=== PATIENT | male | born 1935 | race Caucasian/White ===

== ENCOUNTER → 2017-05-21 | Outpatient (CLI) | payer MEDICARE, OTHER ==
--- NOTE | 2017-05-21 16:32 | XR ---
EXAMINATION TYPE: XR chest 2V DATE OF EXAM: 05/21/2017 COMPARISON: Prior chest x-ray 07/27/2010, plain film 04/16/2017. HISTORY: Hypertension, preop TECHNIQUE: Frontal and lateral views of the chest are obtained. FINDINGS: There is no focal air space opacity, pleural effusion, or pneumothorax seen. Right apical pleural scarring greater than left is again noted. The cardiac silhouette size is stable. Arthropath y noted, hypertrophic change of the acromioclavicular joint on the right. There is distortion of the proximal humerus as on plain film, there are findings of osteoarthritis. The osseous structures are i ntact. IMPRESSION: No acute cardiopulmonary process.
== END | disposition home or self-care (01) ==
LOC: RADXRMAIN 14:55
PROVIDERS: ATTEND Family Medicine
DX: I10 Essential (primary) hypertension (principal)
CPT/HCPCS: 71020

== ENCOUNTER → 2018-10-21 | Outpatient (CLI) | payer MEDICARE, OTHER ==
--- NOTE | 2018-10-21 13:30 | US ---
EXAMINATION TYPE: US carotid duplex BILAT DATE OF EXAM: 10/21/2018 COMPARISON: NONE CLINICAL HISTORY: R55 Syncope. Patient complains of right sided weakness, and lightheadedness after s itting (not laying). History of CA, base of tongue. Chemotherapy and Radiation finished in 2004. Narinder es any surgical intervention. EXAM MEASUREMENTS: RIGHT: Peak Systolic Velocity (PSV) cm/sec ----- Right CCA: 77.8 ----- Right ICA: 122.2 ----- Right ECA: 106.1 ICA/CCA ratio: 1.6 RIGHT: End Diastole cm/sec ----- Right CCA: 28.5 ----- Right ICA: 33.3 ----- Right ECA: 18.8 LEFT: Peak Systolic Velocity (PSV) cm/sec ----- Left CCA: 71.5 ----- Left ICA: 123.8 ----- Left ECA: 104.4 ICA/CCA ratio: 1.7 LEFT: End Diastole cm/sec ----- Left CCA: 23.5 ----- Left ICA: 28.5 ----- Left ECA: 20.4 VERTEBRALS (direction of flow): Right Vertebral: Antegrade Left Vertebral: Antegrade Rhythm: Normal Mild atherosclerotic changes seen. No increased flow noted. Difficulty identifying right internal jug ular vein. IMPRESSION: Values approach criteria for 50% stenosis of the bilateral internal carotid arteries how ever do not meet criteria at this time. No hemodynamically significant stenosis is seen on the curren t exam. Criteria for Assigning % of Stenosis / Diameter reduction (Estimation based on the indirect measurements of the internal carotid artery velocities (ICA PSV). 1. Normal (no stenosis)=ICA PSV < 125 cm/s: ratio < 2.0: ICA EDV<40 cm/s. 2. Less than 50% stenosis=ICA PSV < 125 cm/s: ratio < 2.0: ICA EDV<40 cm/s. 3. 50 to 69% stenosis=ICA PSV of 125 to 230 cm/s: ration 2.0 ? 4.0: ICA EDV 40-100 cm/s. 4. Greater than 70% stenosis to near occlusion= ICA PSV > 230 cm/s: ratio > 4.0: ICA EDV > 100 cm/s. 5. Near occlusion= ICA PSV velocities may be low or undetectable: variable ratio and ICA EDV. 6. Total occlusion=unable to detect flow.
--- NOTE | 2018-10-21 13:44 | CT ---
EXAMINATION TYPE: CT brain w con DATE OF EXAM: 10/21/2018 COMPARISON: None INDICATION: Right sided weakness, cholesterol in right eye-per patient DLP: 1036.0 mGycm, Automated exposure control for dose reduction was used. CONTRAST: 100 mL Isovue-300 CT of the brain is performed utilizing 3 mm thick sections through the posterior fossa and 3 mm thick sections through the remaining calvarium. Study is performed within 24 hours of arrival to the hosp ital. No abnormal hyperdensity is present to suggest an acute intracranial hemorrhage. No mass lesion is evident. No acute infarcts are evident. Minimal periventricular white matter hypodensity is present, likely on the basis of chronic white matter ischemic changes. Ventricles and sulci are appropriate for the patient age. No abnormal enhancement is evident. The globes as visualized appear unremarkable. Intraconal and extr aconal fat appears normal. Extraocular muscles are unremarkable. Optic nerves appear normal. Paranasal sinuses and mastoid air cells within the [id number] are clear. IMPRESSIONS: 1. Mild chronic appearing periventricular white matter ischemic changes. 2. No abnormal enhancement.
== END | disposition home or self-care (01) ==
LOC: RADUSMAIN 10:31
PROVIDERS: ATTEND Family Medicine
DX: I65.23 Occlusion and stenosis of bilateral carotid arteries (principal)
CPT/HCPCS: 82565; 84520; 93880; 70460; 36415; Q9967

== ENCOUNTER → 2019-02-11 | Outpatient (CLI) | payer MEDICARE, OTHER ==
--- NOTE | 2019-02-11 13:33 | US ---
EXAMINATION TYPE: US duplex aorta DATE OF EXAM: 02/11/2019 COMPARISON: NONE CLINICAL HISTORY: Z13.6 screening for cardiovascular disorders. Screening for cardiovascular disorder s, patient states no other symptoms. EXAM MEASUREMENTS: Abdominal Aorta: Proximal: 2.5 x 2.3cm Mid: 2.2 x 2.2cm Distal: 2.0 x 1.7cm Right Iliac: 1.1 x 1.0cm Left Iliac: 1.1 x 1.1cm No AAA seen at this time. IMPRESSION: No sonographic evidence of abdominal aortic aneurysm in the visualized portions of the ab dominal aorta.
== END | disposition home or self-care (01) ==
LOC: RADUSWWP 12:56
PROVIDERS: ATTEND Family Medicine
DX: Z13.6 Encounter for screening for cardiovascular disorders (principal)
CPT/HCPCS: 93979

== ENCOUNTER → 2019-08-16 | Outpatient (CLI) | payer MEDICARE, OTHER ==
--- NOTE | 2019-08-16 16:17 | XR ---
EXAMINATION TYPE: XR cervical spine comp DATE OF EXAM: 08/16/2019 CLINICAL HISTORY: pain COMPARISON: NONE TECHNIQUE: Frontal, lateral, oblique, swimmers, and open mouth view of the cervical spine are obtaine d. FINDINGS: The cervical spine is visualized in its entirety from C1 thru the top of T1 level. It is s atisfactory in alignment without evidence of acute fracture or dislocation. The pre-vertebral soft t issue appears within normal limits. Severe multilevel degenerative disc disease with spondylosis. Paolo ateral neural foraminal encroachment at C3-4 C4-5 and C5-6. The C1-C2 articulation is unremarkable on the open mouth view. The oblique images are within normal limits. IMPRESSION: No acute fracture or dislocation is seen in the cervical spine.ICD 10 NO FRACTURE, INITI AL EVALUATION
== END | disposition home or self-care (01) ==
LOC: RADXRMAIN 15:41
PROVIDERS: ATTEND Family Medicine
DX: M54.2 Cervicalgia (principal)
CPT/HCPCS: 72050

== ENCOUNTER → 2019-09-02 | Outpatient (CLI) | payer MEDICARE, OTHER ==
--- NOTE | 2019-09-02 22:03 | MR ---
EXAMINATION TYPE: MR cervical spine wo con DATE OF EXAM: 09/02/2019 COMPARISON: None HISTORY: 84-year-old male Neck pain into right arm, weakness TECHNIQUE: Multiplanar, multisequence images of the cervical spine were acquired. FINDINGS: No craniocervical junction abnormality, predental space widening, or prevertebral soft tissue swellin g. Preserved alignment of the cervical spine. Marked diffuse heterogeneity of marrow signal likely corresponding to mixed Modic changes, primarily sclerotic Modic changes. Scattered moderate to severe discussion plate degenerative changes present, greatest at C3-C4 and the n at C6-C7. 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 Some degenerative bridging interbody ankylosis across C3-C4. Desiccated discs are present throughout with disc osteophyte complex formation as well as marked liga ment flavum thickening. Hypertrophic facet and uncovertebral joint arthropathy throughout. From C2 through C5 levels, there is severe spinal canal stenoses varying between 3.4 and 4.6 mm AP ca nal dimension. It impingement of the cord at these levels both dorsally and ventrally. At C3-C4, there is some focal increased signal within the right hemicord with associated volume loss suggesting chronic compressive myelomalacia. At C5-C6, there is moderate spinal canal stenosis with AP canal dimension of 6.4 mm also with flatten ing of both the dorsal and ventral cord. Multilevel moderate neural foraminal stenoses are present throughout, more severe at C3-C4 and on the right at C5-C6. IMPRESSION: 1. Moderate to advanced disc/endplate degenerative change along with advanced hypertrophic facet and uncovertebral joint arthropathy and ligamentum flavum thickening. 2. There is underlying congenital spinal canal stenosis with negative AP canal dimension of 9 mm. 3. Overall changes result in severe spinal canal stenoses from C2 through C5 levels with AP canal dim ension varying between 3.4 and 4.6 mm. There is impingement of the cord at these levels and a focus o f chronic compressive myelomalacia within the right hemicord at the C3-C4 level. 4. Moderate spinal canal stenosis at C5-C6 also with flattening of both the dorsal and ventral cord a t this level. 5. Moderate neuroforaminal stenoses throughout, more severe on both sides at C3-C4 and on the right a t C5-C6. 6. Extensive marrow heterogeneity likely secondary to combination of mixed Modic endplate changes and red marrow hyperplasia.
== END | disposition home or self-care (01) ==
LOC: RADMRIMAIN 12:46
PROVIDERS: ATTEND Family Medicine
DX: M48.02 Spinal stenosis, cervical region (principal); M47.812 Spondylosis without myelopathy or radiculopathy, cervical region
CPT/HCPCS: 72141

== ENCOUNTER → 2020-04-06 | Outpatient (CLI) | payer MEDICARE, OTHER ==
[2020-04-06 12:00] LABS: Basophils % (A) 0 %; Eosinophils # (A) 0.1 k/uL (0-0.7); Eosinophils % (A) 1 %; HCT 39.9 % (39.0-53.0); HGB 13.1 gm/dL (13.0-17.5); Lymphocytes # (A) 1.2 k/uL (1.0-4.8); Lymphocytes % (A) 12 %; MCH 32.9 pg (25.0-35.0); MCHC 32.9 g/dL (31.0-37.0); Mean Platelet Volume 8.5; Monocytes # (A) 0.5 k/uL (0-1.0); Monocytes % (A) 5 %; Neutrophils # (A) 7.8 k/uL (1.3-7.7); Neutrophils % (A) 80 %; Platelet Count 194 k/uL (150-450); RBC 3.99 m/uL (4.30-5.90); RDW 13.1 % (11.5-15.5); WBC 9.8 k/uL (3.8-10.6)
[2020-04-06 12:24] LABS: Calcium 9.2 mg/dL (8.4-10.2); Potassium 4.7 mmol/L (3.5-5.1)
== END | disposition home or self-care (01) ==
LOC: LABPAT 10:34
PROVIDERS: ATTEND Urology
DX: Z01.818 Encounter for other preprocedural examination (principal); N40.1 Benign prostatic hyperplasia with lower urinary tract symptoms; Z79.899 Other long term (current) drug therapy; I10 Essential (primary) hypertension
CPT/HCPCS: 36415; 80048; 85025; 93005

== ENCOUNTER 2020-04-13 06:21 | Day surgery (SDC) | payer MEDICARE, OTHER ==
[2020-04-10 11:57] VITALS: BMI 29.2
--- NOTE | 2020-04-10 13:14 | P.GSHP ---
History of Present Illness H&P Date: 04/06/20 Chief Complaint: Difficulty voiding The patient is an 85-year-old white male with a history of BPH. He was placed on tamsulosin in December 2019. Finasteride was added the following month. However, he continues to experience difficulty voiding, and bladder emptying is incomplete. He was found to have a UTI on 04/04/2020. A urine culture was sent, and he was placed on ciprofloxacin. He has elected to undergo a TURP and comes for this reason. - Constitutional Constitutional: Denies chills, Denies fever - Gastrointestinal Gastrointestinal: Reports diarrhea - Genitourinary (Female) Genitourinary: Reports dysuria, Reports urinary frequency Past Medical History - Past Family History Daughter(s) Family Medical History: Cancer Additional Family Medical History / Comment(s): colon cancer Mother Brother(s) Family Medical History: Myocardial Infarction (MA) Medications and Allergies Home Medications Medication Instructions Recorded Confirmed Type Acetaminophen [Tylenol Extra 500 - 1,000 mg PO BID PRN 05/28/17 04/10/20 History Strength] Aspirin 81 mg PO DAILY 05/28/17 04/10/20 History Atorvastatin [Lipitor] 10 mg PO HS 05/28/17 04/10/20 History Cholecalciferol [Vitamin D3] 2,000 unit PO DAILY 05/28/17 04/10/20 History Levothyroxine Sodium [Synthroid] 50 mcg PO DAILY 05/28/17 04/10/20 History Saw [place] 450 mg PO BID 05/28/17 04/10/20 History Ciprofloxacin HCl [Cipro] 250 mg PO BID 04/10/20 04/10/20 History Finasteride [Proscar] 5 mg PO DAILY 04/10/20 04/10/20 History Montelukast Sodium [Singulair] 10 mg PO HS 04/10/20 04/10/20 History Tamsulosin HCl [Flomax] 0.4 mg PO BID 04/10/20 04/10/20 History Allergies Allergy/AdvReac Type Severity Reaction Status Date / Time Sulfa (Sulfonamide Allergy Itching Verified 04/10/20 11:13 Antibiotics) Surgical - Exam - General well developed, well nourished, no distress - Respiratory normal respiratory effort, clear to auscultation - Cardiovascular Rhythm: regular Abnormal Heart Sounds: no systolic murmur, no diastolic murmur, no rub, no S3 Gallop, no S4 Gallop, no click, no other - Abdomen Abdomen: soft, non tender, no guarding, no rigid, no rebound - Genitourinary normal penis with no external lesions, testicles non-tender - Rectum Rectum: normal sphincter tone, no masses, other (Prostate moderately enlarged but smooth) - Psychiatric oriented to time, oriented to person, oriented to place, speech is normal, memory intact Assessment and Plan (1) Benign prostatic hyperplasia with lower urinary tract symptoms Status: Acute Code(s): N40.1 - BENIGN PROSTATIC HYPERPLASIA WITH LOWER URINARY TRACT SYMP SNOMED Code(s): 234129847 Plan: Cystoscopy, bipolar transurethral resection of prostate (TURP). The procedure has been reviewed in detail with the patient and his . They are aware of potential risks, which include anesthesia, bleeding, infection, urinary incontinence, vesical neck contracture, urethral stricture, and persistent incomplete bladder emptying.
[~2020-04-13 06:21] MED LIST: GENTAMICIN 100 MG in SODIUM CHLORIDE 0.9% 100 ML IVPB ONE; HYDROmorphone 0.5 MG/0.5 ML SYRINGE IVP PRN; ONDANSETRON 4 MG/2 ML VIAL IVP ONE
[2020-04-13] MEDS: LACTATED RINGERS 1,000 ML IV SCH ×3 (07:00→13:35)
[2020-04-13] MEDS ORDERED: MIDAZOLAM 2 MG/2 ML VIAL ONE (07:31)
[2020-04-13] MEDS ORDERED: fentaNYL (PF) 50 MCG/ML 2 ML AMP ONE (07:31)
[2020-04-13 09:07] VITALS: TEMP 97
--- NOTE | 2020-04-13 09:10 | P.OP ---
Date of Procedure: 04/13/20 Preoperative Diagnosis: BPH with obstruction Postoperative Diagnosis: BPH with obstruction, bulbous urethral stricture Procedure(s) Performed: Cystoscopy, direct visual internal ureterotomy (DVIU), bipolar transurethral resection of prostate (TURP) Anesthesia: spinal Surgeon: Samson Ruffin Estimated Blood Loss (ml): 30 IV fluids (ml): 400 Pathology: other (Prostate chips) Condition: stable Disposition: PACU Indications for Procedure: The patient is an 85-year-old white male with a history of BPH. He was placed on tamsulosin in December 2019. Finasteride was added the following month. However, he continues to experience difficulty voiding, and bladder emptying is incomplete. He was found to have a UTI on 04/04/2020. A urine culture was sent, and he was placed on ciprofloxacin. He has elected to undergo a TURP and comes for this reason. Operative Findings: 1) Wide caliber bulbous urethral stricture. 2) Obstructing high median bar Description of Procedure: The patient was taken in the operating room and placed in the dorsolithotomy position after being given a spinal anesthetic. The external genitalia was prepped and draped sterilely. The Jake urethrotome was used to incise the urethra to 25-Prydeinig. The 25-Prydeinig ACMI resectoscope sheath was introduced into the urethra under direct vision. Within the proximal bulbous urethra was a wide caliber stricture, through which the resectoscope could not be advanced. The visual urethrotome was used to incise the stricture at the 12 o'clock position, allowing passage of the resectoscope into the bladder. The bladder was inspected. Both ureteral orifices were of normal anatomic location and configuration, and clear urine effluxed from both. No tumors or foreign bodies were seen. Examination of the prostate revealed complete obstruction with a bilobar configuration. The majority of the obstruction was due to a high median bar. Using the bipolar cutting loop, the midline of the prostate was resected, from the vesicle neck up to the verumontanum. This opened the prostatic fossa nicely. Lateral lobe tissue was then resected from 3:00 to 9:00, leaving the prostatic fossa open. The prostatic fossa was then carefully examined, and any areas of bleeding were controlled with electrocautery. Excellent hemostasis was attained. The resectoscope was withdrawn into the bulbous urethra. The external urinary sphincter remained intact. All prostate chips from the bladder. These were saved and sent for pathologic examination. The resectoscope was removed, and a 20 Prydeinig Coude Lopez catheter was placed. The return was clear. The patient tolerated the procedure well was taken to the recovery room in stable condition.
[2020-04-13 11:09] VITALS: RESP 18
[2020-04-13 12:29] VITALS: BP 126/74; PULSE 86
== END 2020-04-13 14:00 | disposition home or self-care (01) ==
LOC: OR 06:21
PROVIDERS: ATTEND Urology
DX: N40.1 Benign prostatic hyperplasia with lower urinary tract symptoms (principal); N13.8 Other obstructive and reflux uropathy; N35.912 Unspecified bulbous urethral stricture, male; I25.10 Atherosclerotic heart disease of native coronary artery without angina pectoris; E78.5 Hyperlipidemia, unspecified; E07.9 Disorder of thyroid, unspecified; K21.9 Gastro-esophageal reflux disease without esophagitis; Z88.2 Allergy status to sulfonamides; Z79.82 Long term (current) use of aspirin; Z79.890 Hormone replacement therapy; Z79.899 Other long term (current) drug therapy; Z90.49 Acquired absence of other specified parts of digestive tract; Z98.890 Other specified postprocedural states; Z87.440 Personal history of urinary (tract) infections; Z85.810 Personal history of malignant neoplasm of tongue; Z82.49 Family history of ischemic heart disease and other diseases of the circulatory system; Z80.0 Family history of malignant neoplasm of digestive organs
CPT/HCPCS: 88305; 52601; J2250; J0690; J2405; J3010; J1580

== ENCOUNTER → 2020-09-11 | Outpatient (CLI) | payer MEDICARE ==
[2020-09-11 22:57] LABS: Basophils # (A) 0.01 X 10*3/uL (0.00-0.10); Basophils % (A) 0.2 %; Eosinophils # (A) 0.07 X 10*3/uL (0.04-0.35); Eosinophils % (A) 1.2 %; HCT 38.4 % (39.6-50.0); HGB 12.9 g/dL (13.0-17.0); Lymphocytes # (A) 1.87 X 10*3/uL (0.90-5.00); Lymphocytes % (A) 32.1 %; MCHC 33.6 g/dL (32.0-37.0); MCV 95.3 fL (80.0-97.0); Mean Platelet Volume 10.3 fL (9.5-12.2); Monocytes # (A) 0.61 X 10*3/uL (0.20-1.00); Monocytes % (A) 10.5 %; Neutrophils # (A) 3.25 X 10*3/uL (1.80-7.70); Neutrophils % (A) 55.8 %; Platelet Count 214 X 10*3/uL (140-440); RBC 4.03 X 10*6/uL (4.40-5.60); RDW 14.6 % (11.5-14.5); WBC 5.82 X 10*3/uL (4.50-10.00)
[2020-09-12 02:43] LABS: Erythrocyte Sedimentation Rate 25 mm/Hr (0-20)
[2020-09-12 03:22] LABS: African American GFR (CKD) 71.1 (60.0-200.0); BUN/Creat Ratio 18.18 Ratio (12.00-20.00); C Reactive Protein <0.4 mg/dL (0.0-0.8); Calcium 9.5 mg/dL (8.7-10.3); Carbon Dioxide 26.7 mmol/L (21.6-31.8); Chloride 106 mmol/L (96-109); Glucose 89 mg/dL (70-110); Non-African American GFR(CKD) 61.3 (60.0-200.0); Potassium 4.3 mmol/L (3.5-5.5); Sodium 141 mmol/L (135-145)
== END | disposition home or self-care (01) ==
LOC: LABWHC1 16:33
PROVIDERS: ATTEND Internal Medicine Infectious Disease
DX: K11.3 Abscess of salivary gland (principal)
CPT/HCPCS: 36415; 80048; 85025; 85652; 86140

== ENCOUNTER → 2020-09-18 | Outpatient (CLI) | payer MEDICARE ==
[2020-09-18 23:51] LABS: Basophils # (A) 0.01 X 10*3/uL (0.00-0.10); Basophils % (A) 0.2 %; Eosinophils # (A) 0.05 X 10*3/uL (0.04-0.35); HCT 37.4 % (39.6-50.0); HGB 12.3 g/dL (13.0-17.0); Lymphocytes # (A) 1.56 X 10*3/uL (0.90-5.00); Lymphocytes % (A) 31.5 %; MCH 31.9 pg (27.0-32.0); MCHC 32.9 g/dL (32.0-37.0); MCV 96.9 fL (80.0-97.0); Mean Platelet Volume 10.5 fL (9.5-12.2); Monocytes # (A) 0.42 X 10*3/uL (0.20-1.00); Monocytes % (A) 8.5 %; Neutrophils % (A) 58.6 %; Platelet Count 174 X 10*3/uL (140-440); RBC 3.86 X 10*6/uL (4.40-5.60); RDW 14.5 % (11.5-14.5); WBC 4.95 X 10*3/uL (4.50-10.00)
[2020-09-19 01:09] LABS: Erythrocyte Sedimentation Rate 21 mm/Hr (0-20)
[2020-09-19 05:07] LABS: African American GFR (CKD) 71.1 (60.0-200.0); BUN/Creat Ratio 12.73 Ratio (12.00-20.00); C Reactive Protein <0.4 mg/dL (0.0-0.8); Calcium 9.3 mg/dL (8.7-10.3); Carbon Dioxide 29.1 mmol/L (21.6-31.8); Chloride 105 mmol/L (96-109); Glucose 141 mg/dL (70-110); Non-African American GFR(CKD) 61.3 (60.0-200.0); Potassium 3.9 mmol/L (3.5-5.5); Sodium 142 mmol/L (135-145)
== END ==
LOC: LABWHC1 15:23
PROVIDERS: ATTEND Internal Medicine Infectious Disease
DX: M86.68 Other chronic osteomyelitis, other site (principal)
CPT/HCPCS: 36415; 80048; 85025; 85652; 86140

== ENCOUNTER → 2020-09-29 | Outpatient (CLI) | payer MEDICARE, OTHER ==
--- NOTE | 2020-09-30 09:37 | CT ---
EXAMINATION TYPE: CT facial bones wo con DATE OF EXAM: 09/29/2020 COMPARISON: 09/07/2010 HISTORY: RT jaw pain, swelling, osteomyelitis. CT DLP: 642.50 mGycm Automated exposure control for dose reduction was used. TECHNIQUE: CT scan of the sinuses is performed without contrast, axial images are obtained, coronal r eformatted images are also reviewed. FINDINGS: There is a focal area of bony destruction in the right mandible in addition there is a camacho ection of gas within the medullary cavity. The findings are consistent with osteomyelitis of the righ t mandible. Left mandible is intact. Paranasal sinuses are well aerated there are small mucous retention cysts or polyps in the floor of t he maxillary sinuses bilaterally. The ostomy immune complexes are patent. The frontal and ethmoid air cells are well aerated as are the mastoid air cells and middle ear caviti es. 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
== END | disposition home or self-care (01) ==
LOC: RADCTMAIN 17:30
PROVIDERS: ATTEND Internal Medicine Infectious Disease
DX: R68.84 Jaw pain (principal); M86.9 Osteomyelitis, unspecified
CPT/HCPCS: 70486

== ENCOUNTER 2020-09-30 12:03 | Inpatient (IN) | payer MEDICARE, OTHER ==
[2020-09-30] MEDS ORDERED: VANCOMYCIN IV PER PHARMACY 1 EACH MISC MISCELLANE PRN (13:10)
--- NOTE | 2020-09-30 13:18 | ED ---
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 Patient states about 6 ye ars ago he started having issues with fractures of the jaw infection of the jaw. Patient states more recently he is having some significant redness to the right mid mandible and yesterday had a CAT scan showing good osteomyelitis. Patient was coming in to be admitted and to see Dr. Carvalho from infectious disease. Patient denies any difficulty breathing or swallowing. Patient is a chest pain or palpitations. Patient denies headache patient denies numbness weakness. Patient denies abdominal pain patient's nausea vomiting diarrhea. - Related Data Home Medications Medication Instructions Recorded Confirmed Acetaminophen [Tylenol Extra 500 - 1,000 mg PO BID PRN 05/28/17 04/13/20 Strength] Aspirin 81 mg PO DAILY 05/28/17 04/13/20 Atorvastatin [Lipitor] 10 mg PO HS 05/28/17 04/13/20 Cholecalciferol [Vitamin D3] 2,000 unit PO DAILY 05/28/17 04/13/20 Levothyroxine Sodium [Synthroid] 50 mcg PO DAILY 05/28/17 04/13/20 Saw [place] 450 mg PO BID 05/28/17 04/13/20 Ciprofloxacin HCl [Cipro] 250 mg PO BID 04/10/20 04/13/20 Finasteride [Proscar] 5 mg PO DAILY 04/10/20 04/13/20 Montelukast Sodium [Singulair] 10 mg PO HS 04/10/20 04/13/20 Tamsulosin HCl [Flomax] 0.4 mg PO BID 04/10/20 04/13/20 Allergies Allergy/AdvReac Type Severity Reaction Status Date / Time Sulfa (Sulfonamide Allergy Itching Verified 09/30/20 12:18 Antibiotics) Review of Systems ROS Statement: Those systems with pertinent positive or pertinent negative responses have been documented in the HPI. ROS Other: All systems not noted in ROS Statement are negative. Past Medical History Past Medical History: GERD/Reflux, Hyperlipidemia, Thyroid Disorder Additional Past Medical History / Comment(s): CA of his tongue. History of Any Multi-Drug Resistant Organisms: None Reported Past Surgical History: Cholecystectomy, Orthopedic Surgery, Tonsillectomy Additional Past Surgical History / Comment(s): Cataract Past Psychological History: No Psychological Hx Reported Smoking Status: Never smoker Past Alcohol Use History: None Reported Past Drug Use History: None Reported General Exam - General Exam Comments Initial Comments: GENERAL: Patient is well-developed and well-nourished. Patient is nontoxic and well- hydrated and is in mild distress. ENT: Neck is soft and supple. No significant lymphadenopathy is noted. Oropharynx is clear. Moist mucous membranes. The area over the right mandible is erythematous tender and warm there is a small area that is fluctuant. EYES: The sclera were anicteric and conjunctiva were pink and moist. Extraocular movements were intact and pupils were equal round and reactive to light. Eyelids were unremarkable. PULMONARY: Unlabored respirations. Good breath sounds bilaterally. No audible rales rhon chi or wheezing was noted. CARDIOVASCULAR: There is a regular rate and rhythm without any murmurs gallops or rubs. ABDOMEN: Soft and nontender with normal bowel sounds. SKIN: Skin is clear with no lesions or rashes and otherwise unremarkable. NEUROLOGIC: Patient is alert and oriented x3. Cranial nerves II through XII are grossly intact. Motor and sensory are also intact. Normal speech, volume and content. Symmetrical smile. MUSCULOSKELETAL: Normal extremities with adequate strength and full range of motion. LYMPHATICS: No significant lymphadenopathy is noted PSYCHIATRIC: Normal psychiatric evaluation. Limitations: no limitations Course Vital Signs 09/30/20 12:14 Temperature 98.9 F Pulse Rate 83 Respiratory 20 Rate Blood Pressure 122/70 O2 Sat by Pulse 100 Oximetry Medical Decision Making - Medical Decision Making EKG shows a normal sinus rhythm at 73 bpm NE interval 180 [place] 86 QT interval 372 QTC is 49. Patient's EKG shows no ST segment depression or depression. I reviewed the CAT scan from yesterday did show osteomyelitis of the mandible. I started the patient on Rocephin one dose and gave the patient vancomycin and I consulted Dr. Carvalho. I spoke with the [facility] hospitalist and admitted the patient wrote admitting orders. - Lab Data Result diagrams: 09/30/20 13:28 09/30/20 13:28 Lab Results 04/09/1709/30/20 09/30/20 Range/Units 13:28 13:28 13:28 WBC 6.0 (3.8-10.6) k/uL RBC 4.07 L (4.30-5.90) m/uL Hgb 13.4 (13.0-17.5) gm/dL Hct 39.0 (39.0-53.0) % MCV 95.9 (80.0-100.0) fL MCH 32.9 (25.0-35.0) pg MCHC 34.3 (31.0-37.0) g/dL RDW 13.6 (11.5-15.5) % Plt Count 198 (150-450) k/uL MPV 7.9 Neutrophils % 74 % Lymphocytes % 16 % Monocytes % 5 % Eosinophils % 1 % Basophils % 0 % Neutrophils # 4.4 (1.3-7.7) k/uL Lymphocytes # 1.0 (1.0-4.8) k/uL Monocytes # 0.3 (0-1.0) k/uL Eosinophils # 0.0 (0-0.7) k/uL Basophils # 0.0 (0-0.2) k/uL PT 10.2 (9.0-12.0) sec INR 0.9 (<1.2) APTT 23.7 (22.0-30.0) sec Sodium 138 (137-145) mmol/L Potassium 4.6 (3.5-5.1) mmol/L Chloride 102 (98-107) mmol/L Carbon Dioxide 30 (22-30) mmol/L Anion Gap 6 mmol/L BUN 17 (9-20) mg/dL Creatinine 1.05 (0.66-1.25) mg/dL Est GFR (CKD-EPI)AfAm 76 (>60 ml/min/1.73 sqM) Est GFR (CKD-EPI)NonAf 65 (>60 ml/min/1.73 sqM) Glucose 98 (74-99) mg/dL Plasma Lactic Acid Corey (0.7-2.0) mmol/L Calcium 9.1 (8.4-10.2) mg/dL Total Bilirubin 0.5 (0.2-1.3) mg/dL AST 23 (17-59) U/L ALT 10 (4-49) U/L Alkaline Phosphatase 55 (38-126) U/L Total Protein 6.5 (6.3-8.2) g/dL Albumin 3.7 (3.5-5.0) g/dL Coronavirus (PCR) (Not Detectd) 09/30/20 09/30/20 Range/Units 13:28 13:28 WBC (3.8-10.6) k/uL RBC (4.30-5.90) m/uL Hgb (13.0-17.5) gm/dL Hct (39.0-53.0) % MCV (80.0-100.0) fL MCH (25.0-35.0) pg MCHC (31.0-37.0) g/dL RDW (11.5-15.5) % Plt Count (150-450) k/uL MPV Neutrophils % % Lymphocytes % % Monocytes % % Eosinophils % % Basophils % % Neutrophils # (1.3-7.7) k/uL Lymphocytes # (1.0-4.8) k/uL Monocytes # (0-1.0) k/uL Eosinophils # (0-0.7) k/uL Basophils # (0-0.2) k/uL PT (9.0-12.0) sec INR (<1.2) APTT (22.0-30.0) sec Sodium (137-145) mmol/L Potassium (3.5-5.1) mmol/L Chloride (98-107) mmol/L Carbon Dioxide (22-30) mmol/L Anion Gap mmol/L BUN (9-20) mg/dL Creatinine (0.66-1.25) mg/dL Est GFR (CKD-EPI)AfAm (>60 ml/min/1.73 sqM) Est GFR (CKD-EPI)NonAf (>60 ml/min/1.73 sqM) Glucose (74-99) mg/dL Plasma Lactic Acid Corey 1.2 (0.7-2.0) mmol/L Calcium (8.4-10.2) mg/dL Total Bilirubin (0.2-1.3) mg/dL AST (17-59) U/L ALT (4-49) U/L Alkaline Phosphatase (38-126) U/L Total Protein (6.3-8.2) g/dL Albumin (3.5-5.0) g/dL Coronavirus (PCR) Not Detected (Not Detectd) Disposition Clinical Impression: Osteomyelitis of mandible Disposition: ADMITTED IP TO THIS HOSP Referrals: Irvin Sauceda MD [Primary Care Provider] - 1-2 days Time of Disposition: 14:28
[2020-09-30] MEDS ORDERED: VANCOMYCIN 1,500 MG in SODIUM CHLORIDE 0.9% 250 ML IVPB ONE (13:45)
[2020-09-30 13:47] LABS: Basophils % (A) 0 %; Eosinophils % (A) 1 %; HGB 13.4 gm/dL (13.0-17.5); Lymphocytes % (A) 16 %; MCH 32.9 pg (25.0-35.0); MCHC 34.3 g/dL (31.0-37.0); MCV 95.9 fL (80.0-100.0); Mean Platelet Volume 7.9; Monocytes # (A) 0.3 k/uL (0-1.0); Monocytes % (A) 5 %; Neutrophils # (A) 4.4 k/uL (1.3-7.7); Neutrophils % (A) 74 %; Platelet Count 198 k/uL (150-450); RBC 4.07 m/uL (4.30-5.90); RDW 13.6 % (11.5-15.5)
[2020-09-30 14:00] LABS: INR 0.9 (<1.2); Partial Thromboplastin Time 23.7 sec (22.0-30.0); Prothrombin Time 10.2 sec (9.0-12.0)
[2020-09-30 14:03] LABS: Albumin 3.7 g/dL (3.5-5.0); Calcium 9.1 mg/dL (8.4-10.2); Potassium 4.6 mmol/L (3.5-5.1); Total Bilirubin 0.5 mg/dL (0.2-1.3); Total Protein 6.5 g/dL (6.3-8.2)
[2020-09-30] MEDS: SODIUM CHLORIDE 0.9% 500 ML 500 ML IV SCH ×2 (14:25→19:46)
[2020-09-30] MEDS ORDERED: SODIUM CHLORIDE 0.9% 1,000 ML IV ONE (14:28)
[2020-09-30 14:41] LABS: Appearance,Urine Clear (Clear); Bilirubin,Urine Negative (Negative); Blood,Urine Trace (Negative); Color,Urine Light Yellow; Glucose,Urine (UA) Negative (Negative); Ketones,Urine Negative (Negative); Leukocyte Esterase,Urine Negative (Negative); Nitrite,Urine Negative (Negative); PH, Urine 6.5 (5.0-8.0); Protein,Urine Negative (Negative); Specific Gravity,Urine 1.007 (1.001-1.035); Urobilinogen,Urine <2.0 mg/dL (<2.0); WBC,Urine 1 /hpf (0-5)
[2020-09-30] MEDS ORDERED: ARTIFICIAL TEARS-HYPROMELLOSE DROPS 15 ML BTL BOTH EYES PRN (17:40)
[2020-09-30] MEDS ORDERED: diphenhydrAMINE 25 MG CAP PO PRN (17:40)
[2020-09-30] MEDS ORDERED: ACETAMINOPHEN TAB 500 MG TAB PO PRN (17:40)
[2020-09-30] MEDS ORDERED: NON FORMULARY DRUG (Omeprazole Magnesium [Prilosec Otc] 20 MG Tablet.Dr) PO PRN (17:40)
[2020-09-30] MEDS ORDERED: FLUTICASONE 50MCG/SPRAY NASAL 16GM EA NOSTRIL PRN (17:40)
[2020-09-30] MEDS ORDERED: ALPRAZolam 0.25 MG TAB PO PRN (17:41)
[2020-09-30] MEDS ORDERED: HYDROmorphone 0.5 MG/0.5 ML SYRINGE IVP PRN (17:41)
[2020-09-30] MEDS: HYDROcodone/APAP 5-325MG 1 EACH TAB PO PRN (19:35)
--- NOTE | 2020-09-30 20:52 | HP ---
HISTORY AND PHYSICAL DATE OF SERVICE: 09/30/2020 I am covering for Dr. Irvin Sauceda. CHIEF COMPLAINTS: Pain and swelling of the right jaw. HISTORY OF PRESENT ILLNESS: This 85-year-old gentleman with a past medical history of multiple medical problems including history of GERD, hyperlipidemia, history of hypothyroidism, history of cholecystectomy, history of DJD, had oral cancer. The patient had carcinoma of the tongue and patient had surgery in [facility] about 16 years ago for squamous cell carcinoma of the tongue. About 6 years ago, the patient was having issues and jaw fracture was diagnosed with some infections. Most recently the patient was seen by [facility], Dr. Knowles, oral surgeon, and the patient was given p.o. antibiotics. The patient also had a CT scan of the jaw which showed osteomyelitis and Dr. Sheffield Infectious Disease recommended hospital admission. The patient will be admitted for further evaluation and treatment. The patient has severe pain in the right jaw and also swelling and pointing which is increasing in intensity with some erythema also noted in the right lower jaw area. Apparently a bone graft from the leg was also suggested by [facility] team, but because of the patient's age and other considerations, the family is not very keen on proceeding along those lines. Currently, there is no history of fever, rigors or chills. No history of headache, loss of consciousness or seizures. White count is 6 and hemoglobin 13.4. PAST MEDICAL HISTORY: History of squamous cell carcinoma of the tongue, history of GERD, hyperlipidemia, history of cholecystectomy. History of degenerative joint disease. MEDICATIONS: Flagyl, multivitamins, Benadryl, Prilosec, Neurontin, Trental, Levaquin, Flonase, Synthroid, vitamin D3, Lipitor, Tylenol. ALLERGIES: SULFA. FAMILY HISTORY: No history of heart disease or strokes in the family. SOCIAL HISTORY: No history of smoking. No history of alcohol intake. REVIEW OF SYSTEMS: ENT as mentioned earlier. CARDIOVASCULAR: No angina or palpitations. RESPIRATIONS: No cough. No hemoptysis. GI no nausea or vomiting. no dysuria. NERVOUS SYSTEM: No numbness or weakness. ALLERGY/IMMUNOLOGY: No asthma or hayfever. MUSCULOSKELETAL as mentioned earlier. HEMATOLOGY/ONCOLOGY: As mentioned earlier. ENDOCRINE as mentioned earlier. CONSTITUTIONAL: As mentioned earlier. DERMATOLOGY: Negative. RHEUMATOLOGY: Negative. PSYCHIATRY as mentioned earlier. PHYSICAL EXAMINATION: Alert and oriented times three. Pulse 72, blood pressure 111/70, respirations 18, temperature 98.7, pulse ox 100 percent on room air. HEENT: Conjunctivae normal. Oral mucosa moist. Conjunctivae normal. Otherwise, oral mucosa moist. Significant swelling and tenderness in the right side of the lower jaw with some fluctuation also present. The fluctuant areas about 1 x 1 cm. Some erythema also noted. Minimal lymphadenopathy otherwise. Cardiovascular system: S1, S2 muffled. No S3, no S4. RESPIRATION: Breath sounds diminished in the bases. A few scattered rhonchi. ABDOMEN: Soft, nontender. No mass palpable. LEGS: No edema. No swelling. NERVOUS SYSTEM: Higher functions as mentioned earlier. Moves all 4 limbs. No focal motor or sensory deficits. LYMPHATICS: No lymph nodes palpable in the neck, axilla and groin. SKIN: No ulcer, rashes or bleeding. JOINTS: No active deforming arthropathy. LABS: WBC 6, hemoglobin 13.4. Other labs noted. ASSESSMENT: 1. Acute osteomyelitis of the right jaw with pointing abscess possibly. 2. History of mandibular fracture. 3. 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 4. Hyperlipidemia. 5. Hypothyroidism. 6. Gastroesophageal reflux disease. 7. Cholecystectomy. 8. History of degenerative joint disease. 9. History of tonsillectomy. RECOMMENDATIONS AND DISCUSSION: This 85-year-old gentleman who presented with multiple complex medical issues, we will monitor the patient closely, continue the current medications, management and symptomatic treatment. Initiate broad-spectrum IV antibiotics. Infectious Disease, evaluation and otherwise resume the home medications. DVT prophylaxis. Prognosis guarded because of multiple complex medical issues. Discussed with the patient who understands and agrees. A copy of dictation being forwarded to Dr. Irvin Sauceda who is the primary physician. MMODL / IJN: [id number] /
[2020-09-30] MEDS: GABAPENTIN 300 MG CAP PO SCH (21:00)
[2020-09-30] MEDS: ATORVASTATIN 10 MG TAB PO SCH (21:00)
[2020-09-30] MEDS: HEPARIN SODIUM,PORCINE/PF 5,000 UNIT/0.5 ML SYRINGE SQ SCH (21:00)
[2020-10-01] MEDS: AMPICILLIN-SULBACTAM 3 GM in SODIUM CHLORIDE 0.9% 100 ML IVPB SCH ×5 (00:19→23:00)
[2020-10-01] MEDS: HYDROcodone/APAP 5-325MG 1 EACH TAB PO PRN (02:18)
--- NOTE | 2020-10-01 05:59 | CONS ---
CONSULTATION DATE OF SERVICE: 09/30/2020 REASON FOR CONSULTATION: Jaw osteomyelitis. HISTORY OF PRESENT ILLNESS: The patient is an 85-year-old male, past history significant for squamous cell carcinoma in this patient who is status post surgery, radiation and chemotherapy. The patient did have a history of right jaw osteomyelitis. This patient was recently diagnosed at [facility]. Patient has been advised extensive surgery. With no clear guarantee of cure, the patient decided to go against the surgery. The patient wanted to be treated medically. The patient has been on oral Levaquin, Flagyl and the patient showed initial clinical improvement with resolution of the swelling and redness and the patient decided to continue with oral Levaquin and Flagyl rather than going with IV antibiotic therapy. The patient apparently was last seen in the office on Friday. The patient was doing pretty well with no pain. Swelling and redness of the right lower jaw had improved and the patient was feeling better. The patient did call the office on with concern for increasing swelling to the right lower jaw. Meropenem was started the day of the patient's call to the office. An outpatient CT was arranged for the patient which was completed yesterday however reported this morning which shows possibility of right lower jaw osteomyelitis. The patient presented to the hospital and has been admitted by the ER physician. Infectious Disease was consulted for further management. The patient denies having any fever or any chills. Complaining of increasing swelling and redness of the right lower jaw for the last 3 days. He did have some dull aching pain about 5/10 and no radiation with associated swelling redness. Patient denies any difficulty swallowing. No chest pain, shortness of breath or cough. No nausea, no vomiting. No abdominal pain or diarrhea. The patient has been afebrile. On presentation to the hospital, his white count was normal, was 39, procalcitonin 13.3. [place] PCR was negative. The patient was admitted to the hospital. He did receive a dose of Rocephin and subsequently continued on Levaquin. Vancomycin was added. Infectious Disease was consulted for further management of antibiotic therapy. REVIEW OF SYSTEMS: Positive points have been mentioned in HPI. Rest of the systems are negative. PAST MEDICAL HISTORY: Gastroesophageal reflux disease, hyperlipidemia, hypothyroidism, carcinoma of the tongue. PAST SURGICAL HISTORY: Cholecystectomy, tonsillectomy, extensive tongue surgery with chemo and radiation. SOCIAL HISTORY: No history of smoking, drinking or any drug use. FAMILY HISTORY: No pertinent findings noticed. ALLERGIES: SULFA. MEDICATIONS: Currently the patient received a dose of Rocephin in the ER. He is currently on vancomycin, Trental, Protonix, Theragran, Synthroid, Dilaudid, Neurontin, folic acid, Benadryl, vitamin D3, Lipitor, Xanax, Tylenol, [place]. PHYSICAL EXAMINATION: VITAL SIGNS: Blood pressure 149/67 with a pulse of 55, temperature 97.8, he is 100% on room air. GENERAL DESCRIPTION: Patient is an elderly male lying in bed in no distress. No tachypnea or accessory muscles of respiration use. HEENT: Examination shows no pallor or scleral icterus. Right lower jaw has swelling, mild area of fluctuation, no guarding or rigidity. NECK: Trachea central, no thyromegaly. LUNGS: Unlabored breathing, clear to auscultation anteriorly. No wheeze or crackle. HEART: S1-S2, regular rate and rhythm. ABDOMEN: Soft, no tenderness. No guarding or rigidity. EXTREMITIES: No edema of the feet. SKIN: No rash or mass palpable. NEUROLOGICAL: Patient is awake, alert, oriented times three. Mood and affect normal. LABS: Hemoglobin 13.4, white count 6.0. Sedimentation rate is 39. BUN of 17, creatinine . Electrolytes have been normal. Liver enzymes are normal. DIAGNOSTIC IMPRESSION: Patient with right lower jaw osteomyelitis as seen on the CT. This patient did have extensive surgery for a tongue cancer followed by chemo and radiation. The patient was given the option of an extensive surgery and surgical correction of his osteomyelitis but the patient refused because of no clear guarantee of cure and initially did well on Levaquin and Flagyl. However, did have significant worsening over the last few days. PLAN: 1. Will wait for the ENT evaluation for possible I&D of this area and deep cultures with aerobic and anaerobic and that will guide further antibiotic therapy. 2. The patient will be started on Unasyn 3 grams q.6 hours. Continue with vancomycin. 3. We will follow on his clinical condition and culture to further adjust medication if needed. Thank you for this consultation. Will follow this patient along with you. MMODL / IJN: [id number] /
[2020-10-01] MEDS: PANTOPRAZOLE 40 MG TABLET PO SCH (06:26)
[2020-10-01] MEDS: VANCOMYCIN 1,250 MG in SODIUM CHLORIDE 0.9% 250 ML IVPB SCH (06:26)
[2020-10-01] MEDS: LEVOTHYROXINE 50 MCG TAB PO SCH (06:26)
[2020-10-01] MEDS: PENTOXIFYLLINE 400 MG TABLET.ER PO SCH ×3 (07:25→17:47)
[2020-10-01] MEDS: GABAPENTIN 300 MG CAP PO SCH ×3 (08:28→20:34)
[2020-10-01] MEDS: CHOLECALCIFEROL 25 MCG (1000 IU) TABLET PO SCH (08:28)
[2020-10-01] MEDS: HEPARIN SODIUM,PORCINE/PF 5,000 UNIT/0.5 ML SYRINGE SQ SCH ×2 (08:28→20:34)
[2020-10-01] MEDS ORDERED: LEVOFLOXACIN 750MG-D5W PMX 750 MG in DEXTROSE/WATER 1 150ML.BAG IVPB SCH (09:00)
[2020-10-01 09:15] LABS: Basophils # (A) 0.01 X 10*3/uL (0.00-0.10); Basophils % (A) 0.2 %; Eosinophils # (A) 0.05 X 10*3/uL (0.04-0.35); Eosinophils % (A) 1.2 %; HCT 35.4 % (39.6-50.0); HGB 11.8 g/dL (13.0-17.0); Lymphocytes # (A) 1.46 X 10*3/uL (0.90-5.00); Lymphocytes % (A) 35.9 %; MCH 32.1 pg (27.0-32.0); MCHC 33.3 g/dL (32.0-37.0); MCV 96.2 fL (80.0-97.0); Mean Platelet Volume 10.2 fL (9.5-12.2); Monocytes # (A) 0.39 X 10*3/uL (0.20-1.00); Monocytes % (A) 9.6 %; Neutrophils # (A) 2.15 X 10*3/uL (1.80-7.70); Neutrophils % (A) 52.9 %; Platelet Count 184 X 10*3/uL (140-440); RBC 3.68 X 10*6/uL (4.40-5.60); RDW 14.8 % (11.5-14.5); WBC 4.07 X 10*3/uL (4.50-10.00)
[2020-10-01 10:22] LABS: African American GFR (CKD) 90.6 (60.0-200.0); BUN/Creat Ratio 16.67 Ratio (12.00-20.00); Calcium 8.8 mg/dL (8.7-10.3); Non-African American GFR(CKD) 78.2 (60.0-200.0)
[2020-10-01 10:42] LABS: Anion Gap 6.5 mmol/L (4.00-12.00); Carbon Dioxide 26.5 mmol/L (21.6-31.8)
[2020-10-01] MEDS: FOLIC ACID 1 MG TAB PO SCH (13:26)
[2020-10-01] MEDS: MULTIVITAMINS, THERA 1 EACH TAB PO SCH (13:26)
[2020-10-01] MEDS: THIAMINE 100 MG TAB PO SCH (13:26)
--- NOTE | 2020-10-01 20:33 | PN ---
PROGRESS NOTE DATE OF SERVICE: 10/01/2020 REASON FOR FOLLOWUP: Right lower jaw osteomyelitis and abscess. INTERVAL HISTORY: The patient is currently afebrile. Patient overall pain and discomfort to the right lower jaw has decreased. Still has area of the swelling which has not opened up yet. No chest pain, shortness of breath, cough, no abdominal pain or diarrhea. PHYSICAL EXAMINATION: Blood pressure 135/65, pulse of 64, temperature 97.4. He is 96% on room air. General description: The patient is an elderly male up in the room in no distress. HEENT examination: Right lower jaw swelling slightly decreased. LUNGS: Unlabored breathing. Clear to auscultation. HEART: S1, S2. Regular rate and rhythm. ABDOMEN: Soft, no tenderness. LABS: Hemoglobin 11.1, white count 4.07. BUN of 15 and creatinine 0.9. DIAGNOSTIC IMPRESSION AND PLAN: Patient with right lower jaw osteomyelitis. Waiting for the ENT evaluation for possible ID and cultures. The patient is covered with Unasyn and vancomycin to continue and monitor clinical course closely. MMODL / IJN: [id number] /
[2020-10-01] MEDS: ATORVASTATIN 10 MG TAB PO SCH (20:34)
--- NOTE | 2020-10-01 21:58 | PN ---
PROGRESS NOTE DATE OF SERVICE: 10/01/2020 I am covering for Dr. Sauceda. This 85-year-old gentleman admitted with severe osteomyelitis of the right jaw and ass well as failure of outpatient treatment being closely monitored at this time. The patient has seen Infectious Disease specialist, Dr. Sheffield. The patient is on broad- spectrum IV antibiotics. ENT evaluation for possibly I&D and deep cultures also recommended by Dr. Sheffield. The patient closely monitored. PAST MEDICAL HISTORY: Reviewed. REVIEW OF SYSTEMS: ENT as mentioned earlier. Cardiovascular: No angina or palpitations. Respirations: As mentioned earlier. GI: As mentioned earlier. : No dysuria. NERVOUS SYSTEM: No focal deficits. CURRENT MEDICATIONS: Reviewed and include: Tylenol, Aspers, Xanax, Unasyn, Lipitor, vitamin D3, Flonase, folic acid, Neurontin. Dilaudid, Synthroid. Doses reviewed. Other medications reviewed. PHYSICAL EXAM: Patient is alert and oriented x2. Pulse 64. Blood pressure 105/60, respirations 17, temperature 97.4, pulse ox 98% on room air. HEENT: Conjunctivae normal. NECK: No jugular venous distention. Otherwise, significant erythema of the right jaw with some fluctuant mass also present. Cardiovascular system: S1, S2. Respiration: Clear to auscultation. ABDOMEN: Soft. Nontender. Nervous System: No focal deficits. LABS: WBC 4.2, hemoglobin 11.8. ASSESSMENT: 1. Acute osteomyelitis of the right jaw with possibly pointing abscess. 2. History of mandibular fracture. 3. History of squamous cell carcinoma of the tongue. 4. Hyperlipidemia. 5. Hypothyroidism. 6. Gastroesophageal reflux disease. 7. Cholecystectomy. 8. History of degenerative joint disease. 9. History of tonsillectomy. RECOMMENDATIONS AND DISCUSSION: I recommend to continue current medications, monitoring, medical management and symptomatic treatment. Otherwise ENT has been consulted. Infectious disease evaluation noted. The patient had osteomyelitis in the CT scan. Otherwise, guarded prognosis because of multiple complex medical issues. Further recommendations to follow. MMODL / IJN: [id number] /
[2020-10-02] MEDS: VANCOMYCIN 1,250 MG in SODIUM CHLORIDE 0.9% 250 ML IVPB SCH ×2 (00:12→18:08)
[2020-10-02] MEDS: AMPICILLIN-SULBACTAM 3 GM in SODIUM CHLORIDE 0.9% 100 ML IVPB SCH ×3 (04:52→18:11)
[2020-10-02] MEDS: LEVOTHYROXINE 50 MCG TAB PO SCH (04:54)
[2020-10-02] MEDS: PANTOPRAZOLE 40 MG TABLET PO SCH (07:32)
[2020-10-02] MEDS: PENTOXIFYLLINE 400 MG TABLET.ER PO SCH ×3 (07:32→18:08)
[2020-10-02] MEDS: GABAPENTIN 300 MG CAP PO SCH ×3 (09:02→22:13)
[2020-10-02] MEDS: CHOLECALCIFEROL 25 MCG (1000 IU) TABLET PO SCH (09:02)
[2020-10-02] MEDS: HEPARIN SODIUM,PORCINE/PF 5,000 UNIT/0.5 ML SYRINGE SQ SCH ×2 (09:03→22:10)
[2020-10-02] MEDS: THIAMINE 100 MG TAB PO SCH (11:51)
[2020-10-02] MEDS: MULTIVITAMINS, THERA 1 EACH TAB PO SCH (11:51)
[2020-10-02] MEDS: FOLIC ACID 1 MG TAB PO SCH (11:51)
--- NOTE | 2020-10-02 16:29 | PN ---
PROGRESS NOTE I am covering for Dr. Sauceda. DATE OF SERVICE: 10/02/2020 This 85-year-old gentleman who was admitted with acute osteomyelitis of the right jaw is being closely monitored at this time. Infectious disease and ENT evaluations are in progress. No chest pain. No palpitations. No fever. PHYSICAL EXAMINATION: Alert and oriented x3. Pulse 67, blood pressure 170/73, respiration 23, temperature 98.4, pulse ox 99% on room air. HEENT: Conjunctivae normal. NECK: No jugular venous distention. CARDIOVASCULAR SYSTEM: S1, S2 muffled. RESPIRATORY SYSTEM: Breath sounds diminished at the bases. No rhonchi. ABDOMEN: Soft, non-tender. EXAMINATION OF JAW: Right-sided painful jaw as well as swelling also present. LABS: WBC 4.6, hemoglobin 11.8. ASSESSMENT: 1. Acute osteomyelitis of the right jaw with possible pointing abscess. 2. History of mandibular fracture. 3. History of squamous cell carcinoma of the tongue. 4. Hyperlipidemia. 5. Hypothyroidism. 6. Gastroesophageal reflux disease. 7. Cholecystectomy. 8. History of degenerative joint disease. 9. History of tonsillectomy. RECOMMENDATIONS AND DISCUSSION: I recommend to continue current medications, continue symptomatic treatment. Otherwise, at this time I recommend continuing with antibiotics. Infectious disease and ENT evaluations. Guarded prognosis. Further recommendations to follow. Oral surgeon is also being consulted. MMODL / IJN: [id number] /
--- NOTE | 2020-10-02 18:19 | P.GSCN ---
History of Present Illness Consult date: 10/02/20 Reason for Consult: Jaw Swelling Requesting physician: Levi Guevara History of present illness: This is an 85-year-old male presents emergency Department with a history of squamous cell carcinoma to the tongue 16 years ago. Patient states about 6 years ago he started having issues with fractures of the jaw infection of the jaw. Patient states more recently he is having some significant redness to the right mid mandible and yesterday had a CAT scan showing good osteomyelitis. Patient was coming in to be admitted and to see Dr. Carvalho from infectious disease. states needs to have cultures of jaw to help direct therapy. is under treatment with Dr Vishal Knowles of [facility] and it was recommended to have Jaw resection and free flap reconstruction. They have rejected this therapy and prefer no treatment. Review of Systems Per HPI 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 History of Any Multi-Drug Resistant Organisms: None Reported Past Surgical History: Cholecystectomy, Orthopedic Surgery, Tonsillectomy Additional Past Surgical History / Comment(s): Cataract Past Psychological History: No Psychological Hx Reported Smoking Status: Former smoker Past Alcohol Use History: None Reported Past Drug Use History: None Reported - Past Family History Mother Family Medical History: Unable to Obtain Father Family Medical History: Unable to Obtain Medications and Allergies Home Medications Medication Instructions Recorded Confirmed Type Acetaminophen [Tylenol Extra 1,000 mg PO BID PRN 05/28/17 09/30/20 History Strength] Atorvastatin [Lipitor] 10 mg PO HS 05/28/17 09/30/20 History Cholecalciferol [Vitamin D3] 2,000 unit PO DAILY 05/28/17 09/30/20 History Levothyroxine Sodium [Synthroid] 50 mcg PO DAILY 05/28/17 09/30/20 History Fluticasone Nasal [place] [Flonase 2 spr EA NOSTRIL DAILY PRN 09/30/20 09/30/20 History Nasal [place]] Gabapentin [Neurontin] 300 mg PO TID 09/30/20 09/30/20 History Omeprazole Magnesium [PriLOSEC OTC] 20 mg PO DAILY PRN 09/30/20 09/30/20 History Pentoxifylline [TRENtal] 400 mg PO TID-W/MEALS 09/30/20 09/30/20 History Thera Tears 1 drop BOTH EYES TID PRN 09/30/20 09/30/20 History diphenhydrAMINE [Benadryl] 25 mg PO QID PRN 09/30/20 09/30/20 History levoFLOXacin 750 mg PO DAILY 09/30/20 09/30/20 History metroNIDAZOLE [Flagyl] 500 mg PO TID 09/30/20 09/30/20 History Allergies Allergy/AdvReac Type Severity Reaction Status Date / Time Sulfa (Sulfonamide Allergy Itching Verified 09/30/20 14:34 Antibiotics) Surgical - Exam Vital Signs Temp Pulse Resp BP Pulse Ox 98.9 F 83 20 122/70 100 09/30/20 12:14 09/30/20 12:14 09/30/20 12:14 09/30/20 12:14 09/30/20 12:14 1cm soft fluctuating swelling of right mandible. occlusion stable and repeatable. mouth opening limited. able to rise bony defect in the right mandible. Appears to be well cleaned and pustulant noted. Dry mouth obvious. Results - Labs 10/01/20 05:39 10/02/20 06:12 Microbiology - Last 24 Hours (Table) 09/30/20 13:35 Blood Culture - Preliminary Blood No Growth after 48 hours 09/30/20 13:19 Blood Culture - Preliminary Blood No Growth after 48 hours Diabetes panel 10/02/20 Range/Units 06:12 Creatinine 0.92 (0.66-1.25) mg/dL Pituitary panel 10/02/20 Range/Units 06:12 Creatinine 0.92 (0.66-1.25) mg/dL Adrenal panel 10/02/20 Range/Units 06:12 Creatinine 0.92 (0.66-1.25) mg/dL - Imaging Comments: Computed tomography scan of the face noted to have old callused fracture of the right mandible. Appears chronic in nature. Unclear as to whether it goes completely through the inferior border. Possibly greenstick. Assessment and Plan Assessment: Abscess/osteomyelitis of the right mandible. With associated soft tissue swelling contained to approximately 1 cm. Possible greenstick fracture of the right mandible appears chronic in nature and has been treated by Dr. Negro Knowles at [facility] Plan: Recommend culture of associated swelling and continued soft diet. Possible PICC line for IV antibiotic treatment in the future. Procedure performed at bedside with 18-gauge needle and 5 mL syringe extracted approximately 1 mL of bloody pus from the swelling after obtaining consent from her and . This was submitted and aerobic anaerobic culture tube verbal order to send for cultures. Time with Patient: Greater than 30 (Drainage with an 18-gauge needle.)
[2020-10-02] MEDS: ATORVASTATIN 10 MG TAB PO SCH (22:10)
[2020-10-03] MEDS: AMPICILLIN-SULBACTAM 3 GM in SODIUM CHLORIDE 0.9% 100 ML IVPB SCH ×5 (00:46→23:42)
--- NOTE | 2020-10-03 00:58 | PN ---
PROGRESS NOTE DATE OF SERVICE: 10/02/2020. REASON FOR FOLLOW UP: Right lower jaw abscess and osteomyelitis. INTERVAL HISTORY: The patient is currently afebrile. The patient has been evaluated by the oral surgeon with drainage of infected area. Culture has been obtained. Patient tolerated the procedure. No chest pain, shortness of breath or cough. No abdominal pain. No diarrhea. PHYSICAL EXAMINATION: Blood pressure 130/89 and pulse of 70. Temp 97.9. He is 100% on room air. General description: The patient is an elderly male up in the room in no distress. HEENT examination: Right lower jaw did have an area of swelling and redness. No drainage. LUNGS: Unlabored breathing. Clear to auscultation anteriorly. HEART: S1, S2. Regular rate and rhythm. ABDOMEN: Soft, no tenderness. LAB: Glucose 11.2, white count 4.07 and creatinine 0.92. Blood culture negative. DIAGNOSTIC IMPRESSION AND PLAN: Patient with right lower jaw osteomyelitis with mild area of abscess that has been drained. Culture has been obtained. The patient is covered with Unasyn and vancomycin. We will wait for the culture to finalize to determine his discharge antibiotics. Continue supportive care. MMODL / IJN: [id number] /
[2020-10-03] MEDS: LEVOTHYROXINE 50 MCG TAB PO SCH (05:45)
[2020-10-03 06:05] LABS: Basophils % (A) 0 %; Eosinophils # (A) 0.1 k/uL (0-0.7); Eosinophils % (A) 1 %; HCT 40.1 % (39.0-53.0); HGB 13.7 gm/dL (13.0-17.5); Lymphocytes # (A) 1.2 k/uL (1.0-4.8); Lymphocytes % (A) 23 %; MCH 32.8 pg (25.0-35.0); MCHC 34.2 g/dL (31.0-37.0); MCV 95.9 fL (80.0-100.0); Mean Platelet Volume 8.3; Monocytes # (A) 0.3 k/uL (0-1.0); Monocytes % (A) 6 %; Neutrophils # (A) 3.3 k/uL (1.3-7.7); Neutrophils % (A) 65 %; Platelet Count 228 k/uL (150-450); RBC 4.18 m/uL (4.30-5.90); RDW 13.7 % (11.5-15.5); WBC 5.2 k/uL (3.8-10.6)
[2020-10-03 06:18] LABS: African American GFR (CKD) 87 (>60 ml/min/1.73 sqM); Anion Gap 7 mmol/L; Blood Urea Nitrogen 13 mg/dL (9-20); Calcium 9.3 mg/dL (8.4-10.2); Carbon Dioxide 28 mmol/L (22-30); Chloride 104 mmol/L (98-107); Glucose 97 mg/dL (74-99); Non-African American GFR(CKD) 75 (>60 ml/min/1.73 sqM); Potassium 4.1 mmol/L (3.5-5.1); Sodium 139 mmol/L (137-145)
[2020-10-03] MEDS: GABAPENTIN 300 MG CAP PO SCH ×3 (08:35→22:03)
[2020-10-03] MEDS: PENTOXIFYLLINE 400 MG TABLET.ER PO SCH ×3 (08:35→17:49)
[2020-10-03] MEDS: HEPARIN SODIUM,PORCINE/PF 5,000 UNIT/0.5 ML SYRINGE SQ SCH ×2 (08:35→20:50)
[2020-10-03] MEDS: PANTOPRAZOLE 40 MG TABLET PO SCH (08:35)
[2020-10-03] MEDS: CHOLECALCIFEROL 25 MCG (1000 IU) TABLET PO SCH (08:35)
[2020-10-03] MEDS ORDERED: VANCOMYCIN TROUGH DUE 1 EACH MISC MISCELLANE ONE (11:00)
[2020-10-03] MEDS: VANCOMYCIN 1,250 MG in SODIUM CHLORIDE 0.9% 250 ML IVPB SCH (12:20)
[2020-10-03] MEDS: THIAMINE 100 MG TAB PO SCH (12:20)
[2020-10-03] MEDS: MULTIVITAMINS, THERA 1 EACH TAB PO SCH (12:21)
[2020-10-03] MEDS: FOLIC ACID 1 MG TAB PO SCH (12:21)
--- NOTE | 2020-10-03 18:14 | P.PN ---
Subjective Progress Note Date: 10/03/20 Principal diagnosis: Acute osteomyelitis of the right jaw This pleasant 85-year-old male has been being treated [facility] by Dr. Knowles who had recommended a bone resection and grafting with free flap reconstruction which he and his had declined that treatment, being aware that there was an infection present they opted to be treated with antibiotics. He had a computed tomography scan of the jaw which showed osteomyelitis despite being treated with oral antibiotics and Dr. Carvalho had recommended hospital admission for IV antibiotic treatment. He had oral surgery consult for obtaining a culture of the abscess for IV antibiotic therapy. He has been started on vancomycin and Unasyn to cover him until specific culture and sensitivity report is complete. He is sitting up at the bed this morning stating that the pain has improved he is able to tolerate soft foods and denies any difficulty with chewing, fever, chills, or sweats and remains in no acute di stress. Objective - Vital Signs Vital signs: Vital Signs Temp 98 F 10/03/20 11:53 Pulse 73 10/03/20 16:35 Resp 16 10/03/20 16:35 BP 119/65 10/03/20 11:53 Pulse Ox 100 10/03/20 11:53 Intake & Output 10/02/20 10/03/20 10/03/20 18:59 06:59 18:59 Intake Total 100 Output Total 500 Balance 100 -500 Intake: Intake, IV Titration 100 Amount Ampicillin-Sulbactam 3 gm 100 In Sodium Chloride 0.9% 100 ml @ 200 mls/hr IVPB Q6HR [facility] Rx#:[id number] Output: Urine 500 Other: Voiding Method Toilet Urinal # Voids 2 # Bowel Movements 0 - Constitutional General appearance: Present: average body habitus, cooperative, no acute distress - EENT ENT: Present: hearing grossly normal Ears: bilateral: normal - Respiratory Respiratory: bilateral: CTA - Cardiovascular Rhythm: regular Heart sounds: normal: S1, S2 - Gastrointestinal General gastrointestinal: Present: normal bowel sounds, soft - Integumentary Integumentary Comment(s): Right lower jaw with reddened edematous area - Neurologic Neurologic: Present: CNII-XII intact - Psychiatric Psychiatric: Present: A&O x's 3, appropriate affect, intact judgment & insight - Labs CBC & Chem 7: 10/03/20 05:48 10/03/20 05:48 Labs: Abnormal Lab Results - Last 24 Hours (Table) 10/03/20 Range/Units 05:48 RBC 4.18 L (4.30-5.90) m/uL Microbiology - Last 24 Hours (Table) 09/30/20 13:35 Blood Culture - Preliminary Blood No Growth after 72 hours 09/30/20 13:19 Blood Culture - Preliminary Blood No Growth after 72 hours 10/02/20 17:45 Gram Stain - Preliminary Face Wound Culture - Preliminary 10/02/20 17:45 Anaerobic Culture - Preliminary Face Assessment and Plan Assessment: Acute osteomyelitis of the right jaw History of mandibular fracture 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
[2020-10-03] MEDS: ATORVASTATIN 10 MG TAB PO SCH (20:50)
[2020-10-04] MEDS: AMPICILLIN-SULBACTAM 3 GM in SODIUM CHLORIDE 0.9% 100 ML IVPB SCH ×4 (06:14→23:04)
[2020-10-04] MEDS: LEVOTHYROXINE 50 MCG TAB PO SCH (06:19)
[2020-10-04] MEDS: VANCOMYCIN 1,250 MG in SODIUM CHLORIDE 0.9% 250 ML IVPB SCH (06:51)
--- NOTE | 2020-10-04 07:06 | PN ---
PROGRESS NOTE DATE OF SERVICE: 10/03/2020 REASON FOR FOLLOW UP: Right lower jaw abscess and osteomyelitis. INTERVAL HISTORY: The patient is currently afebrile. The patient is breathing comfortably. Overall pain and discomfort to the right jaw area has decreased. Denies any chest pain. No cough. No abdominal pain. No diarrhea. PHYSICAL EXAMINATION: Blood pressure 123/74 with a pulse of 77, temperature 98.7. He is 95% on room air. General description is an elderly male up in the bed in no distress. HEENT examination right lower jaw area is slightly decrease in swelling and redness. Lungs unlabored breathing, clear to auscultation anteriorly. Heart S1, S2. Regular rate and rhythm. ABDOMEN: Soft, no tenderness. LABS: Hemoglobin 13.5, white count 5.2, BUN of 13, creatinine 0.93. DIAGNOSTIC IMPRESSION AND PLAN: Patient with right lower jaw abscess and underlying osteomyelitis, status post I&D. Cultures are currently pending. Patient to continue Unasyn and vancomycin discharge. Discharge antibiotics based on culture report. Continue supportive care. MMODL / IJN: [id number] /
[2020-10-04 08:02] LABS: Basophils % (A) 0 %; Eosinophils # (A) 0.1 k/uL (0-0.7); Eosinophils % (A) 1 %; HCT 34.5 % (39.0-53.0); HGB 12.2 gm/dL (13.0-17.5); Lymphocytes # (A) 1.3 k/uL (1.0-4.8); Lymphocytes % (A) 22 %; MCHC 35.4 g/dL (31.0-37.0); MCV 96.1 fL (80.0-100.0); Monocytes # (A) 0.3 k/uL (0-1.0); Monocytes % (A) 5 %; Neutrophils % (A) 67 %; Platelet Count 216 k/uL (150-450); RBC 3.59 m/uL (4.30-5.90); RDW 13.7 % (11.5-15.5)
[2020-10-04 08:08] LABS: ALT 9 U/L (4-49); AST 19 U/L (17-59); African American GFR (CKD) 81 (>60 ml/min/1.73 sqM); Albumin 3.3 g/dL (3.5-5.0); Albumin/Globulin Ratio 1.3; Alkaline Phosphatase 65 U/L (38-126); Anion Gap 4 mmol/L; Blood Urea Nitrogen 13 mg/dL (9-20); Calcium 9.1 mg/dL (8.4-10.2); Carbon Dioxide 30 mmol/L (22-30); Chloride 104 mmol/L (98-107); Globulin 2.6 g/dL; Glucose 97 mg/dL (74-99); Magnesium 1.8 mg/dL (1.6-2.3); Non-African American GFR(CKD) 70 (>60 ml/min/1.73 sqM); Potassium 4.1 mmol/L (3.5-5.1); Sodium 138 mmol/L (137-145); Total Bilirubin 0.4 mg/dL (0.2-1.3); Total Protein 5.9 g/dL (6.3-8.2)
[2020-10-04] MEDS: HEPARIN SODIUM,PORCINE/PF 5,000 UNIT/0.5 ML SYRINGE SQ SCH ×2 (08:39→20:23)
[2020-10-04] MEDS: CHOLECALCIFEROL 25 MCG (1000 IU) TABLET PO SCH (08:39)
[2020-10-04] MEDS: PANTOPRAZOLE 40 MG TABLET PO SCH (08:40)
[2020-10-04] MEDS: GABAPENTIN 300 MG CAP PO SCH ×3 (08:40→20:23)
[2020-10-04] MEDS: PENTOXIFYLLINE 400 MG TABLET.ER PO SCH ×3 (08:40→16:41)
--- NOTE | 2020-10-04 09:08 | P.PN ---
Subjective Progress Note Date: 10/04/20 Principal diagnosis: Acute osteomyelitis of the right jaw This pleasant 85-year-old male has been being treated [facility] by Dr. Knowles who had recommended a bone resection and grafting with free flap reconstruction which he and his had declined that treatment, being aware that there was an infection present they opted to be treated with antibiotics. He had a computed tomography scan of the jaw which showed osteomyelitis despite being treated with oral antibiotics and Dr. Carvalho had recommended hospital admission for IV antibiotic treatment. He had oral surgery consult for obtaining a culture of the abscess for IV antibiotic therapy. He has been started on vancomycin and Unasyn to cover him until specific culture and sensitivity report is complete. He is resting comfortably in bed with his eyes closed, respirations even, unlabored in no acute distress, reports no fever, chills, shortness of breath, nausea, vomiting, or diarrhea. Will consider dis charge with oral antibiotics after culture and sensitivity with recommendation from Dr. Sheffield. Objective - Vital Signs Vital signs: Vital Signs Temp 97.9 F 10/04/20 04:40 Pulse 93 10/04/20 04:40 Resp 16 10/04/20 04:40 BP 109/61 10/04/20 04:40 Pulse Ox 98 10/04/20 04:40 Intake & Output 10/03/20 10/04/20 10/04/20 18:59 06:59 18:59 Intake Total 1040 Output Total 500 Balance -500 1040 Intake: Oral 1040 Output: Urine 500 Other: Voiding Method Toilet Toilet Urinal Urinal # Voids 0 - Constitutional General appearance: Present: average body habitus, cooperative, no acute distress - EENT Ears: bilateral: normal - Respiratory Respiratory: bilateral: CTA - Cardiovascular Rhythm: regular Heart sounds: normal: S1, S2 - Gastrointestinal General gastrointestinal: Present: normal bowel sounds, soft - Integumentary Integumentary Comment(s): lower right jaw edema - Neurologic Neurologic: Present: CNII-XII intact - Psychiatric Psychiatric: Present: A&O x's 3, appropriate affect, intact judgment & insight - Labs CBC & Chem 7: 10/04/20 06:09 10/04/20 06:09 Labs: Abnormal Lab Results - Last 24 Hours (Table) 10/04/20 10/04/20 Range/Units 06:09 06:09 RBC 3.59 L (4.30-5.90) m/uL Hgb 12.2 L (13.0-17.5) gm/dL Hct 34.5 L (39.0-53.0) % Total Protein 5.9 L (6.3-8.2) g/dL Albumin 3.3 L (3.5-5.0) g/dL Microbiology - Last 24 Hours (Table) 10/02/20 17:45 Gram Stain - Preliminary Face Wound Culture - Preliminary 09/30/20 13:35 Blood Culture - Preliminary Blood No Growth after 72 hours 09/30/20 13:19 Blood Culture - Preliminary Blood No Growth after 72 hours Assessment and Plan Assessment: Acute osteomyelitis of the right jaw History of mandibular fracture 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 Hyperlipidemia Hypothyroidism Gastroesophageal reflux disease History of cholecystectomy History of degenerative joint disease History of tonsillectomy (1) Osteomyelitis of mandible Current Visit: Yes Status: Acute Code(s): M27.2 - INFLAMMATORY CONDITIONS OF JAWS SNOMED Code(s): 390402454 Plan: Continue medications as prescribed Continue consultation of infectious disease for further recommendations and plan Awaiting culture sensitivity of abscess sample continue IV vancomycin and Unasyn as prescribed Continue with oral surgery consult as needed for intervention, treatment, and plan Plan for discharge with oral antibiotics per Dr. Sheffield's recommendation after return of c & s of wound culture
[2020-10-04] MEDS: MULTIVITAMINS, THERA 1 EACH TAB PO SCH (12:00)
[2020-10-04] MEDS: THIAMINE 100 MG TAB PO SCH (12:00)
[2020-10-04] MEDS: FOLIC ACID 1 MG TAB PO SCH (12:00)
[2020-10-04] MEDS: ATORVASTATIN 10 MG TAB PO SCH (20:23)
[2020-10-04 20:42] VITALS: RESP 16
--- NOTE | 2020-10-04 23:13 | PN ---
PROGRESS NOTE DATE OF SERVICE: 10/04/2020 REASON FOR FOLLOWUP: Right lower jaw osteomyelitis and abscess. INTERVAL HISTORY: Patient is currently afebrile. The patient overall pain and discomfort to the right lower jaw has improved. Denies any chest pain, shortness of breath or cough. No abdominal pain. No diarrhea. PHYSICAL EXAMINATION: Blood pressure 152/82 with a pulse of 83, temperature 98.3. He is 99% on room air. General description: The patient is an elderly male up in the room in no distress. Respiratory system: Unlabored breathing, clear to auscultation anteriorly. Heart S1, S2. Regular rate and rhythm. Abdomen soft, no tenderness. Right lower jaw swelling has decreased. LABS: Hemoglobin is 12.2 with white count 6.0, BUN of 13, creatinine 0.99. DIAGNOSTIC IMPRESSION AND PLAN: Patient with right lower jaw abscess and underlying osteomyelitis, failing outpatient Levaquin therapy. However culture has been negative for resistant pathogen. Plan is for Rocephin 2 grams daily through PICC line along with oral Flagyl for 6 weeks. Continue supportive care. MMODL / IJN: [id number] /
[2020-10-05] MEDS: VANCOMYCIN 1,250 MG in SODIUM CHLORIDE 0.9% 250 ML IVPB SCH (00:30)
[2020-10-05 05:29] LABS: Basophils % (A) 0 %; Eosinophils # (A) 0.1 k/uL (0-0.7); Eosinophils % (A) 1 %; HCT 35.7 % (39.0-53.0); HGB 12.4 gm/dL (13.0-17.5); Lymphocytes # (A) 1.7 k/uL (1.0-4.8); Lymphocytes % (A) 28 %; MCH 33.5 pg (25.0-35.0); MCHC 34.8 g/dL (31.0-37.0); MCV 96.4 fL (80.0-100.0); Mean Platelet Volume 8.1; Monocytes # (A) 0.4 k/uL (0-1.0); Monocytes % (A) 7 %; Neutrophils # (A) 3.5 k/uL (1.3-7.7); Neutrophils % (A) 60 %; Platelet Count 235 k/uL (150-450); RDW 13.8 % (11.5-15.5); WBC 5.9 k/uL (3.8-10.6)
[2020-10-05 05:43] LABS: African American GFR (CKD) 71 (>60 ml/min/1.73 sqM); Anion Gap 5 mmol/L; Blood Urea Nitrogen 15 mg/dL (9-20); Calcium 9.2 mg/dL (8.4-10.2); Carbon Dioxide 30 mmol/L (22-30); Chloride 103 mmol/L (98-107); Glucose 91 mg/dL (74-99); Non-African American GFR(CKD) 61 (>60 ml/min/1.73 sqM); Potassium 4.3 mmol/L (3.5-5.1); Sodium 138 mmol/L (137-145)
[2020-10-05] MEDS: LEVOTHYROXINE 50 MCG TAB PO SCH (06:19)
[2020-10-05] MEDS: AMPICILLIN-SULBACTAM 3 GM in SODIUM CHLORIDE 0.9% 100 ML IVPB SCH ×2 (06:20→12:44)
[2020-10-05] MEDS: HEPARIN SODIUM,PORCINE/PF 5,000 UNIT/0.5 ML SYRINGE SQ SCH (08:39)
--- NOTE | 2020-10-05 09:32 | P.PN ---
Subjective Progress Note Date: 10/05/20 Principal diagnosis: Acute osteomyelitis of the right jaw This pleasant 85-year-old male has been being treated [facility] by Dr. Knowles who had recommended a bone resection and grafting with free flap reconstruction which he and his had declined that treatment, being aware that there was an infection present they opted to be treated with antibiotics. He had a computed tomography scan of the jaw which showed osteomyelitis despite being treated with oral antibiotics and Dr. Carvalho had recommended hospital admission for IV antibiotic treatment. He had oral surgery consult for obtaining a culture of the abscess for IV antibiotic therapy. He has been start ed on vancomycin and Unasyn to cover him until specific culture and sensitivity report is complete. He is resting comfortably in bed with his eyes closed, respirations even, unlabored in no acute distress, reports no fever, chills, shortness of breath, nausea, vomiting, or diarrhea. Will consider discharge with oral antibiotics after culture and sensitivity with recommendation from Dr. Sheffield. 10/05/2020 Evaluated patient this a.m. him a resting comfortably in bed. Patient denies fever, chills, shortness of breath, shortness of breath exertion, chest pain, palpitations, abdominal pain, nausea, vomiting or diarrhea. Patient continues to require IV vancomycin and Unasyn for osteomyelitis of the right jawinfectious disease following for recommendations of Home antibiotics of Rocephin and Cipro. Diagnostic testing reviewed. Waiting for clearance from infectious disease to sent home with PICC line with IV antibiotics and [facility] home care to assist with multiple comorbidities with right jaw osteomyelitis Objective - Vital Signs Vital signs: Vital Signs Temp 97.6 F 10/05/20 05:00 Pulse 61 10/05/20 05:00 Resp 16 10/05/20 05:00 BP 101/65 10/05/20 05:00 Pulse Ox 99 10/05/20 05:00 Intake & Output 10/04/20 10/05/20 10/05/20 18:59 06:59 18:59 Intake Total 590 Output Total 1585 1400 Balance -1585 -810 Intake: Oral 590 Output: Urine 1585 1400 Other: Voiding Method Toilet Toilet Urinal Urinal - Constitutional General appearance: Present: cooperative - EENT Eyes: Present: EOMI, PERRLA Ears: bilateral: normal - Neck Carotids: bilateral: upstroke normal Thyroid: bilateral: normal size - Respiratory Respiratory: bilateral: CTA - Cardiovascular Details: Normal sinus rhythm Heart rate: 74 Rhythm: regular Heart sounds: normal: S1, S2 - Peripheral pulses radial pulse Peripheral Pulses: bilateral: Normal dorsalis pedis Peripheral Pulses: bilateral: Normal - Gastrointestinal General gastrointestinal: Present: normal bowel sounds - Integumentary Integumentary: Present: decreased turgor, pale - Musculoskeletal Musculoskeletal: Present: generalized weakness - Psychiatric Psychiatric: Present: A&O x's 3, appropriate affect, intact judgment & insight - Allied health notes Allied health notes reviewed: nursing - Labs CBC & Chem 7: 10/05/20 04:55 10/05/20 04:55 Labs: Abnormal Lab Results - Last 24 Hours (Table) 10/05/20 Range/Units 04:55 RBC 3.70 L (4.30-5.90) m/uL Hgb 12.4 L (13.0-17.5) gm/dL Hct 35.7 L (39.0-53.0) % Microbiology - Last 24 Hours (Table) 10/02/20 17:45 Anaerobic Culture - Preliminary Face 10/02/20 17:45 Gram Stain - Final Face Wound Culture - Final 09/30/20 13:19 Blood Culture - Preliminary Blood No Growth after 96 hours 09/30/20 13:35 Blood Culture - Preliminary Blood No Growth after 96 hours Assessment and Plan Assessment: Acute osteomyelitis of the right jaw History of mandibular fracture 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
[2020-10-05] MEDS: GABAPENTIN 300 MG CAP PO SCH ×2 (09:34→16:08)
[2020-10-05] MEDS: PANTOPRAZOLE 40 MG TABLET PO SCH (09:34)
[2020-10-05] MEDS: PENTOXIFYLLINE 400 MG TABLET.ER PO SCH ×3 (09:34→16:08)
[2020-10-05] MEDS: MULTIVITAMINS, THERA 1 EACH TAB PO SCH (09:34)
[2020-10-05] MEDS: CHOLECALCIFEROL 25 MCG (1000 IU) TABLET PO SCH (09:34)
[2020-10-05] MEDS: THIAMINE 100 MG TAB PO SCH (09:34)
[2020-10-05] MEDS: FOLIC ACID 1 MG TAB PO SCH (09:34)
[2020-10-05 09:38] LABS: INR 0.9 (<1.2); Partial Thromboplastin Time 22.4 sec (22.0-30.0); Prothrombin Time 9.6 sec (9.0-12.0)
[2020-10-05 09:43] LABS: Erythrocyte Sedimentation Rate 35 mm/hr (0-15)
[2020-10-05] MEDS ORDERED: LACTATED RINGERS 1,000 ML IV SCH (09:45)
[2020-10-05 11:48] VITALS: BP 127/72; PULSE 75; TEMP 97.5
[2020-10-05] MEDS ORDERED: LIDOCAINE 1% INJ 10MG/ML (20 ML MDV) SQ ONE (12:06)
--- NOTE | 2020-10-05 12:46 | IR ---
PICC LINE PLACEMENT: HISTORY: Infection requiring long-term antibiotic therapy PROCEDURE: Ultrasound and fluoroscopic guidance of PICC line placement. COMPLICATIONS: None ANESTHESIA: 1. 1% Lidocaine locally. FINDINGS/TECHNIQUE: The procedure was explained to the patient. The risks, complications, benefits and alternatives were discussed and any questions were answered. Informed consent was obtained. The patient was placed supine on the fluoroscopic table and prepped and draped in the usual sterile fash ion. Utilizing a 21 gauge needle and sonographic and fluoroscopic guidance, access in the left basi lic vein was achieved and there is placement of a 0.018 guidewire. The vein is patent. A 4-F sheath was placed over the guidewire. The guidewire and dilator were removed and a 4-F. PICC line was plac ed through the sheath with the tip at the level of the SVC. The sheath was removed, the catheter was flushed and sutured into position. The patient was stable throughout the procedure and remained sta ble upon discharge from the Department of Radiology. The vein puncture was patent under ultrasound. A fountain scale image was obtained to document patency of the vein punctured. All elements of the maximal barrier technique were utilized. FLUOROSCOPY TIME: 0.3 minutes and one images submitted IMPRESSION: Successful PICC line placement under ultrasound and fluoroscopic guidance.
[2020-10-05 13:47] VITALS: BMI 26.7
--- NOTE | 2020-10-05 18:01 | P.DS ---
Providers Date of admission: 09/30/20 14:28 Expected date of discharge: 10/05/20 Attending physician: Irvin Sauceda Consults: 09/30/20 14:28 Consult Physician Urgent Consulting Provider: Nikki Sheffield Consult Reason/Comments: Osteomyelitis of the mandible Do you want consulting provider notified?: Yes 09/30/20 18:26 Consult Physician Urgent Consulting Provider: Sriram Ramsey Consult Reason/Comments: SWELLING RIGHT SIDE OF FACE Do you want consulting provider notified?: Yes 10/02/20 13:37 Consult Physician Urgent Consulting Provider: Chucho Bassett Consult Reason/Comments: Osteomyelitis of the mandible Do you want consulting provider notified?: Already Contacted Primary care physician: Irvin Sauceda Hospital Course: 85-year-old male who has been undercare of treatment from the [facility] by Dr. Knowles who had recommended bone resection and grafting with the free flap contractions which he and his had declined treatment. He had his aware that there was an infection present they opted to treat with antibiotics. He recently had a CAT scan of the jaw that showed osteomyelitis despite being treated with oral antibiotics. Dr. Carvalho had recommended hospital admission for IV antibiotic treatment. oral surgery was consulted for obtaining culture of the abscess during hospital admission he received vancomycin and Unasyn IV. He received 5 day course of vancomycin and Unasynfor osteomyelitis of right jaw patient tolerated treatment well. Patient had PICC line placed today for outpatient antibiotic therapy of Rocephin IV piggyback for 21 days and Flagyl by mouth 3 times a day for 21 days. Patient will have [facility] care to assist with the complexity of IV antibiotics and care PICC line. 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 Hyperlipidemia Hypothyroidism GERD/reflux History of cholecystectomy Degenerative joint disease History of tonsillectomy Full code Health Concerns: Complexity of antibiotic therapy for right jaw osteomyelitis Pertinent Studies: None performed Procedures: PICC line placement Patient Condition at Discharge: Fair Plan - Discharge Summary Discharge Rx Participant: Yes New Discharge Prescriptions: New cefTRIAXone [Rocephin] 2,000 mg IVP Q24HR #42 vial Continue Levothyroxine Sodium [Synthroid] 50 mcg PO DAILY Cholecalciferol [Vitamin D3 (25 Mcg = 1000 Iu)] 2,000 unit PO DAILY Atorvastatin [Lipitor] 10 mg PO HS Acetaminophen [Tylenol Extra Strength] 1,000 mg PO BID PRN PRN Reason: Pain diphenhydrAMINE [Benadryl] 25 mg PO QID PRN PRN Reason: Allergy Symptoms Omeprazole Magnesium [PriLOSEC OTC] 20 mg PO DAILY PRN PRN Reason: GERDS Gabapentin [Neurontin] 300 mg PO TID Fluticasone Nasal [place] [Flonase Nasal [place]] 2 spr EA NOSTRIL DAILY PRN PRN Reason: Allergy Symptoms Pentoxifylline [TRENtal] 400 mg PO TID-W/MEALS Thera Tears 1 drop BOTH EYES TID PRN PRN Reason: DRY EYES metroNIDAZOLE [Flagyl] 500 mg PO TID 21 Days #126 tab Discontinued levoFLOXacin 750 mg PO DAILY Discharge Medication List Acetaminophen [Tylenol Extra Strength] 1,000 mg PO BID PRN 05/28/17 [History] Atorvastatin [Lipitor] 10 mg PO HS 05/28/17 [History] Cholecalciferol [Vitamin D3 (25 Mcg = 1000 Iu)] 2,000 unit PO DAILY 05/28/17 [History] Levothyroxine Sodium [Synthroid] 50 mcg PO DAILY 05/28/17 [History] Fluticasone Nasal [place] [Flonase Nasal [place]] 2 spr EA NOSTRIL DAILY PRN 09/30/20 [History] Gabapentin [Neurontin] 300 mg PO TID 09/30/20 [History] Omeprazole Magnesium [PriLOSEC OTC] 20 mg PO DAILY PRN 09/30/20 [History] Pentoxifylline [TRENtal] 400 mg PO TID-W/MEALS 09/30/20 [History] Thera Tears 1 drop BOTH EYES TID PRN 09/30/20 [History] diphenhydrAMINE [Benadryl] 25 mg PO QID PRN 09/30/20 [History] cefTRIAXone [Rocephin] 2,000 mg IVP Q24HR #42 vial 10/05/20 [Rx] metroNIDAZOLE [Flagyl] 500 mg PO TID 21 Days #126 tab 10/05/20 [Rx] Follow up Appointment(s)/Referral(s): Irvin Sauceda MD [Primary Care Provider] - 10/09/20 10:00 am [facility], [NON-STAFF] - 1 Week [facility],Infusion [NON-STAFF] - 1 Week Nikki Sheffield MD [STAFF PHYSICIAN] - 10/23/20 1:15 pm Ambulatory/Diagnostic Orders: Basic Metabolic Panel [LAB.AMB] Location: None Selected C Reactive Protein [LAB.AMB] Location: None Selected Complete Blood Count w/diff [LAB.AMB] Location: None Selected Erythrocyte Sedimentation Rate [LAB.AMB] Location: None Selected Patient Instructions/Handouts: Metronidazole (By mouth), Ceftriaxone (By injection), Osteomyelitis (DC) Activity/Diet/Wound Care/Special Instructions: diet as tolerated Activity limited until seen by DrBrendan Cardenas Disposition: HOME WITH HOME HEALTH SERVICES
--- NOTE | 2020-10-05 19:51 | PN ---
PROGRESS NOTE DATE OF SERVICE: 10/05/2020 REASON FOR FOLLOWUP: Right lower jaw abscess and osteomyelitis. INTERVAL HISTORY: The patient is currently afebrile. The patient is feeling better, breathing comfortably. Overall pain and discomfort to the right lower jaw has slightly decreased. No chest pain, no cough. No abdominal pain or diarrhea. PHYSICAL EXAMINATION: Blood pressure 127/72 with a pulse of 75, temperature 97.5. He is 99% on room air. General description is an elderly male up in the room in no distress. HEENT EXAMINATION: Right lower jaw swelling and redness have decreased. LUNGS: Unlabored breathing. Clear to auscultation anteriorly. HEART: S1, S2. Regular rate and rhythm. ABDOMEN: Soft. No tenderness. LABS: Cultures remain negative. DIAGNOSTIC IMPRESSION AND PLAN: Patient with right lower jaw abscess and osteomyelitis. Culture has been negative for any resistant pathogen. Antibiotic adjusted to Rocephin 2 grams daily along with oral Flagyl to continue for 6 weeks and close outpatient followup. MMODL / IJN: [id number] /
== END 2020-10-05 18:00 | disposition home health service (06) | DRG 158 ==
LOC: EC 12:03 → 5NMEDONC 14:28
PROVIDERS: ADMIT Family Medicine; ATTEND Family Medicine
PROC: B548ZZA Ultrasonography of Superior Vena Cava, Guidance (ICD-10-PCS; 2020-10-05)
PROC: 02HV33Z Insertion of Infusion Device into Superior Vena Cava, Percutaneous Approach (ICD-10-PCS; principal; 2020-10-05 07:30)
DX: M27.2 Inflammatory conditions of jaws (principal); M84.48XA Pathological fracture, other site, initial encounter for fracture; Z79.82 Long term (current) use of aspirin; Z79.890 Hormone replacement therapy; Z20.822 Contact with and (suspected) exposure to COVID-19; K21.9 Gastro-esophageal reflux disease without esophagitis; M19.90 Unspecified osteoarthritis, unspecified site; E78.5 Hyperlipidemia, unspecified; Z85.810 Personal history of malignant neoplasm of tongue; E03.9 Hypothyroidism, unspecified; Z90.49 Acquired absence of other specified parts of digestive tract; Z87.891 Personal history of nicotine dependence; Z92.3 Personal history of irradiation; Z92.21 Personal history of antineoplastic chemotherapy; M84.48XS Pathological fracture, other site, sequela
CPT/HCPCS: 36415; 36573; 70486; 80048; 80053; 80202; 81001; 82565; 83605; 83735; 84145; 85025; 85610; 85652; 85730; 86140; 87040; 87070; 87075; 87205; 87635; 93005; 94760; 96374; 99285

== ENCOUNTER → 2020-10-09 | Outpatient (CLI) | payer MEDICARE, OTHER ==
[2020-10-09 19:27] LABS: African American GFR (CKD) 79.7 (60.0-200.0); Albumin 4.2 g/dL (3.80-4.90); Albumin/Globulin Ratio 1.83 (1.60-3.17); Anion Gap 8.1 mmol/L (4.00-12.00); C Reactive Protein 1.2 mg/dL (0.0-0.8); Calcium 9.6 mg/dL (8.7-10.3); Carbon Dioxide 27.9 mmol/L (21.6-31.8); Globulin 2.3 g/dL (1.6-3.3); Non-African American GFR(CKD) 68.8 (60.0-200.0); Potassium 4.3 mmol/L (3.5-5.5); Total Bilirubin 0.3 mg/dL (0.3-1.2); Total Protein 6.5 g/dL (6.2-8.2)
== END | disposition home or self-care (01) ==
LOC: LABWHC1 11:27
PROVIDERS: ATTEND Nurse Practitioner
DX: M86.9 Osteomyelitis, unspecified (principal); R19.7 Diarrhea, unspecified
CPT/HCPCS: 36415; 80053; 84145; 85027; 85652; 86140; 87328; 87329

== ENCOUNTER → 2020-11-02 | Outpatient (CLI) | payer MEDICARE, OTHER ==
--- NOTE | 2020-11-03 04:49 | CT ---
EXAMINATION TYPE: CT facial bones w con DATE OF EXAM: 11/02/2020 COMPARISON: September 29, 2020 HISTORY: h/o facial osteomyelitis CT DLP: 448.7 mGycm Automated exposure control for dose reduction was used. CONTRAST: Performed with IV Contrast, patient injected with 100ml mL of Isovue 300. Images were obtained from the bottom of the mandible to the mid orbits with IV contrast. There is fracture of the right hemimandible anterior to the angle. There are destructive changes on b oth sides of the fracture. Destructive changes extend into the coronoid process and also into the man dibular condyle. There is subcutaneous edema anterior to the right mandible. There is metal artifact from the fillings in the upper jaw. There is thickening of the angle of the left hemimandible consist ent with healing fracture. There is some cortical destruction at the anterior aspect of the angle of the left hemimandible. This area measures 9 mm. The mandibular condyles are intact. The maxilla is in tact. There is some mucosal thickening in the maxillary sinuses. There is narrowing of the C3-4 disc space with spur formation. Visualized prevertebral soft tissues a re intact. The tongue is intact. There is mild thickening of the posterior soft palate. There is slig ht thickening also of the epiglottis. IMPRESSION: Bilateral mandibular fractures. There are destructive changes seen bilaterally at the fracture sites and much more on the right side and would be consistent with osteomyelitis. This appears similar to o ld exam. There is some maxillary sinusitis unchanged. There is soft tissue swelling anterior to the r ight mandible consistent with cellulitis. Unchanged. Mild thickening of the soft palate and also the epiglottis. I do not suspect think that there is epig lottitis however.
== END | disposition home or self-care (01) ==
LOC: RADCTMAIN 07:24
PROVIDERS: ATTEND Internal Medicine Infectious Disease
DX: M86.9 Osteomyelitis, unspecified (principal); J32.0 Chronic maxillary sinusitis
CPT/HCPCS: 70487; Q9967

== ENCOUNTER → 2021-01-17 | Outpatient (CLI) | payer MEDICARE, OTHER ==
--- NOTE | 2021-01-17 15:53 | CT ---
EXAMINATION TYPE: CT facial bones w con DATE OF EXAM: 01/17/2021 COMPARISON: 03/05/2021 HISTORY: RT side inflammatory condition of jaw. CT DLP: 648.70 mGycm Automated exposure control for dose reduction was used. CONTRAST: CT scan of the facial bones is performed with IV Contrast, patient injected with 100 mL of Isovue 300 . TECHNIQUE: CT scan of the sinuses is performed without contrast, axial images are obtained, coronal r eformatted images are also reviewed. FINDINGS: There is persistent bony destructive process involving the right mandible without significa nt interval change. There is a pathologic fracture noted. Stable destructive process is also noted of the left hemimandible smaller in size and now the right sided counterpart also compatible with osteo myelitis. I do not see evidence for associated fracture. No new areas of osteomyelitis are seen. Maxi lla is intact. Severe degenerative change involving the cervical spine noted. Chronic maxillary sinus itis. IMPRESSION: No significant change in bilateral lower right greater than left mandibular osteomyelitis with pathologic fracture noted on the right.
== END | disposition home or self-care (01) ==
LOC: RADCTMAIN 14:21
PROVIDERS: ATTEND Internal Medicine Infectious Disease
DX: M27.2 Inflammatory conditions of jaws (principal); M84.48XA Pathological fracture, other site, initial encounter for fracture
CPT/HCPCS: 82565; 84520; 70487; 36415; Q9967

== ENCOUNTER → 2021-02-06 | Outpatient (CLI) | payer MEDICARE, OTHER ==
--- NOTE | 2021-02-06 14:58 | CT ---
EXAMINATION TYPE: CT sinus wo con DATE OF EXAM: 02/06/2021 COMPARISON: 01/17/2021 HISTORY: Chronic sinusitis CT DLP: 440.7 mGycm CONTRAST: 0 mL of Isovue 300 The paranasal sinuses are examined in the axial plane at 2 mm thick sections. Reconstructed images i n the coronal plane were obtained. There is dental amalgam scatter artifact Small partial septations are in the inferior maxillary sinuses bilaterally. Small retention cysts are adjacent The ethmoid air cells are clear. The sphenoid sinuses are clear. The frontal sinuses are clear. Note is made of a large right Mykel air cell without obstruction The septum is evaluated. There is septal deviation to the left. The ostiomeatal units are patent. IMPRESSIONS: 1. Small retention cysts adjacent to inferior maxillary sinus partial septations. 2. Left septal deviation. 3. Large right Mykel air cell without obstruction.
== END | disposition home or self-care (01) ==
LOC: RADCTMAIN 13:13
PROVIDERS: ATTEND Otolaryngology
DX: J34.2 Deviated nasal septum (principal); J32.9 Chronic sinusitis, unspecified
CPT/HCPCS: 70486

== ENCOUNTER → 2021-02-16 | Outpatient (CLI) | payer MEDICARE, OTHER ==
[2021-02-16 23:36] LABS: Basophils # (A) 0.01 X 10*3/uL (0.00-0.10); Basophils % (A) 0.2 %; Eosinophils # (A) 0.08 X 10*3/uL (0.04-0.35); Eosinophils % (A) 1.5 %; HCT 39.4 % (39.6-50.0); Lymphocytes # (A) 1.72 X 10*3/uL (0.90-5.00); MCH 32.3 pg (27.0-32.0); Mean Platelet Volume 10.7 fL (9.5-12.2); Monocytes # (A) 0.48 X 10*3/uL (0.20-1.00); Monocytes % (A) 9.2 %; Neutrophils # (A) 2.92 X 10*3/uL (1.80-7.70); Neutrophils % (A) 55.9 %; Platelet Count 200 X 10*3/uL (140-440); RBC 4.02 X 10*6/uL (4.40-5.60); RDW 13.3 % (11.5-14.5); WBC 5.22 X 10*3/uL (4.50-10.00)
[2021-02-17 01:24] LABS: Erythrocyte Sedimentation Rate 29 mm/Hr (0-20)
[2021-02-17 04:42] LABS: ALT 17 U/L (10-49); AST 17 U/L (14-35); African American GFR (CKD) 70.6 (60.0-200.0); Albumin/Globulin Ratio 1.69 (1.60-3.17); Alkaline Phosphatase 79 U/L (41-126); BUN/Creat Ratio 20.91 Ratio (12.00-20.00); C Reactive Protein <0.4 mg/dL (0.0-0.8); Calcium 9.6 mg/dL (8.7-10.3); Carbon Dioxide 28.9 mmol/L (21.6-31.8); Chloride 105 mmol/L (96-109); Globulin 2.6 g/dL (1.6-3.3); Glucose 135 mg/dL (70-110); Non-African American GFR(CKD) 60.9 (60.0-200.0); Potassium 4.9 mmol/L (3.5-5.5); Sodium 143 mmol/L (135-145); Total Bilirubin 0.3 mg/dL (0.3-1.2)
== END | disposition home or self-care (01) ==
LOC: LABWHC1 13:45
PROVIDERS: ATTEND Internal Medicine Infectious Disease
DX: M86.8X8 Other osteomyelitis, other site (principal); E55.9 Vitamin D deficiency, unspecified
CPT/HCPCS: 36415; 80053; 82306; 85025; 85652; 86140

== ENCOUNTER → 2021-03-29 | Outpatient (CLI) | payer MEDICARE, OTHER ==
[2021-03-29 18:13] LABS: Basophils # (A) 0.01 X 10*3/uL (0.00-0.10); Basophils % (A) 0.1 %; Eosinophils # (A) 0.04 X 10*3/uL (0.04-0.35); Eosinophils % (A) 0.6 %; HCT 39.5 % (39.6-50.0); HGB 13.4 g/dL (13.0-17.0); Lymphocytes % (A) 25.6 %; MCH 32.4 pg (27.0-32.0); MCHC 33.9 g/dL (32.0-37.0); MCV 95.6 fL (80.0-97.0); Mean Platelet Volume 10.2 fL (9.5-12.2); Monocytes # (A) 0.45 X 10*3/uL (0.20-1.00); Monocytes % (A) 6.4 %; Neutrophils % (A) 66.9 %; Platelet Count 230 X 10*3/uL (140-440); RBC 4.13 X 10*6/uL (4.40-5.60); RDW 13.1 % (11.5-14.5); WBC 7.03 X 10*3/uL (4.50-10.00)
[2021-03-29 19:07] LABS: Erythrocyte Sedimentation Rate 31 mm/Hr (0-20)
[2021-03-30 05:26] LABS: African American GFR (CKD) 89.6 (60.0-200.0); BUN/Creat Ratio 23.15 Ratio (12.00-20.00); Blood Urea Nitrogen 20.9 mg/dL (9.0-27.0); C Reactive Protein <0.30 mg/dL (0.00-0.80); Calcium 9.6 mg/dL (8.7-10.3); Carbon Dioxide 25.1 mmol/L (21.6-31.8); Chloride 101 mmol/L (96-109); Glucose 110 mg/dL (70-110); Non-African American GFR(CKD) 77.3 (60.0-200.0); Potassium 4.4 mmol/L (3.5-5.5); Sodium 139 mmol/L (135-145)
== END | disposition home or self-care (01) ==
LOC: LABWHC1 12:33
PROVIDERS: ATTEND Internal Medicine Infectious Disease
DX: M27.2 Inflammatory conditions of jaws (principal)
CPT/HCPCS: 36415; 80048; 85025; 85652; 86140

== ENCOUNTER → 2021-09-05 | Outpatient (CLI) | payer MEDICARE, OTHER ==
[2021-09-05 21:33] LABS: Basophils # (A) 0.01 X 10*3/uL (0.00-0.10); Basophils % (A) 0.1 %; Eosinophils # (A) 0.04 X 10*3/uL (0.04-0.35); Eosinophils % (A) 0.6 %; HCT 40.3 % (39.6-50.0); HGB 13.1 g/dL (13.0-17.0); Immature Grans, Automated 0.3 %; Lymphocytes # (A) 1.78 X 10*3/uL (0.90-5.00); Lymphocytes % (A) 24.5 %; MCHC 32.5 g/dL (32.0-37.0); MCV 98.5 fL (80.0-97.0); Mean Platelet Volume 10.2 fL (9.5-12.2); Monocytes # (A) 0.52 X 10*3/uL (0.20-1.00); Monocytes % (A) 7.2 %; NRBC Per 100 WBC 0 /100 WBCS (0.0-0.0); Neutrophils # (A) 4.89 X 10*3/uL (1.80-7.70); Neutrophils % (A) 67.3 %; Platelet Count 177 X 10*3/uL (140-440); RBC 4.09 X 10*6/uL (4.40-5.60); RDW 14.1 % (11.5-14.5); WBC 7.26 X 10*3/uL (4.50-10.00)
[2021-09-05 22:32] LABS: Erythrocyte Sedimentation Rate 14 mm/Hr (0-20)
[2021-09-06 00:35] LABS: C Reactive Protein 0.8 mg/dL (0.00-0.80)
[2021-09-06 00:46] LABS: African American GFR (CKD) 70.6 (60.0-200.0); Albumin 4.1 g/dL (3.8-4.9); Albumin/Globulin Ratio 1.28 (1.60-3.17); Anion Gap 13.4 mmol/L (10.00-18.00); BUN/Creat Ratio 17.82 Ratio (12.00-20.00); Blood Urea Nitrogen 19.6 mg/dL (9.0-27.0); Calcium 9.7 mg/dL (8.7-10.3); Carbon Dioxide 25.6 mmol/L (20.0-27.5); Globulin 3.2 g/dL (1.6-3.3); Non-African American GFR(CKD) 60.9 (60.0-200.0); Potassium 4.6 mmol/L (3.5-5.5); Total Bilirubin 0.3 mg/dL (0.30-1.20); Total Protein 7.3 g/dL (6.2-8.2)
== END | disposition home or self-care (01) ==
LOC: LABWHC1 13:55
PROVIDERS: ATTEND Internal Medicine Infectious Disease
DX: M86.9 Osteomyelitis, unspecified (principal)
CPT/HCPCS: 36415; 80053; 85025; 85652; 86140

== ENCOUNTER → 2021-12-06 | Outpatient (CLI) | payer MEDICARE, OTHER ==
[2021-12-06 19:29] LABS: Erythrocyte Sedimentation Rate 11 mm/Hr (0-20)
[2021-12-06 19:33] LABS: Basophils # (A) 0.02 X 10*3/uL (0.00-0.10); Basophils % (A) 0.4 %; Eosinophils # (A) 0.04 X 10*3/uL (0.04-0.35); Eosinophils % (A) 0.7 %; HCT 39.7 % (39.6-50.0); HGB 13.1 g/dL (13.0-17.0); Immature Grans, Automated 0.4 %; Lymphocytes # (A) 1.69 X 10*3/uL (0.90-5.00); Lymphocytes % (A) 30.1 %; MCH 31.8 pg (27.0-32.0); MCV 96.4 fL (80.0-97.0); Monocytes # (A) 0.37 X 10*3/uL (0.20-1.00); Monocytes % (A) 6.6 %; NRBC Per 100 WBC 0 /100 WBCS (0.0-0.0); Neutrophils # (A) 3.47 X 10*3/uL (1.80-7.70); Neutrophils % (A) 61.8 %; Platelet Count 230 X 10*3/uL (140-440); RBC 4.12 X 10*6/uL (4.40-5.60); RDW 13.2 % (11.5-14.5); WBC 5.61 X 10*3/uL (4.50-10.00)
[2021-12-06 22:36] LABS: African American GFR (CKD) 69.1 (60.0-200.0); Anion Gap 10.3 mmol/L (10.00-18.00); BUN/Creat Ratio 14.82 Ratio (12.00-20.00); Blood Urea Nitrogen 16.6 mg/dL (9.0-27.0); C Reactive Protein 2.2 mg/dL (0.00-0.80); Calcium 9.8 mg/dL (8.7-10.3); Non-African American GFR(CKD) 59.6 (60.0-200.0); Potassium 4.5 mmol/L (3.5-5.5)
== END | disposition home or self-care (01) ==
LOC: LABWHC1 12:53
PROVIDERS: ATTEND Internal Medicine Infectious Disease
DX: Z00.00 Encounter for general adult medical examination without abnormal findings (principal); M27.2 Inflammatory conditions of jaws
CPT/HCPCS: 36415; 80048; 85025; 85652; 86140

== ENCOUNTER → 2022-01-03 | Outpatient (CLI) | payer MEDICARE, OTHER ==
--- NOTE | 2022-01-04 09:07 | CT ---
EXAMINATION TYPE: CT facial bones w con DATE OF EXAM: 01/03/2022 COMPARISON: 02/06/2021 HISTORY: 86-year-old male M27.2, inflammatory condyle of jaw TECHNIQUE: Contiguous axial scanning of the facial bones performed with IV Contrast, patient injected with 70ml mL of Isovue 300. Coronal reconstructions performed. CT DLP: 789.3 mGycm Automated exposure control for dose reduction was used. FINDINGS: The TMJs are intact. Redemonstrated focal bony destruction just beyond the angle of the right mandibl e. There seems to be greater degree of bony bridging at the lateral cortical fracture site, coronal imag e 27. However, a greater degree of osteolysis along the lateral cortical margin is now noted, refer t o coronal image 28. . The abscess space within the mandible measures approximately 3.1 x 1.2 cm vers us 2.8 x 1.0 cm, previously. A few small foci of air remain within. Continued thickening of the overl ayala soft tissues and suspected drainage wound. Redemonstrated empty socket on the left mandibular angle as well relatively similar 1.7 cm. Scattered small dental caries of the mandibular teeth. Soft tissue fullness in the anterior upper nasal cavity measuring up to 2.6 cm AP. Possible polyps. L eftward nasal septal deviation. Trace mucosal thickening ethmoid air cells. Lobulated mucosal thicken ing floor of the left maxillary sinus. Again, we note a large Mykel cell on the right. Osteomeatal c omplexes are patent. Trace scattered fluid within the bilateral mastoid air cells questionable clinical significance. Rela raoul for any mastoid pain to exclude mastoiditis. IMPRESSION: REDEMONSTRATED FOCAL INTRAOSSEOUS EROSION/ABSCESS JUST ANTERIOR TO THE RIGHT ANGLE OF THE MANDIBLE. O VERALL SIZE IS SIMILAR AT 3.1 X 1.2 CM (VERSUS 2.8 X 1.0 CM, PREVIOUSLY). SMALL FOCI OF AIR REMAIN WI THIN. THERE MAY BE SLIGHT PROGRESSION IN LATERAL CORTICAL OSTEOLYSIS (CORONAL IMAGE 28) WITH PERSISTE NT OVERLYING DRAINAGE WOUND. SMALL FOCI OF AIR REMAIN WITHIN THE ABSCESS.
== END | disposition home or self-care (01) ==
LOC: RADCTMAIN 14:27
PROVIDERS: ATTEND Internal Medicine Infectious Disease
DX: M27.2 Inflammatory conditions of jaws (principal)
CPT/HCPCS: 82565; 84520; 70487; 36415; Q9967

== ENCOUNTER 2022-03-08 13:28 | Emergency (ER) | payer MEDICARE, OTHER ==
[2022-03-08] MEDS ORDERED: SODIUM CHLORIDE 0.9% 1,000 ML IV STA (14:11)
--- NOTE | 2022-03-08 14:14 | ED ---
General Adult HPI - General Chief complaint: ENT Stated complaint: trouble swallowing Time Seen by Provider: 03/08/22 14:00 Source: patient Mode of arrival: ambulatory Limitations: no limitations - History of Present Illness Initial comments: Dictation was produced using [employer] dictation software. please excuse any grammatical, word or spelling errors. Chief Complaint: 87-year-old male past medical history of tongue carcinoma presents to the ER for dysphagia History of Present Illness: Is an 87-year-old male. History of present illness obtained mostly from was at bedside. 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 His cancer of his tongue was treated with chemo and radiation therapy. reports that patient's salivary glands and throat area have been ruled with all the radiation therapy. He is had intermittent bouts of swallowing difficulties and chronic nasal congestion. This morning patient tried to have some liquids however the liquid 1 straight out of his nose. Patient able however to sometimes intermittently since this morning keep fluids down. Patient complains that his nose feels clogged. Denies any fever, chills or night sweats. No shortness of breath. He gets surv eillance scopes done by ENT once yearly with no recurrence of cancer. Patient had scoped last 5 months ago by ENT. The ROS documented in this emergency department record has been reviewed and confirmed by me. Those systems with pertinent positive or negative responses have been documented in the HPI. All other systems are other negative and/or noncontributory. PHYSICAL EXAM: General Impression: Alert and oriented x3, not in acute distress HEENT: Normocephalic atraumatic, extra-ocular movements intact, pupils equal and reactive to light bilaterally, mucous membranes moist. Cardiovascular: Heart regular rate and rhythm Chest: Able to complete full sentences, no retractions, no tachypnea Abdomen: abdomen soft, non-tender, non-distended, no organomegaly Musculoskeletal: Pulses present and equal in all extremities, no peripheral edema Motor: no focal deficits noted Neurological: CN II-XII grossly intact, no focal motor or sensory deficits noted Skin: Intact with no visualized rashes Psych: Normal affect and mood ED course: 87-year-old male presents to the emergency for dysphagia. Vital signs upon arrival are within acceptable limits. Laboratory evaluation obtained. CBC within acceptable limits. Metabolic panel shows findings within acceptable limits. Magnesium level is 1.5. 4 panel viral PCR is negative. Computed tomography scan of the face and soft tissue neck CT shows erosive changes to the right mandible which may represent periodontal disease. There is concern that perhaps patient would need a repeat stat/computed tomography scan for evaluation of recurrent cancer. There is. Be suspected post radiation changes to the neck. Also a pulmonary nodule which radiology report requests nonemergent surveillance monitoring imaging. Labs and imaging results were discussed with patient and patient's at the bedside. Patient tolerating liquid intake. He is been on soft diet. Disposition options were discussed with patient and they are agreeable with discharge. Given a point with ENT on Friday. Given strict return precautions. He understandable and agreeable to plan. - Related Data Home Medications Medication Instructions Recorded Confirmed Acetaminophen [Tylenol Extra 1,000 mg PO BID PRN 05/28/17 09/30/20 Strength] Atorvastatin [Lipitor] 10 mg PO HS 05/28/17 09/30/20 Cholecalciferol [Vitamin D3 (25 2,000 unit PO DAILY 05/28/17 09/30/20 Mcg = 1000 Iu)] Levothyroxine Sodium [Synthroid] 50 mcg PO DAILY 05/28/17 09/30/20 Fluticasone Nasal [place] [Flonase 2 spr EA NOSTRIL DAILY PRN 09/30/20 09/30/20 Nasal [place]] Gabapentin [Neurontin] 300 mg PO TID 09/30/20 09/30/20 Omeprazole Magnesium [PriLOSEC OTC] 20 mg PO DAILY PRN 09/30/20 09/30/20 Pentoxifylline [TRENtal] 400 mg PO TID-W/MEALS 09/30/20 09/30/20 Thera Tears 1 drop BOTH EYES TID PRN 09/30/20 09/30/20 diphenhydrAMINE [Benadryl] 25 mg PO QID PRN 09/30/20 09/30/20 Previous Rx's Medication Instructions Recorded cefTRIAXone [Rocephin] 2,000 mg IVP Q24HR #42 vial 10/05/20 metroNIDAZOLE [Flagyl] 500 mg PO TID 21 Days #126 tab 10/05/20 Allergies Allergy/AdvReac Type Severity Reaction Status Date / Time Sulfa (Sulfonamide Allergy Itching Verified 03/08/22 13:55 Antibiotics) Review of Systems ROS Statement: Those systems with pertinent positive or pertinent negative responses have been documented in the HPI. ROS Other: All systems not noted in ROS Statement are negative. 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 History of Any Multi-Drug Resistant Organisms: None Reported Past Surgical History: Cholecystectomy, Orthopedic Surgery, Tonsillectomy Additional Past Surgical History / Comment(s): Cataract Past Psychological History: No Psychological Hx Reported Smoking Status: Former smoker Past Alcohol Use History: None Reported Past Drug Use History: None Reported - Past Family History Mother Family Medical History: Unable to Obtain Father Family Medical History: Unable to Obtain General Exam Limitations: no limitations Course Vital Signs 03/08/22 13:52 Temperature 99.4 F Pulse Rate 88 Respiratory 20 Rate Blood Pressure 116/66 O2 Sat by Pulse 99 Oximetry Medical Decision Making - Lab Data Result diagrams: 03/08/22 14:26 03/08/22 14:26 Lab Results 03/08/22 03/08/22 03/08/22 Range/Units 14:25 14:26 14:26 WBC 11.5 H (3.8-10.6) k/uL RBC 4.18 L (4.30-5.90) m/uL Hgb 13.4 (13.0-17.5) gm/dL Hct 41.5 (39.0-53.0) % MCV 99.2 (80.0-100.0) fL MCH 32.0 (25.0-35.0) pg MCHC 32.2 (31.0-37.0) g/dL RDW 14.0 (11.5-15.5) % Plt Count 196 (150-450) k/uL MPV 8.9 Neutrophils % 78 % Lymphocytes % 12 % Monocytes % 6 % Eosinophils % 0 % Basophils % 0 % Neutrophils # 9.0 H (1.3-7.7) k/uL Lymphocytes # 1.4 (1.0-4.8) k/uL Monocytes # 0.7 (0-1.0) k/uL Eosinophils # 0.0 (0-0.7) k/uL Basophils # 0.0 (0-0.2) k/uL Sodium 137 (137-145) mmol/L Potassium 5.0 (3.5-5.1) mmol/L Chloride 99 (98-107) mmol/L Carbon Dioxide 26 (22-30) mmol/L Anion Gap 12 mmol/L BUN 22 H (9-20) mg/dL Creatinine 0.99 (0.66-1.25) mg/dL Est GFR (CKD-EPI)AfAm 79 (>60 ml/min/1.73 sqM) Est GFR (CKD-EPI)NonAf 69 (>60 ml/min/1.73 sqM) Glucose 110 H (74-99) mg/dL Calcium 9.7 (8.4-10.2) mg/dL Magnesium 1.5 L (1.6-2.3) mg/dL Influenza Type A (PCR) Not Detected (Not Detectd) Influenza Type B (PCR) Not Detected (Not Detectd) RSV (PCR) Not Detected (Not Detectd) SARS-CoV-2 (PCR) Not Detected (Not Detectd) Disposition Clinical Impression: Dysphagia Disposition: HOME SELF-CARE Condition: Fair Instructions (If sedation given, give patient instructions): Chronic Dysphagia (DC) Is patient prescribed a controlled substance at d/c from ED?: No Referrals: Irvin Sauceda MD [Primary Care Provider] - 1-2 days Levi Guevara MD [STAFF PHYSICIAN] - 1-2 days Time of Disposition: 18:32
[2022-03-08 15:01] LABS: Basophils % (A) 0 %; Eosinophils % (A) 0 %; HCT 41.5 % (39.0-53.0); HGB 13.4 gm/dL (13.0-17.5); Lymphocytes # (A) 1.4 k/uL (1.0-4.8); Lymphocytes % (A) 12 %; MCHC 32.2 g/dL (31.0-37.0); MCV 99.2 fL (80.0-100.0); Mean Platelet Volume 8.9; Monocytes # (A) 0.7 k/uL (0-1.0); Monocytes % (A) 6 %; Neutrophils % (A) 78 %; Platelet Count 196 k/uL (150-450); RBC 4.18 m/uL (4.30-5.90); WBC 11.5 k/uL (3.8-10.6)
[2022-03-08 15:54] LABS: Calcium 9.7 mg/dL (8.4-10.2); Magnesium 1.5 mg/dL (1.6-2.3)
--- NOTE | 2022-03-08 18:22 | CT ---
EXAMINATION TYPE: CT soft tissue neck w con, CT facial bones w con CT DLP: combined 753.1 mGycm, Automated exposure control for dose reduction was used. DATE OF EXAM: 03/08/2022 5:39 PM COMPARISON: None. CLINICAL INDICATION:Male, 87 years old with history of dysphagia, hx of tongue CA, dysphagia, hx of t ongue CA. TECHNIQUE: Standard enhanced CT of the neck as well as axial CT imaging of the facial structures.. A xial sections with coronal and sagittal reformats were obtained. Contrast used:Isovue 300 with IV Contrast, Oral contrast used: none. FINDINGS: Brain: Visualized portions are grossly unremarkable. Orbits: The lenses are not visualized in the globes. Sinuses: Mild paranasal sinus mucosal thickening. Spaces of the neck: Ill-defined soft tissue identified throughout neck around the airway and also inv olving the more superficial soft tissues with streaky fat stranding changes. Musculoskeletal: There is erosive changes identified within the right mandible which is unclear wheth er these are very abdominal disease or infiltrative mass. Roughly measures 1.7 x 1.5 cm. No acute oss eous pathology. Multilevel disc degeneration changes are seen throughout the spine. Lymph nodes: Multiple nonenlarged lymph nodes are seen along both anterior chains of the neck. Vascular structures: There is a diminutive appearance of the right vertebral artery which does appear patent. The left vertebral artery appears normal in caliber with patency. There is a dominant left v ertebral artery. The internal carotid artery on the left and right demonstrate calcified and noncalci fied plaquing with greater than 70% stenosis bilaterally. Thoracic Inlet/airway: Airway is patent. Apical suspected scarring present. There is a right upper lo be 6 mm pulmonary nodule. Soft tissues/Thyroid: Thyroid and remainder of the soft tissues are unremarkable. There is soft tissu e edema noted and most pronounced on the right. Involving the right cheek. IMPRESSION 1. Erosive changes to the right mandible which may represent periodontal disease with recurrence ent irely excluded. The visualized time does appear symmetric. Correlation with direct visualization and PET/CT would be of benefit to rule out recurrence. 2. Suspected postradiation changes to the neck with diffuse hazy soft tissue within this structures around the airways. Soft tissue edema most pronounced in the right neck could also be post radiation changes. Correlation with imaging at outside institution would be of benefit. 3. Calcified and noncalcified plaque with greater than 70% stenosis of the bilateral carotid bifurca tions. 4. Right upper lobe pulmonary nodule measuring 6 mm. Correlation with priors at outside institution would be of benefit. Nonemergent CT chest may be of benefit.
[2022-03-08 19:00] VITALS: BP 122/72; PULSE 84; RESP 18; TEMP 98
== END 2022-03-08 18:59 | disposition home or self-care (01) ==
LOC: EC 13:28
DX: R13.10 Dysphagia, unspecified (principal); E78.5 Hyperlipidemia, unspecified; K21.9 Gastro-esophageal reflux disease without esophagitis; E07.9 Disorder of thyroid, unspecified; Z87.891 Personal history of nicotine dependence; Z20.822 Contact with and (suspected) exposure to COVID-19; Z79.890 Hormone replacement therapy; Z79.899 Other long term (current) drug therapy; Z88.2 Allergy status to sulfonamides
CPT/HCPCS: 36415; 80048; 83735; 85025; 87636; 70487; 70491; 99284; 96360; Q9967

== ENCOUNTER → 2022-03-14 | Outpatient (CLI) | payer MEDICARE, OTHER ==
--- NOTE | 2022-03-14 14:45 | FL ---
EXAMINATION TYPE: FL barium swallow w video DATE OF EXAM: 03/14/2022 CLINICAL HISTORY: 87-year-old male R13.10, Dysphagia. Patient with remote history of treated tongue cancer, trouble swallowing. TECHNIQUE: Deglutition study is performed utilizing thin liquid barium, nectar thick liquid barium, barium thick applesauce, and barium coated cracker. COMPARISON: None. Total fluoroscopy time: 4 minutes 17 seconds. Total images: None. Real-time fluoroscopy support was provided to speech pathology. FINDINGS: There is limited to no movement identified in the epiglottic region. There is aspiration with thin li quid. Prominent residuals are noted with all consistencies. Remaining consistencies show aspiration r esiduals after the swallow. Mild CP muscle hypertrophy. IMPRESSION: Aspiration with thin liquids. Mild to moderate residuals. Other consistencies show aspiration of resi duals after the swallow. Please refer to speech therapist notes for further details if necessary.
== END | disposition home or self-care (01) ==
LOC: RADFLMAIN 10:58
PROVIDERS: ATTEND Otolaryngology
DX: R13.10 Dysphagia, unspecified (principal)
CPT/HCPCS: 74230

== ENCOUNTER → 2022-05-17 | Outpatient (CLI) | payer MEDICARE, OTHER ==
[2022-05-17 22:51] LABS: Basophils # (A) 0.01 X 10*3/uL (0.00-0.10); Basophils % (A) 0.2 %; Eosinophils # (A) 0.07 X 10*3/uL (0.04-0.35); Eosinophils % (A) 1.4 %; HCT 37.5 % (39.6-50.0); Immature Grans, Automated 0.2 %; Lymphocytes # (A) 1.53 X 10*3/uL (0.90-5.00); Lymphocytes % (A) 30.4 %; MCH 30.7 pg (27.0-32.0); MCV 95.9 fL (80.0-97.0); Monocytes # (A) 0.35 X 10*3/uL (0.20-1.00); NRBC Per 100 WBC 0 /100 WBCS (0.0-0.0); Neutrophils # (A) 3.06 X 10*3/uL (1.80-7.70); Neutrophils % (A) 60.8 %; Platelet Count 234 X 10*3/uL (140-440); RBC 3.91 X 10*6/uL (4.40-5.60); RDW 14.1 % (11.5-14.5); WBC 5.03 X 10*3/uL (4.50-10.00)
[2022-05-17 22:55] LABS: African American GFR (CKD) 69.3 (60.0-200.0); Albumin 3.7 g/dL (3.8-4.9); Albumin/Globulin Ratio 1.26 (1.60-3.17); Anion Gap 8.8 mmol/L (10.00-18.00); BUN/Creat Ratio 14.59 Ratio (12.00-20.00); Blood Urea Nitrogen 16.2 mg/dL (9.0-27.0); C Reactive Protein 1.8 mg/dL (0.00-0.80); Calcium 9.9 mg/dL (8.7-10.3); Carbon Dioxide 30.7 mmol/L (20.0-27.5); Globulin 2.9 g/dL (1.6-3.3); Non-African American GFR(CKD) 59.8 (60.0-200.0); Potassium 4.1 mmol/L (3.5-5.5); Total Bilirubin 0.3 mg/dL (0.30-1.20); Total Protein 6.6 g/dL (6.2-8.2)
[2022-05-17 23:14] LABS: Erythrocyte Sedimentation Rate 23 mm/Hr (0-20)
== END | disposition home or self-care (01) ==
LOC: LABWHC1 13:41
PROVIDERS: ATTEND Internal Medicine Infectious Disease
DX: E07.9 Disorder of thyroid, unspecified (principal); M27.2 Inflammatory conditions of jaws
CPT/HCPCS: 36415; 80053; 85025; 85652; 86140

== ENCOUNTER → 2022-06-19 | Outpatient (CLI) | payer MEDICARE, OTHER ==
--- NOTE | 2022-06-19 15:30 | XR ---
EXAMINATION TYPE: XR mandible complete DATE OF EXAM: 06/19/2022 COMPARISON: NONE HISTORY: Pain TECHNIQUE: 5 views of the mandible are submitted. FINDINGS: There is erosive change noted to involve the mandibular bodies bilaterally which may reflec t underlying osteomyelitis or chronic osteomyelitis. There is evidence for fracture. Consider CT bernardo elation. IMPRESSION: Correlate for osteomyelitis or a chronic osteomyelitis of the mandibular bodies bilateral ly.
== END | disposition home or self-care (01) ==
LOC: RADXRMAIN 14:42
PROVIDERS: ATTEND Family Medicine
DX: M27.1 Giant cell granuloma, central (principal); M27.2 Inflammatory conditions of jaws
CPT/HCPCS: 70110

== ENCOUNTER → 2022-06-26 | Outpatient (CLI) | payer MEDICARE, OTHER ==
--- NOTE | 2022-06-27 09:56 | CT ---
EXAMINATION TYPE: CT facial bones w con CT DLP: 693.0 mGycm, Automated exposure control for dose reduction was used. DATE OF EXAM: 06/26/2022 4:46 PM COMPARISON: 03/08/2022, 01/04/2022 CLINICAL INDICATION:Male, 87 years old with history of M27.2 INFLAMMATORY CONDITIONS OF JAWS; JAW JILL N TECHNIQUE: Multiple unenhanced axial CT images were obtained of the facial bones soft tissue and bone windows. Coronal, axial and sagittal reformatted images were also provided in soft tissue and bone windows and submitted for interpretation. FINDINGS: There is no evidence of fracture, subluxation, dislocation, or significant soft tissue swelling. The orbital contents are unremarkable.The temporal-mandibular joints appear symmetric. The visualized por tion of the paranasal sinuses appear clear. FINDINGS: Brain: Visualized portions are grossly unremarkable. Sinuses: Mild paranasal sinus mucosal thickening. Spaces of the neck: Ill-defined soft tissue identified throughout neck most pronounced on the right a spect of the destructive changes of the right mandible with increased fat stranding and soft tissue b est appreciated on series 4 image 30. There is no organizing fluid collection suggest abscess. Musculoskeletal: Overall increase in erosive erosive changes identified within the right mandible com pared to immediate prior 03/08/2022. There is a curvilinear tract has widened that extends more anterio rly on today's exam now measuring 4 mm, previously 2 mm when comparing back to 01/17/2021. (Series 3 i mage 28) Lucent destruction extends more posteriorly demonstrates increased widening of a defect within the la teral aspect of the mandible now measuring 7 mm, previously 4 mm (series 3 image 37). There is osseou s bridging of the left mandible fracture seen and multiple priors. Multilevel disc degeneration changes are seen throughout the spine. Lymph nodes: Multiple nonenlarged lymph nodes are seen along both anterior chains of the neck. Vascular structures: There is a diminutive appearance of the right vertebral artery which does appear patent. The left vertebral artery appears normal in caliber with patency. There is a dominant left v ertebral artery. The internal carotid artery on the left and right demonstrate calcified and noncalci fied plaquing with greater than 70% stenosis on the right. Soft tissues/Thyroid: Partially visualized thyroid gland is unremarkable. IMPRESSION 1. Increase in erosive changes to the right mandible which remains concerning for osteomyelitis with increasing soft tissue edema along the right subcutaneous tissues. No organizing fluid collection id entified. 2. Similar postradiation changes to the neck with diffuse hazy soft tissue within this structures ar ound the airways. Soft tissue edema most pronounced in the right neck could also be post radiation ch anges. Correlation with imaging at outside institution would be of benefit. 3. Calcified and noncalcified plaque with greater than 70% stenosis of the carotid bifurcations, rig ht greater than left.
== END | disposition home or self-care (01) ==
LOC: RADCTMAIN 13:55
PROVIDERS: ATTEND Family Medicine
DX: I65.23 Occlusion and stenosis of bilateral carotid arteries (principal); M27.2 Inflammatory conditions of jaws; R60.0 Localized edema
CPT/HCPCS: 82565; 84520; 70487; 36415; Q9967

== ENCOUNTER 2022-07-09 16:11 | Emergency (ER) | payer MEDICARE, OTHER ==
[2022-07-09 16:17] VITALS: TEMP 97.9
[2022-07-09] MEDS ORDERED: SODIUM CHLORIDE 0.9% 2,000 ML IV STA (16:22)
[2022-07-09] MEDS ORDERED: DOCUSATE 100 MG CAP PO STA (16:23)
--- NOTE | 2022-07-09 17:03 | XR ---
EXAMINATION TYPE: XR KUB DATE OF EXAM: 07/09/2022 4:50 PM INDICATION: Patient age:Male; 87 years old; Reason for study: constipation; COMPARISON: None. TECHNIQUE: One radiographic view of the abdomen was obtained. FINDINGS: Large stool burden throughout the colon. Right upper quadrant cholecystectomy clips. Scolio sis changes are seen throughout the spine. The bowel gas pattern is nonspecific without dilated loops of small or large bowel. The osseous structures are intact. No abnormal calcifications are present . Fecal material and gas are demonstrated throughout the colon and rectum. IMPRESSION: Moderate stool burden with a nonspecific bowel gas pattern without radiographic evidence for acute pr ocess.
[2022-07-09 17:34] LABS: HCT 34.1 % (39.0-53.0); HGB 11.3 gm/dL (13.0-17.5); Hypochromasia Slight; MCH 31.6 pg (25.0-35.0); MCV 95.7 fL (80.0-100.0); Mean Platelet Volume 8.4; Platelet Count 272 k/uL (150-450); RBC 3.57 m/uL (4.30-5.90); RDW 13.4 % (11.5-15.5); WBC 3.9 k/uL (3.8-10.6)
--- NOTE | 2022-07-09 17:47 | ED ---
Abdominal Pain HPI - General Chief Complaint: Abdominal Pain Stated Complaint: constipation Time Seen by Provider: 07/09/22 16:21 Source: patient Mode of arrival: ambulatory Limitations: no limitations - History of Present Illness Initial Comments: Patient is an 87-year-old male who presents to the emergency department with a chief complaint of constipation. Patient states he has not had a bowel movement in 10 days. Denies fever, chills, abdominal pain, nausea, vomiting. Patient currently on Tylenol 3 for chronic osteomyelitis. He has not been taking stool softeners consistently. Tried Mirilax yesterday and one Fleet enema today with no relief. He denies history of bowel obstruction. - Related Data Home Medications Medication Instructions Recorded Confirmed Acetaminophen [Tylenol Extra 500 mg PO TID 05/28/17 07/09/22 Strength] Atorvastatin [Lipitor] 10 mg PO HS 05/28/17 07/09/22 Levothyroxine Sodium [Synthroid] 50 mcg PO DAILY 05/28/17 07/09/22 Gabapentin [Neurontin] 300 mg PO TID 09/30/20 07/09/22 diphenhydrAMINE [Benadryl] 25 mg PO QID PRN 09/30/20 07/09/22 Acetaminophen-Codeine 300-30mg 1 tab PO TID 07/09/22 07/09/22 [Tylenol w/codeine #3] Azelastine HCl [Astepro] 2 spr EA NOSTRIL BID 07/09/22 07/09/22 Calcium Carbonate [Tums] 500 mg PO TID PRN 07/09/22 07/09/22 Carboxymethylcellulose Sodium 1 drop BOTH EYES TID PRN 07/09/22 07/09/22 [Thera Tears] Ciprofloxacin HCl [Cipro] 750 mg PO BID 07/09/22 07/09/22 hydrOXYzine pamoate [hydrOXYzine 25 mg PO TID PRN 07/09/22 07/09/22 PAMOATE] Allergies Allergy/AdvReac Type Severity Reaction Status Date / Time Sulfa (Sulfonamide Allergy Itching Verified 07/09/22 17:41 Antibiotics) Review of Systems ROS Statement: Those systems with pertinent positive or pertinent negative responses have been documented in the HPI. ROS Other: All systems not noted in ROS Statement are negative. 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 Absent: scleral icterus, conjunctival injection, periorbital swelling Respiratory exam: Present: normal lung sounds bilaterally. Absent: respiratory distress, wheezes, rales, rhonchi, stridor Cardiovascular Exam: Present: regular rate, normal rhythm, normal heart sounds. Absent: systolic murmur, diastolic murmur, rubs, gallop, clicks GI/Abdominal exam: Present: soft, normal bowel sounds. Absent: distended, tenderness, guarding, rebound, rigid Neurological exam: Present: alert, oriented X3, CN II-XII intact Psychiatric exam: Present: normal affect, normal mood Skin exam: Present: warm, dry, intact, normal color. Absent: rash Course Vital Signs 07/09/22 16:12 Temperature 97.9 F Pulse Rate 76 Respiratory 16 Rate Blood Pressure 105/65 O2 Sat by Pulse 98 Oximetry Procedures - Rectal Disimpaction Consent Obtained: verbal consent Indication: fecal impaction Procedural Sedation: No Sedation/Analgesia: none Technique: manual disimpaction with gloved finger Result: significant stool output Complications: none Patient Tolerated Procedure: well, no complications Medical Decision Making - Medical Decision Making Was pt. sent in by a medical professional or institution ([facility] Amador, HOME CARE PROVIDER, urgent care, hospital, or jail...) When possible be specific @ -[No] Did you speak to anyone other than the patient for history (EMS, parent, family, police, friend...)? What history was obtained from this source @ -[No] Did you review nursing and triage notes (agree or disagree)? Why? @ -[I reviewed and agree with nursing and triage notes] Were old charts reviewed (outside hosp., previous admission, EMS record, old EKG, old radiological studies, urgent care reports/EKG's, jail records)? Report findings @ -[No old charts were reviewed] Differential Diagnosis (chest pain, altered mental status, abdominal pain women, abdominal pain men, vaginal bleeding, weakness, fever, dyspnea, syncope, headache, dizziness, GI bleed, back pain, seizure, CVA, palpatations, mental health)? @Constipation, bowel obstruction, ileus EKG interpreted by me (3pts min.). @ -[As above] X-rays interpreted by me (1pt min.). @ -Yes, KUB showing moderate stool in the colon and rectum CT interpreted by me (1pt min.). @ -[None done] U/S interpreted by me (1pt. min.). @ -[None done] What testing was considered but not performed or refused? (CT, X-rays, U/S, labs)? Why? @ -[None] What meds were considered but not given or refused? Why? @ -[None] Did you discuss the management of the patient with other professionals (professionals i.e. , PA, HOME CARE PROVIDER, lab, RT, psych nurse, social media designer, machine operator hay stacker, teacher, housing management officer, watch case polisher)? Give summary @ -[No] Was smoking cessation discussed for >3mins.? @ -[No] Was critical care preformed (if so, how long)? @ -[No] Were there social determinants of health that impacted care today? How? (Homelessness, low income, unemployed, alcoholism, drug addiction, transportation, low edu. Level, literacy, decrease access to med. care, [facility], rehab)? @ -[No] Was there de-escalation of care discussed even if they declined (Discuss DNR or withdrawal of care, Hospice)? DNR status @ -[No] What co-morbidities impacted this encounter? (DM, HTN, Smoking, COPD, CAD, Cancer, CVA, ARF, Chemo, Hep., AIDS, mental health diagnosis, sleep apnea, morbid obesity)? @ -[None] Was patient admitted / discharged? Hospital course, mention meds given and rout e, prescriptions, significant lab abnormalities, going to OR and other pertinent info. @ -This is an 87-year-old male presenting with constipation. Afebrile, no abdominal tenderness. No nausea or vomiting. KUB x-ray shows moderate stool present in the colon and rectum. Patient given milk of molasses enema without relief. Fecal disimpaction was performed successfully. Patient had large bowel movement after. Patient will be discharged with colace. We discussed important of hydration and high fiber diet. Undiagnosed new problem with uncertain prognosis? @ -[No] Drug Therapy requiring intensive monitoring for toxicity (Heparin, Nitro, Insulin, Cardizem)? @ -[No] Were any procedures done? @ -yes, disimpaction Diagnosis/symptom? @ -Constipation Acute, or Chronic, or Acute on Chronic? @ -acute Uncomplicated (without systemic symptoms) or Complicated (systemic symptoms)? @ -uncomplicated Side effects of treatment? @ -[No] Exacerbation, Progression, or Severe Exacerbation? @ -[No] Poses a threat to life or bodily function? How? (Chest pain, [place], [place], pneumonia, PE, COPD, DKA, ARF, appy, cholecystitis, CVA, Diverticulitis, Homicidal, Suicidal, threat to staff... and all critical care pts) @ -[No] Dr. Chinchilla is my attending. - Lab Data Result diagrams: 07/09/22 17:12 07/09/22 17:12 Lab Results 07/09/22 07/09/22 07/09/22 Range/Units 17:12 17:12 17:12 WBC 3.9 (3.8-10.6) k/uL RBC 3.57 L (4.30-5.90) m/uL Hgb 11.3 L (13.0-17.5) gm/dL Hct 34.1 L (39.0-53.0) % MCV 95.7 (80.0-100.0) fL MCH 31.6 (25.0-35.0) pg MCHC 33.0 (31.0-37.0) g/dL RDW 13.4 (11.5-15.5) % Plt Count 272 (150-450) k/uL MPV 8.4 Neutrophils % (Manual) 45 % Band Neuts % (Manual) 4 % Lymphocytes % (Manual) 44 % Monocytes % (Manual) 3 % Eosinophils % (Manual) 4 % Neutrophils # (Manual) 1.90 (1.3-7.7) k/uL Lymphocytes # (Manual) 1.72 (1.0-4.8) k/uL Monocytes # (Manual) 0.12 (0-1.0) k/uL Eosinophils # (Manual) 0.16 (0-0.7) k/uL Nucleated RBCs 0 (0-0) /100 WBC Manual Slide Review Performed Hypochromasia Slight Sodium 139 (137-145) mmol/L Potassium 5.2 H (3.5-5.1) mmol/L Chloride 103 (98-107) mmol/L Carbon Dioxide 33 H (22-30) mmol/L Anion Gap 3 mmol/L BUN 17 (9-20) mg/dL Creatinine 0.89 (0.66-1.25) mg/dL Est GFR (CKD-EPI)AfAm 90 (>60 ml/min/1.73 sqM) Est GFR (CKD-EPI)NonAf 78 (>60 ml/min/1.73 sqM) Glucose 100 H (74-99) mg/dL Plasma Lactic Acid Corey 1.0 (0.7-2.0) mmol/L Calcium 8.7 (8.4-10.2) mg/dL Total Bilirubin 0.3 (0.2-1.3) mg/dL AST 40 (17-59) U/L ALT 24 (4-49) U/L Alkaline Phosphatase 78 (38-126) U/L Total Protein 6.6 (6.3-8.2) g/dL Albumin 3.7 (3.5-5.0) g/dL Amylase 31 (30-110) U/L Lipase 19 L (23-300) U/L Disposition Clinical Impression: Constipation Disposition: HOME SELF-CARE Condition: Good Instructions (If sedation given, give patient instructions): Constipation (ED), High Fiber Diet (ED) Additional Instructions: Please take stool softener daily while on narcotic medication. It is important stay hydrated and maintain a high fiber diet. Follow-up with primary care provider in one to 2 days. Return to the emergency department if you experience new, concerning, or worsening symptoms. Is patient prescribed a controlled substance at d/c from ED?: No Referrals: Irvin Sauceda MD [Primary Care Provider] - 1-2 days
[2022-07-09 17:54] LABS: Albumin 3.7 g/dL (3.5-5.0); Calcium 8.7 mg/dL (8.4-10.2); Potassium 5.2 mmol/L (3.5-5.1); Total Bilirubin 0.3 mg/dL (0.2-1.3); Total Protein 6.6 g/dL (6.3-8.2)
[2022-07-09 18:03] LABS: Band Neutrophils % 4 %; Eosinophils # (M) 0.16 k/uL (0-0.7); Lymphocytes # (M) 1.72 k/uL (1.0-4.8); Monocytes # (M) 0.12 k/uL (0-1.0); Neutrophils % (M) 45 %; Nucleated Red Blood Cells 0 /100 WBC (0-0); Total Cells Counted 100
[2022-07-09] MEDS ORDERED: BENZOCAINE 20% HEMORRHOIDAL OINT 28GM RECTAL STA (19:12)
[2022-07-09] MEDS ORDERED: KETOROLAC 15 MG/ML 1 ML VIAL IVP STA (19:14)
[2022-07-09 20:19] VITALS: BP 110/76; PULSE 78; RESP 18
== END 2022-07-09 20:20 | disposition home or self-care (01) ==
LOC: EC 16:11
DX: K59.00 Constipation, unspecified (principal); E78.5 Hyperlipidemia, unspecified; E07.9 Disorder of thyroid, unspecified; Z87.891 Personal history of nicotine dependence; Z79.890 Hormone replacement therapy; Z79.899 Other long term (current) drug therapy; Z88.2 Allergy status to sulfonamides
CPT/HCPCS: 36415; 80053; 82150; 83605; 83690; 85025; 74018; 99283; 96374; 96361 ×2; J1885

== ENCOUNTER → 2022-12-04 | Outpatient (CLI) | payer MEDICARE, OTHER ==
--- NOTE | 2022-12-04 15:16 | XR ---
EXAMINATION TYPE: XR shoulder complete BILAT DATE OF EXAM: 12/04/2022 CLINICAL HISTORY: Bilateral pain. History of fall injury. TECHNIQUE: Three views of the bilateral shoulders are obtained. COMPARISON: None. FINDINGS: Osseous structures are demineralized which is noted to lower radiographic sensitivity. No acute displaced fracture is seen bilaterally. Severe Narrowing superior glenohumeral joints bilateral ly with mild to moderate spurring or bony projections from inferior medial humeral head is larger on the left. Moderate to severe spurring and narrowing right acromioclavicular joint. Mild to moderate n arrowing and spurring left acromioclavicular joint. Visualized ribs are intact bilaterally. IMPRESSION: As above.
--- NOTE | 2022-12-04 15:19 | XR ---
EXAMINATION TYPE: XR Hip Bilateral and AP pelvis, XR femur RT DATE OF EXAM: 12/04/2022 COMPARISON: NONE HISTORY: Prior fall injuries with pain. TECHNIQUE: A single AP view of the pelvis is obtained. Two views of the bilateral hips are obtained. Additional 2 views right femur. FINDINGS: There is no acute fracture/dislocation evident in the pelvis. The sacroiliac joints appea r symmetric and within normal limits. Mild axial joint space loss and acetabular spurring of both hip s. Pubic symphysis is intact. The overlying soft tissue appears unremarkable. Two views of bilateral hips show no acute fracture or dislocation. No focal lytic or sclerotic lesio n seen in the proximal femurs bilaterally. The overlying soft tissue is unremarkable bilaterally. Images of the right femur show well-defined lucency through the lateral aspect of the patella could r eflect bipartite type patella. This could be be better evaluated with three-view right knee x-ray if desired. No acute displaced fracture in the right femur. Suboptimal study with overlying clothing mat erial present. Moderate posterior medial arterial vascular calcification. IMPRESSION: As above
== END | disposition home or self-care (01) ==
LOC: RADXRMAIN 14:23
PROVIDERS: ATTEND Family Medicine
DX: M16.0 Bilateral primary osteoarthritis of hip (principal); M79.604 Pain in right leg; M25.511 Pain in right shoulder; M25.512 Pain in left shoulder
CPT/HCPCS: 73521

== ENCOUNTER 2023-05-03 18:04 | Emergency (ER) | payer MEDICARE, OTHER ==
[2023-05-03] MEDS ORDERED: MORPHINE SULFATE 4 MG/ML SYRINGE IVP STA (18:22)
[2023-05-03 18:26] VITALS: TEMP 98.6
[2023-05-03] MEDS ORDERED: HYDROcodone/APAP 7.5-325MG 1 EACH TAB PO ONE (18:34)
[2023-05-03 18:44] LABS: Basophils % (A) 0 %; Eosinophils % (A) 0 %; HCT 36.2 % (39.0-53.0); HGB 11.9 gm/dL (13.0-17.5); Lymphocytes # (A) 1.1 k/uL (1.0-4.8); Lymphocytes % (A) 11 %; MCH 31.1 pg (25.0-35.0); MCHC 32.7 g/dL (31.0-37.0); MCV 95.1 fL (80.0-100.0); Mean Platelet Volume 7.9; Monocytes # (A) 0.5 k/uL (0-1.0); Monocytes % (A) 5 %; Neutrophils % (A) 81 %; Platelet Count 289 k/uL (150-450); RBC 3.81 m/uL (4.30-5.90); WBC 9.9 k/uL (3.8-10.6)
[2023-05-03 19:08] LABS: ALT 14 U/L (4-49); AST 18 U/L (17-59); African American GFR (CKD) 79 (>60 ml/min/1.73 sqM); Alkaline Phosphatase 75 U/L (38-126); Anion Gap 10 mmol/L; Blood Urea Nitrogen 23 mg/dL (9-20); Calcium 9.3 mg/dL (8.4-10.2); Carbon Dioxide 28 mmol/L (22-30); Chloride 99 mmol/L (98-107); Glucose 166 mg/dL (74-99); Non-African American GFR(CKD) 68 (>60 ml/min/1.73 sqM); Potassium 4.5 mmol/L (3.5-5.1); Sodium 137 mmol/L (137-145); Total Bilirubin 0.4 mg/dL (0.2-1.3); Total Protein 7.4 g/dL (6.3-8.2)
--- NOTE | 2023-05-03 20:04 | CT ---
EXAMINATION TYPE: CT facial bones w con CT DLP: 622 mGycm, Automated exposure control for dose reduction was used. DATE OF EXAM: 05/03/2023 7:30 PM COMPARISON: 06/26/2022. CLINICAL INDICATION:Male, 88 years old with history of infection R jaw, right sided jaw pain and swel ling TECHNIQUE: Multiple unenhanced axial CT images were obtained of the facial bones soft tissue and bone windows. Coronal, axial and sagittal reformatted images were also provided in soft tissue and bone windows and submitted for interpretation. FINDINGS: Extensive fat stranding changes around the right mandible with osseous destruction with cortical juan josé kthrough and a mottled appearance to the right mandible osseous structures. There is soft tissue ruben a surrounding the right face centered around the osseous erosion. There is a organizing fluid collect ion within the right masseter muscle suspicious for abscess measuring 15 x 13 mm noted series 201 candy ge 63. Atherosclerosis of the bilateral carotid bifurcation with at least 70-90% stenosis secondary to predo minantly noncalcified plaque in the left up to Bilaterally aphakia. Anterior cranial portions of the exam are unremarkable. There is nonvisualization of the right vertebral artery with reconstitution near its confluence. Bilaterally aphakia. IMPRESSION: 1. Extensive abnormality to the right mandible with osseous erosion. No evidence of superimposed fra cture. Findings suggestive of intramuscularly abscess of the right masseter muscle. Findings suggesti ve of osteomyelitis. 2. Atherosclerosis of the bilateral carotid bifurcation with at least 70-90% stenosis. 3. Nonvisualization of the right vertebral artery suspicious for occlusion.
--- NOTE | 2023-05-03 20:28 | ED ---
ENT HPI - General Chief complaint: ENT Stated complaint: jaw pain Time Seen by Provider: 05/03/23 18:12 Source: patient Mode of arrival: ambulatory Limitations: physical limitation - History of Present Illness Initial comments: 88-year-old male presenting with chief complaint of pain and swelling to the right jaw. 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 Patient has been on Cipro twice a day for the last 3 days. While he reports that the swelling is improving, he has been having increasing pain. No fevers or chills. No difficulty breathing or swallowing. No nausea or vomiting. No chest pain. - Related Data Home Medications Medication Instructions Recorded Confirmed Acetaminophen [Tylenol Extra 500 mg PO TID 05/28/17 07/09/22 Strength] Atorvastatin [Lipitor] 10 mg PO HS 05/28/17 07/09/22 Levothyroxine Sodium [Synthroid] 50 mcg PO DAILY 05/28/17 07/09/22 Gabapentin [Neurontin] 300 mg PO TID 09/30/20 07/09/22 diphenhydrAMINE [Benadryl] 25 mg PO QID PRN 09/30/20 07/09/22 Acetaminophen-Codeine 300-30mg 1 tab PO TID 07/09/22 07/09/22 [Tylenol w/codeine #3] Azelastine HCl [Astepro] 2 spr EA NOSTRIL BID 07/09/22 07/09/22 Calcium Carbonate [Tums] 500 mg PO TID PRN 07/09/22 07/09/22 Carboxymethylcellulose Sodium 1 drop BOTH EYES TID PRN 07/09/22 07/09/22 [Thera Tears] Ciprofloxacin HCl [Cipro] 750 mg PO BID 07/09/22 07/09/22 hydrOXYzine pamoate [hydrOXYzine 25 mg PO TID PRN 07/09/22 07/09/22 PAMOATE] Allergies Allergy/AdvReac Type Severity Reaction Status Date / Time Sulfa (Sulfonamide Allergy Itching Verified 05/03/23 18:11 Antibiotics) Review of Systems ROS Statement: Those systems with pertinent positive or pertinent negative responses have been documented in the HPI. ROS Other: All systems not noted in ROS Statement are negative. 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 Past Psychological History: No Psychological Hx Reported Smoking Status: Former smoker Past Alcohol Use History: None Reported Past Drug Use History: None Reported - Past Family History Mother Family Medical History: Unable to Obtain Father Family Medical History: Unable to Obtain General Exam Limitations: physical limitation General appearance: alert, in no apparent distress Head exam: Present: atraumatic, normocephalic, normal inspection Eye exam: Present: normal appearance, EOMI ENT exam: Present: other (Swelling and tenderness to the right sided jaw) Neck exam: Present: normal inspection, full ROM Respiratory exam: Present: normal lung sounds bilaterally. Absent: respiratory distress, wheezes, rales, rhonchi, stridor Cardiovascular Exam: Present: regular rate, normal rhythm, normal heart sounds. Absent: systolic murmur, diastolic murmur, rubs, gallop, clicks Neurological exam: Present: alert, oriented X3 Psychiatric exam: Present: normal affect, normal mood Skin exam: Present: warm, dry, intact, normal color. Absent: rash Course Vital Signs 05/03/23 05/03/23 18:06 21:24 Temperature 98.6 F Pulse Rate 83 94 Respiratory 20 18 Rate Blood Pressure 138/72 127/81 O2 Sat by Pulse 98 95 Oximetry Medical Decision Making - Medical Decision Making Was pt. sent in by a medical professional or institution (, PA, ORCHARD MANAGER, urgent care, hospital, or custodial...) When possible be specific @ -No Did you speak to anyone other than the patient for history (EMS, parent, family, police, friend...)? What history was obtained from this source @ -No Did you review nursing and triage notes (agree or disagree)? Why? @ -I reviewed and agree with nursing and triage notes Were old charts reviewed (outside hosp., previous admission, EMS record, old EKG, old radiological studies, urgent care reports/EKG's, custodial records)? Report findings @ -No old charts were reviewed Differential Diagnosis (chest pain, altered mental status, abdominal pain women, abdominal pain men, vaginal bleeding, weakness, fever, dyspnea, syncope, headache, dizziness, GI bleed, back pain, seizure, CVA, palpatations, mental health, musculoskeletal)? @ -Differential includes cellulitis, abscess, ALLERGIC reaction, this is not an all inclusive list EKG interpreted by me (3pts min.). @ -As above X-rays interpreted by me (1pt min.). @ -None done CT interpreted by me (1pt min.). @ -Extensive abnormality to the right mandible with osseous erosion. No evidence of superimposed fracture. Findings suggestive of intramuscular abscess of the right masseter muscle. Findings suggestive of osteomyelitis. An 4 of sclerosis in the bilateral carotid bifurcation with at least 70-90% stenosis. Nonvisualization of the right vertebral artery suspicious for occlusion U/S interpreted by me (1pt. min.). @ -None done What testing was considered but not performed or refused? (CT, X-rays, U/S, labs)? Why? @ -None What meds were considered but not given or refused? Why? @ -None Did you discuss the management of the patient with other professionals (professionals i.e. , PA, ORCHARD MANAGER, lab, RT, psych nurse, social media coordinator, washtub worker, teacher, textile technical officer, adult protective caseworker)? Give summary @ -I spoke with oral surgeon Dr. Bassett who recommended transfer. I spoke with the [facility] transfer line who declined transfer due to lack of OMFS I spoke with Dr. Merida at [facility] who accepted transfer Was smoking cessation discussed for >3mins.? @ -No Was critical care preformed (if so, how long)? @ -No Were there social determinants of health that impacted care today? How? (Homelessness, low income, unemployed, alcoholism, drug addiction, transportat ion, low edu. Level, literacy, decrease access to med. care, [facility], rehab)? @ -No Was there de-escalation of care discussed even if they declined (Discuss DNR or withdrawal of care, Hospice)? DNR status @ -No What co-morbidities impacted this encounter? (DM, HTN, Smoking, COPD, CAD, Cancer, CVA, ARF, Chemo, Hep., AIDS, mental health diagnosis, sleep apnea, morbid obesity)? @ -None Was patient admitted / discharged? Hospital course, mention meds given and route, prescriptions, significant lab abnormalities, going to OR and other pertinent info. 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 Patient has been on Cipro for the last 3 days prescribed by his PCP and states that the pain is worsening. On physical exam there is swelling and tenderness appreciated to the right side of the jaw. CT shows intramuscular abscess to the right masseter. Osteonecrosis of the jaw is noted. I spoke with our oral surgeon who recommended transfer. I spoke with [facility] who accepted transfer. Patient and family are agreeable with plan. Patient receiving 1 dose Unasyn prior to transfer. I discussed this case with my attending Dr. Chinchilla. Undiagnosed new problem with uncertain prognosis? @ -No Drug Therapy requiring intensive monitoring for toxicity (Heparin, Nitro, Insulin, Cardizem)? @ -No Were any procedures done? @ -No Diagnosis/symptom? @ -Intramuscular abscess to the right masseter Acute, or Chronic, or Acute on Chronic? @ -Acute Uncomplicated (without systemic symptoms) or Complicated (systemic symptoms)? @ -Complicated Side effects of treatment? @ -No Exacerbation, Progression, or Severe Exacerbation? @ -No Poses a threat to life or bodily function? How? (Chest pain, [place], [place], pneumonia, PE, COPD, DKA, ARF, appy, cholecystitis, CVA, Diverticulitis, Homicidal, Suicidal, threat to staff... and all critical care pts) @ -yes Diagnosis/symptom? @Osteonecrosis of the jaw Acute, or Chronic, or Acute on Chronic? @Chronic Uncomplicated (without systemic symptoms) or Complicated (systemic symptoms)? @Complicated Side effects of treatment? @ none Exacerbation, Progression, or Severe Exacerbation] @ no Poses a threat to life or bodily function? @ yes - Lab Data Result diagrams: 05/03/23 18:26 05/03/23 18:26 Lab Results 05/03/23 05/03/23 Range/Units 18:26 18:26 WBC 9.9 (3.8-10.6) k/uL RBC 3.81 L (4.30-5.90) m/uL Hgb 11.9 L (13.0-17.5) gm/dL Hct 36.2 L (39.0-53.0) % MCV 95.1 (80.0-100.0) fL MCH 31.1 (25.0-35.0) pg MCHC 32.7 (31.0-37.0) g/dL RDW 13.0 (11.5-15.5) % Plt Count 289 (150-450) k/uL MPV 7.9 Neutrophils % 81 % Lymphocytes % 11 % Monocytes % 5 % Eosinophils % 0 % Basophils % 0 % Neutrophils # 8.0 H (1.3-7.7) k/uL Lymphocytes # 1.1 (1.0-4.8) k/uL Monocytes # 0.5 (0-1.0) k/uL Eosinophils # 0.0 (0-0.7) k/uL Basophils # 0.0 (0-0.2) k/uL Sodium 137 (137-145) mmol/L Potassium 4.5 (3.5-5.1) mmol/L Chloride 99 (98-107) mmol/L Carbon Dioxide 28 (22-30) mmol/L Anion Gap 10 mmol/L BUN 23 H (9-20) mg/dL Creatinine 0.99 (0.66-1.25) mg/dL Est GFR (CKD-EPI)AfAm 79 (>60 ml/min/1.73 sqM) Est GFR (CKD-EPI)NonAf 68 (>60 ml/min/1.73 sqM) Glucose 166 H (74-99) mg/dL Calcium 9.3 (8.4-10.2) mg/dL Total Bilirubin 0.4 (0.2-1.3) mg/dL AST 18 (17-59) U/L ALT 14 (4-49) U/L Alkaline Phosphatase 75 (38-126) U/L Total Protein 7.4 (6.3-8.2) g/dL Albumin 4.0 (3.5-5.0) g/dL Disposition Clinical Impression: Osteomyelitis of mandible, Facial abscess Narrative: Intramuscular abscess of the right masseter Disposition: OTHER INSTITUTION NOT DEFINED Condition: Stable Referrals: None,Stated [REFERRING] - 1-2 days Time of Disposition: 21:27 - Out of Hospital Transfer - Req. Specs Out of Hospital Transfer - Requested Specifics: Other Emergency Center ([facility])
[2023-05-03] MEDS ORDERED: AMPICILLIN-SULBACTAM 3 GM in SODIUM CHLORIDE 0.9% 100 ML IVPB STA (21:32)
[2023-05-03] MEDS ORDERED: HYDROmorphone 0.5 MG/0.5 ML SYRINGE IVP STA (21:33)
[2023-05-03 21:50] VITALS: BP 127/81; PULSE 94
[2023-05-03] MEDS ORDERED: HYDROcodone/APAP 5-325MG 1 EACH TAB PO STA (22:35)
[2023-05-03 22:55] VITALS: RESP 16
== END 2023-05-03 22:51 | disposition other institution (70) ==
LOC: EC 18:04
DX: M86.9 Osteomyelitis, unspecified (principal); L02.01 Cutaneous abscess of face; E78.5 Hyperlipidemia, unspecified; E07.9 Disorder of thyroid, unspecified; Z87.891 Personal history of nicotine dependence; Z79.890 Hormone replacement therapy; Z79.899 Other long term (current) drug therapy; Z88.2 Allergy status to sulfonamides
CPT/HCPCS: 36415; 80053; 85025; 70487; 99284; 96365; J0295; Q9967

== ENCOUNTER 2023-12-29 12:30 | Inpatient (IN) | payer MEDICARE, OTHER ==
--- NOTE | 2023-12-29 12:54 | ED ---
General Adult HPI - General Chief complaint: Extremity Injury, Lower Stated complaint: Urogenital Time Seen by Provider: 12/29/23 12:35 Source: patient, RN notes reviewed, old records reviewed Mode of arrival: ambulatory Limitations: no limitations - History of Present Illness Initial comments: This is an 88-year-old male who presents to the emergency department complaining about a cyst on the right side of his scrotum. Patient states has been there for 6 months but is just recently gotten bigger and much more excoriated. Patient states also the pain is increased. Patient denies any fever. Patient is been seeing his primary medical care doctor for this. Patient states he has been on Cipro once daily for the last 2 or 3 months for dental issue. Patient was unaware that the cyst and started to drain. - Related Data Home Medications Medication Instructions Recorded Confirmed Acetaminophen [Tylenol Extra 500 mg PO DAILY 05/28/17 12/29/23 Strength] Atorvastatin [Lipitor] 10 mg PO HS 05/28/17 12/29/23 Gabapentin [Neurontin] 600 mg PO HS 09/30/20 12/29/23 diphenhydrAMINE [Benadryl] 25 mg PO QID PRN 09/30/20 12/29/23 Acetaminophen-Codeine 300-30mg 1 tab PO TID 07/09/22 12/29/23 [Tylenol w/codeine #3] Azelastine HCl [Astepro] 2 spr EA NOSTRIL DAILY 07/09/22 12/29/23 Calcium Carbonate [Tums] 500 mg PO TID PRN 07/09/22 12/29/23 Carboxymethylcellulose Sodium 1 drop BOTH EYES TID PRN 07/09/22 12/29/23 [Thera Tears] hydrOXYzine pamoate 25 mg PO DAILY PRN 07/09/22 12/29/23 Ciprofloxacin HCl [Cipro] 750 mg PO DAILY 12/29/23 12/29/23 Coffee Xt/Phosphatidyl Serine 1 cap PO DAILY@159912/29/23 12/29/23 [Neuriva Original 100-100Mg Cap] Docusate [Colace] 100 mg PO DAILY 12/29/23 12/29/23 Gabapentin [Neurontin] 400 mg PO BID@1400,1800 12/29/23 12/29/23 Levothyroxine Sodium [Synthroid] 75 mcg PO DAILY@1600 12/29/23 12/29/23 Multivitamins, Thera [Multivitamin 1 tab PO DAILY 12/29/23 12/29/23 (formulary)] Allergies Allergy/AdvReac Type Severity Reaction Status Date / Time Sulfa (Sulfonamide Allergy Itching Verified 12/29/23 16:19 Antibiotics) Review of Systems ROS Statement: Those systems with pertinent positive or pertinent negative responses have been documented in the HPI. ROS Other: All systems not noted in ROS Statement are negative. 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 Patient is nontoxic and well- hydrated and is in normal distress. Patient is extremely hard of hearing ENT: Neck is soft and supple. No significant lymphadenopathy is noted. Oropharynx is clear. Moist mucous membranes. Neck has full range of motion without elici ting any pain. EYES: The sclera were anicteric and conjunctiva were pink and moist. Extraocular m ovements were intact and pupils were equal round and reactive to light. Eyelids were unremarkable. PULMONARY: Unlabored respirations. Good breath sounds bilaterally. No audible rales rhonchi or wheezing was noted. CARDIOVASCULAR: There is a regular rate and rhythm without any murmurs gallops or rubs. ABDOMEN: Soft and nontender with normal bowel sounds. SKIN: Just lateral to the scrotum on the right patient has an abscess that is fluctuant and already draining. Scrotum does not appear to be erythematous or have any cellulitis. NEUROLOGIC: Patient is alert and oriented x3. Cranial nerves II through XII are grossly intact. Motor and sensory are also intact. Normal speech, volume and content. Symmetrical smile. MUSCULOSKELETAL: Normal extremities with adequate strength and full range of motion. LYMPHATICS: No significant lymphadenopathy is noted PSYCHIATRIC: Normal psychiatric evaluation. Limitations: no limitations Course Vital Signs 12/29/23 12:33 Temperature 98 F Pulse Rate 72 Respiratory 18 Rate Blood Pressure 125/74 O2 Sat by Pulse 99 Oximetry Medical Decision Making - Medical Decision Making Was pt. sent in by a medical professional or institution (, PA, CREATIVE SERVICES DIRECTOR, urgent care, hospital, or detention...) When possible be specific @ -Patient was sent in by the primary medical care Did you speak to anyone other than the patient for history (EMS, parent, family, police, friend...)? What history was obtained from this source @ -'s gave quite a bit of the history because the patient was very hard of hearing Did you review nursing and triage notes (agree or disagree)? Why? @ -I reviewed and agree with nursing and triage notes Were old charts reviewed (outside hosp., previous admission, EMS record, old EKG, old radiological studies, urgent care reports/EKG's, detention records)? Report findings @ -No old charts were reviewed Differential Diagnosis (chest pain, altered mental status, abdominal pain women, abdominal pain men, vaginal bleeding, weakness, fever, dyspnea, syncope, headache, dizziness, GI bleed, back pain, seizure, CVA, palpatations, mental health, musculoskeletal)? @ -Abscess groin, Carolyne's gangrene, cellulitis, this is not an all-inclusive list EKG interpreted by me (3pts min.). @ -As above X-rays interpreted by me (1pt min.). @ -None done CT interpreted by me (1pt min.). @ -CT scan shows an area of about 2 x 1 and half centimeters of collection of fluid consistent with an abscess U/S interpreted by me (1pt. min.). @ -None done What testing was considered but not performed or refused? (CT, X-rays, U/S, labs)? Why? @ -None What meds were considered but not given or refused? Why? @ -None Did you discuss the management of the patient with other professionals (pro fessionals i.e. , CAMRYN, CREATIVE SERVICES DIRECTOR, lab, RT, psych nurse, social insurance analyst, terra cotta setter, teacher, air support control officer, leather case finisher)? Give summary @ -I spoke with Dr. Gagnon he agreed to admit the patient. Was smoking cessation discussed for >3mins.? @ -No Was critical care preformed (if so, how long)? @ -No Were there social determinants of health that impacted care today? How? (Homelessness, low income, unemployed, alcoholism, drug addiction, transportation, low edu. Level, literacy, decrease access to med. care, penitentiary, rehab)? @ -No Was there de-escalation of care discussed even if they declined (Discuss DNR or withdrawal of care, Hospice)? DNR status @ -No What co-morbidities impacted this encounter? (DM, HTN, Smoking, COPD, CAD, Cancer, CVA, ARF, Chemo, Hep., AIDS, mental health diagnosis, sleep apnea, mor bid obesity)? @ -None Was patient admitted / discharged? Hospital course, mention meds given and rou te, prescriptions, significant lab abnormalities, going to OR and other pertinent info. @ -Patient's abscess was already draining I palpated it to get out quite a bit more pus and I had the wound cultured. I also started the patient on Vanco. After I told the family that the patient was going to be admitted for this infection and placed on Vanco the told me that he has osteomyelitis of the right jaw and an open wound on the side of the face at which point in time the took off the Band-Aid and it was a draining wound on the side of the face. I will be consulting Dr. Sheffield who already knows about this osteomyelitis according to the Undiagnosed new problem with uncertain prognosis? @ -No Drug Therapy requiring intensive monitoring for toxicity (Heparin, Nitro, Insulin, Cardizem)? @ -No Were any procedures done? @ -No Diagnosis/symptom? @ -Abscess groin Acute, or Chronic, or Acute on Chronic? @ -Default Uncomplicated (without systemic symptoms) or Complicated (systemic symptoms)? @ -Acute complicated Side effects of treatment? @ -No Exacerbation, Progression, or Severe Exacerbation? @ -No Poses a threat to life or bodily function? How? (Chest pain, [place], [place], pneumonia, PE, COPD, DKA, ARF, appy, cholecystitis, CVA, Diverticulitis, Homicidal, Suicidal, threat to staff... and all critical care pts) @ -Yes this can lead to sepsis and endorgan dysfunction - Lab Data Result diagrams: 12/29/23 13:10 12/29/23 13:10 Lab Results 12/29/23 12/29/23 12/29/23 Range/Units 13:10 13:10 13:10 WBC 6.7 (3.8-10.6) k/uL RBC 3.91 L (4.30-5.90) m/uL Hgb 12.0 L (13.0-17.5) gm/dL Hct 37.6 L (39.0-53.0) % MCV 96.4 (80.0-100.0) fL MCH 30.8 (25.0-35.0) pg MCHC 31.9 (31.0-37.0) g/dL RDW 13.7 (11.5-15.5) % Plt Count 229 (150-450) k/uL MPV 8.2 Neutrophils % 75 % Lymphocytes % 16 % Monocytes % 5 % Eosinophils % 1 % Basophils % 0 % Neutrophils # 5.1 (1.3-7.7) k/uL Lymphocytes # 1.1 (1.0-4.8) k/uL Monocytes # 0.3 (0-1.0) k/uL Eosinophils # 0.1 (0-0.7) k/uL Basophils # 0.0 (0-0.2) k/uL Sodium 136 L (137-145) mmol/L Potassium 4.4 (3.5-5.1) mmol/L Chloride 100 (98-107) mmol/L Carbon Dioxide 29 (22-30) mmol/L Anion Gap 7 mmol/L BUN 18 (9-20) mg/dL Creatinine 0.94 (0.66-1.25) mg/dL Est GFR (CKD-EPI)AfAm 84 (>60 ml/min/1.73 sqM) Est GFR (CKD-EPI)NonAf 73 (>60 ml/min/1.73 sqM) Glucose 101 H (74-99) mg/dL Plasma Lactic Acid Corey 1.8 (0.7-2.0) mmol/L Calcium 9.3 (8.4-10.2) mg/dL Total Bilirubin 0.5 (0.2-1.3) mg/dL AST 21 (17-59) U/L ALT 17 (4-49) U/L Alkaline Phosphatase 85 (38-126) U/L Total Protein 7.1 (6.3-8.2) g/dL Albumin 4.0 (3.5-5.0) g/dL Disposition Clinical Impression: Abscess, groin Disposition: ADMITTED IP TO THIS HOSP Referrals: Irvin Sauceda MD [Primary Care Provider] - 1-2 days Time of Disposition: 17:55
[2023-12-29] MEDS ORDERED: VANCOMYCIN IV PER PHARMACY 1 EACH MISC MISCELLANE PRN (12:55)
[2023-12-29] MEDS: SODIUM CHLORIDE 0.9% 1,000 ML IV ONE ×2 (13:22→18:28)
[2023-12-29] MEDS: KETOROLAC 15 MG/ML 1 ML VIAL IVP STA (13:22)
[2023-12-29] MEDS: VANCOMYCIN 1,250 MG in SODIUM CHLORIDE 0.9% 250 ML IVPB STA (13:23)
[2023-12-29 13:26] LABS: Basophils % (A) 0 %; Eosinophils # (A) 0.1 k/uL (0-0.7); Eosinophils % (A) 1 %; HCT 37.6 % (39.0-53.0); Lymphocytes # (A) 1.1 k/uL (1.0-4.8); Lymphocytes % (A) 16 %; MCH 30.8 pg (25.0-35.0); MCHC 31.9 g/dL (31.0-37.0); MCV 96.4 fL (80.0-100.0); Mean Platelet Volume 8.2; Monocytes # (A) 0.3 k/uL (0-1.0); Monocytes % (A) 5 %; Neutrophils # (A) 5.1 k/uL (1.3-7.7); Neutrophils % (A) 75 %; Platelet Count 229 k/uL (150-450); RBC 3.91 m/uL (4.30-5.90); RDW 13.7 % (11.5-15.5); WBC 6.7 k/uL (3.8-10.6)
[2023-12-29 13:37] LABS: ALT 17 U/L (4-49); AST 21 U/L (17-59); African American GFR (CKD) 84 (>60 ml/min/1.73 sqM); Alkaline Phosphatase 85 U/L (38-126); Anion Gap 7 mmol/L; Blood Urea Nitrogen 18 mg/dL (9-20); Calcium 9.3 mg/dL (8.4-10.2); Carbon Dioxide 29 mmol/L (22-30); Chloride 100 mmol/L (98-107); Glucose 101 mg/dL (74-99); Non-African American GFR(CKD) 73 (>60 ml/min/1.73 sqM); Potassium 4.4 mmol/L (3.5-5.1); Sodium 136 mmol/L (137-145); Total Bilirubin 0.5 mg/dL (0.2-1.3); Total Protein 7.1 g/dL (6.3-8.2)
--- NOTE | 2023-12-29 14:43 | CT ---
EXAMINATION TYPE: CT pelvis w con CT DLP: 764.1 mGycm, Automated exposure control for dose reduction was used. DATE OF EXAM: 12/29/2023 2:28 PM COMPARISON: None CLINICAL INDICATION:Male, 88 years old with history of Abscess; Abscess in groin TECHNIQUE: Axial CT pelvis w con;Sagittal and coronal reformats were created on a separate workstati on. Contrast used:100 ml mL of Isovue 300 with IV Contrast, (none if empty) Oral contrast used: without Oral Contrast (none if empty) FINDINGS: BLADDER: Nondistended with Lopez catheter in place. REPRODUCTIVE: Unremarkable. STOMACH AND BOWEL: No evidence of bowel obstruction. Large stool burden throughout the colon with fec aloma measuring up to 7.7 cm in the rectum. Scattered colonic diverticula. PERITONEUM/RETROPERITONEUM: No evidence of pneumoperitoneum or free fluid. VASCULATURE: No evidence of aortic aneurysm. MUSCULOSKELETAL: No acute osseous abnormalities LYMPH NODES: No gross evidence for lymphadenopathy. SOFT TISSUE/ABDOMINAL WALL: There is a fluid collection measuring 17 x 14 mm in the medial thigh on t he right on delayed imaging. IMPRESSION: 1. Right medial thigh fluid collection measuring 17 x 14 mm. 2. Large stool burden in the rectum and visualized colon. 3. Lopez catheter in appropriate position.
[2023-12-29] MEDS: ATORVASTATIN 10 MG TAB PO SCH (21:15)
[2023-12-29] MEDS: GABAPENTIN 300 MG CAP PO SCH (21:15)
[2023-12-30] MEDS: Acetaminophen-Codeine 300-30mg TAB PO SCH (00:35)
--- NOTE | 2023-12-30 07:04 | P.CONS ---
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 and has been on suppressive antibiotic therapy presenting to the hospital for evaluation of right groin area pain swelling and redness apparently patient did have this swelling for almost 6 months however recently got much bigger excoriated also noticed to have increa sing pain patient describing the pain to be sharp, moderate intensity without any radiation denies significant drainage from it with the symptoms the patient has been evaluated on presentation to the hospital patient was afebrile and no fever have been recorded subsequently patient was not tachycardic hypotensive or hypoxic he did have a white count of 6.7 creatinine 0.94 patient did have a CT of the pelvis right medial thigh fluid collection measuring 17 and 14 mm large stool burden patient was started on Rocephin and vancomycin infectious disease was consulted for further management of antibiotic therapy Review of Systems Positive point and negatives has been mentioned in the HPI, complete review of systems was performed and all other systems are negative 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 Past Psychological History: No Psychological Hx Reported Smoking Status: Former smoker Past Alcohol Use History: None Reported Past Drug Use History: None Reported - Past Family History Mother Family Medical History: Unable to Obtain Father Family Medical History: Unable to Obtain Medications and Allergies Home Medications Medication Instructions Recorded Confirmed Type Acetaminophen [Tylenol Extra 500 mg PO DAILY 05/28/17 12/29/23 History Strength] Atorvastatin [Lipitor] 10 mg PO HS 05/28/17 12/29/23 History Gabapentin [Neurontin] 600 mg PO HS 09/30/20 12/29/23 History diphenhydrAMINE [Benadryl] 25 mg PO QID PRN 09/30/20 12/29/23 History Acetaminophen-Codeine 300-30mg 1 tab PO TID 07/09/22 12/29/23 History [Tylenol w/codeine #3] Azelastine HCl [Astepro] 2 spr EA NOSTRIL DAILY 07/09/22 12/29/23 History Calcium Carbonate [Tums] 500 mg PO TID PRN 07/09/22 12/29/23 History Carboxymethylcellulose Sodium 1 drop BOTH EYES TID PRN 07/09/22 12/29/23 History [Thera Tears] hydrOXYzine pamoate 25 mg PO DAILY PRN 07/09/22 12/29/23 History Ciprofloxacin HCl [Cipro] 750 mg PO DAILY 12/29/23 12/29/23 History Coffee Xt/Phosphatidyl Serine 1 cap PO DAILY@1600 12/29/23 12/29/23 History [Neuriva Original 100-100Mg Cap] Docusate [Colace] 100 mg PO DAILY 12/29/23 12/29/23 History Gabapentin [Neurontin] 400 mg PO BID@1400,1800 12/29/23 12/29/23 History Levothyroxine Sodium [Synthroid] 75 mcg PO DAILY@1600 12/29/23 12/29/23 History Multivitamins, Thera [Multivitamin 1 tab PO DAILY 12/29/23 12/29/23 History (formulary)] Allergies Allergy/AdvReac Type Severity Reaction Status Date / Time Sulfa (Sulfonamide Allergy Itching Verified 12/29/23 16:19 Antibiotics) Physical Exam Vitals: Vital Signs Temp Pulse Resp BP Pulse Ox 12/29/23 12:33 98 F 72 18 125/74 99 Intake and Output 12/29/23 12/29/23 12/29/23 06:59 14:59 22:59 Other: Weight 68.039 kg GENERAL DESCRIPTION: Elderly male lying in bed, no distress. No tachypnea or accessory muscle of respiration use. HEENT: Shows Pallor , no scleral icterus. Oral mucous membrane is dry. No pharyngeal erythema or thrush right jaw did have a small wound with a drainage NECK: Trachea central, no thyromegaly. LUNGS: Unlabored breathing. Clear to auscultation anteriorly. No wheeze or crackle. HEART: S1, S2, regular rate and rhythm. No loud murmur ABDOMEN: Soft, no tenderness , guarding or rigidity, no organomegaly EXTREMITIES: No edema of feet. Right groin did have a area of swelling redness induration SKIN: No rash, no masses palpable. NEUROLOGICAL: The patient is awake, alert, oriented x3, mood and affect normal. Results CBC & Chem 7: 12/29/23 13:10 12/29/23 13:10 Labs: Abnormal Lab Results - Last 24 Hours (Table) 12/29/23 12/29/23 Range/Units 13:10 13:10 RBC 3.91 L (4.30-5.90) m/uL Hgb 12.0 L (13.0-17.5) gm/dL Hct 37.6 L (39.0-53.0) % Sodium 136 L (137-145) mmol/L Glucose 101 H (74-99) mg/dL Assessment and Plan (1) Abscess, groin Current Visit: Yes Status: Acute Code(s): L02.214 - CUTANEOUS ABSCESS OF GROIN SNOMED Code(s): 50287432 (2) Osteomyelitis of mandible Current Visit: No Status: Acute Code(s): M27.2 - INFLAMMATORY CONDITIONS OF JAWS SNOMED Code(s): 418018397 (3) Allergy to sulfa drugs Current Visit: Yes Status: Acute Code(s): Z88.2 - ALLERGY STATUS TO SULFONAMIDES SNOMED Code(s): 48423285 Plan: 1patient presented to the hospital with increasing pain swelling to the right g roin area and this patient apparently did have a swelling for almost 6 months is slightly concerning keeping in mind his history of squamous cell carcinoma to the head and neck area, patient benefit from surgical drainage as well as biopsy for pathology and cultures for microbiological diagnosis 2-patient also have a 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 please excuse any grammatical, word or spelling errors. Time with Patient: Greater than 30
[2023-12-30 07:55] LABS: African American GFR (CKD) 90 (>60 ml/min/1.73 sqM); Non-African American GFR(CKD) 77 (>60 ml/min/1.73 sqM)
[2023-12-30] MEDS: VANCOMYCIN 1,250 MG in SODIUM CHLORIDE 0.9% 250 ML IVPB SCH (09:42)
[2023-12-30] MEDS ORDERED: CALCIUM CARBONATE 500 MG CHEWABLE PO PRN (10:34)
--- NOTE | 2023-12-30 10:45 | P.PN ---
Subjective Progress Note Date: 12/30/23 Principal diagnosis: Groin abscess Patient seen this morning. Patient reports absence of fever, chills, pain and swelling. No other complaints at this time. Gen: In NAD, non-toxic HEENT: normocephalic, atraumatic, hearing acuity is intact, mucous membranes moist CVS: perfusing all extremities well, no pitting edema, Respiratory: symmetric chest expansion, no accessory muscle use, GI: soft, NTTP, ND, : [id number] abscess on right groin, with erythema and pain on palpitation, no suprapubic tenderness, no CVA tenderness MSK/Derm: no rashes, cyanosis Neuro: CN II-XII intact, no motor weakness, Psych: cooperative, euthymic mood, judgment and insight is intact All Systems reviewed and pertinent positives and negatives noted in HPI, all other symptoms are negative Objective - Vital Signs Vital signs: Vital Signs Temp 98.2 F 12/30/23 07:09 Pulse 62 12/30/23 07:09 Resp 14 12/30/23 07:09 BP 112/63 12/30/23 07:09 Pulse Ox 100 12/30/23 07:09 FiO2 Intake & Output 12/29/23 12/30/23 12/30/23 18:59 06:59 18:59 Intake Total 480 Output Total 1075 2000 Balance -1075 -1520 Weight 68.039 kg 68.039 kg Intake: Oral 480 Output: Urine 1075 2000 Coude 375 1000 Other: Voiding Method Indwelling Catheter # Bowel Movements 1 - Labs CBC & Chem 7: 12/29/23 13:10 12/30/23 07:01 Labs: Abnormal Lab Results - Last 24 Hours (Table) 12/29/23 12/29/23 Range/Units 13:10 13:10 RBC 3.91 L (4.30-5.90) m/uL Hgb 12.0 L (13.0-17.5) gm/dL Hct 37.6 L (39.0-53.0) % Sodium 136 L (137-145) mmol/L Glucose 101 H (74-99) mg/dL Microbiology - Last 24 Hours (Table) 12/29/23 13:18 Gram Stain - Preliminary Groin Assessment and Plan (1) Abscess, groin Current Visit: Yes Status: Acute Code(s): L02.214 - CUTANEOUS ABSCESS OF GROIN SNOMED Code(s): 65087679 Plan: Groin abscess 1patient presented to the hospital with increasing pain swelling to the right groin area and this patient apparently did have a swelling for almost 6 months is slightly concerning keeping in mind his history of squamous cell carcinoma to the head and neck area, patient benefit from surgical drainage as well as biopsy for pathology and cultures for microbiological diagnosis 2-patient also has a 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
--- NOTE | 2023-12-30 11:43 | P.GSCN ---
History of Present Illness Consult date: 12/30/23 History of present illness: CHIEF COMPLAINT: Right groin abscess HISTORY OF PRESENT ILLNESS: This is a 88-year-old male who presented to the hospital with right groin abscess. Per patient's chart reported that the groin abscess has been present for about 6 months. There has been swelling and redness. The area is excoriated. And has increased in size. Patient had a pelvic CT completed that reported right medial thigh fluid collection. Patient is on IV antibiotics. Surgical service consulted in regards to patient's right groin abscess. Patient seen and examined with Dr. 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 REVIEW OF SYSTEMS: CONSTITUTIONAL: Denies fever or chills. HEENT: Denies blurred vision, vision changes, or eye pain. Denies hemoptysis CARDIOVASCULAR: Denies chest pain or pressure. RESPIRATORY: No shortness of breath. GASTROINTESTINAL: See HPI for pertinent findings HEMATOLOGIC: Denies bleeding disorders. GENITOURINARY: Denies any blood in urine or increased urinary frequency. SKIN: Denies pruitis. Denies rash. PHYSICAL EXAM: VITAL SIGNS: Reviewed GENERAL: Well-developed in no acute distress. ABDOMEN: Soft. Nondistended. Right groin abscess present. Area of fluctuance and induration. Excoriation noted. NEUROLOGIC: Awake and alert LABORATORY DATA: WBC 6.7 Hgb 12.0 platelets 229 Sodium 136 potassium 4.4 creatinine 0.94 Lactic acid 1.8 IMAGING: CT scan of pelvis reports right medial thigh fluid collection measuring 17 x 14 mm. Large stool burden in the rectum. ASSESSMENT: 1. Right groin abscess 2. Constipation. Large stool burden in rectum on CT PLAN: -Incision and drainage of right groin abscess at bedside by Dr. Hawk today -Continue antibiotics per ID service -Continue pain management -Soapsuds enema ordered for constipation Thank you for this consultation Physician Relay Worker note has been reviewed by physician. Signing provider agrees with the documented findings, assessment, and plan of care. 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 Past Anesthesia/Blood Transfusion Reactions: No Reported Reaction Past Psychological History: No Psychological Hx Reported Smoking Status: Former smoker Past Alcohol Use History: None Reported Past Drug Use History: None Reported - Past Family History Mother Family Medical History: Unable to Obtain Father Family Medical History: Unable to Obtain Medications and Allergies Home Medications Medication Instructions Recorded Confirmed Type Acetaminophen [Tylenol Extra 500 mg PO DAILY 05/28/17 12/29/23 History Strength] Atorvastatin [Lipitor] 10 mg PO HS 05/28/17 12/29/23 History Gabapentin [Neurontin] 600 mg PO HS 09/30/20 12/29/23 History diphenhydrAMINE [Benadryl] 25 mg PO QID PRN 09/30/20 12/29/23 History Acetaminophen-Codeine 300-30mg 1 tab PO TID 07/09/22 12/29/23 History [Tylenol w/codeine #3] Azelastine HCl [Astepro] 2 spr EA NOSTRIL DAILY 07/09/22 12/29/23 History Calcium Carbonate [Tums] 500 mg PO TID PRN 07/09/22 12/29/23 History Carboxymethylcellulose Sodium 1 drop BOTH EYES TID PRN 07/09/22 12/29/23 History [Thera Tears] hydrOXYzine pamoate 25 mg PO DAILY PRN 07/09/22 12/29/23 History Ciprofloxacin HCl [Cipro] 750 mg PO DAILY 12/29/23 12/29/23 History Coffee Xt/Phosphatidyl Serine 1 cap PO DAILY@1600 12/29/23 12/29/23 History [Neuriva Original 100-100Mg Cap] Docusate [Colace] 100 mg PO DAILY 12/29/23 12/29/23 History Gabapentin [Neurontin] 400 mg PO BID@1400,1800 12/29/23 12/29/23 History Levothyroxine Sodium [Synthroid] 75 mcg PO DAILY@1600 12/29/23 12/29/23 History Multivitamins, Thera [Multivitamin 1 tab PO DAILY 12/29/23 12/29/23 History (formulary)] Allergies Allergy/AdvReac Type Severity Reaction Status Date / Time Sulfa (Sulfonamide Allergy Itching Verified 12/29/23 16:19 Antibiotics) Surgical - Exam Vital Signs Temp Pulse Resp BP Pulse Ox 98 F 72 18 125/74 99 12/29/23 12:33 12/29/23 12:33 12/29/23 12:33 12/29/23 12:33 12/29/23 12:33 Results - Labs 12/29/23 13:10 12/30/23 07:01 Abnormal Lab Results - Last 24 Hours (Table) 12/29/23 12/29/23 Range/Units 13:10 13:10 RBC 3.91 L (4.30-5.90) m/uL Hgb 12.0 L (13.0-17.5) gm/dL Hct 37.6 L (39.0-53.0) % Sodium 136 L (137-145) mmol/L Glucose 101 H (74-99) mg/dL Microbiology - Last 24 Hours (Table) 12/29/23 13:18 Gram Stain - Preliminary Groin Diabetes panel 12/29/23 12/30/23 Range/Units 13:10 07:01 Sodium 136 L (137-145) mmol/L Potassium 4.4 (3.5-5.1) mmol/L Chloride 100 (98-107) mmol/L Carbon Dioxide 29 (22-30) mmol/L BUN 18 (9-20) mg/dL Creatinine 0.94 0.88 (0.66-1.25) mg/dL Glucose 101 H (74-99) mg/dL Calcium 9.3 (8.4-10.2) mg/dL AST 21 (17-59) U/L ALT 17 (4-49) U/L Alkaline Phosphatase 85 (38-126) U/L Total Protein 7.1 (6.3-8.2) g/dL Albumin 4.0 (3.5-5.0) g/dL Calcium panel 12/29/23 Range/Units 13:10 Calcium 9.3 (8.4-10.2) mg/dL Albumin 4.0 (3.5-5.0) g/dL Pituitary panel 12/29/23 12/30/23 Range/Units 13:10 07:01 Sodium 136 L (137-145) mmol/L Potassium 4.4 (3.5-5.1) mmol/L Chloride 100 (98-107) mmol/L Carbon Dioxide 29 (22-30) mmol/L BUN 18 (9-20) mg/dL Creatinine 0.94 0.88 (0.66-1.25) mg/dL Glucose 101 H (74-99) mg/dL Calcium 9.3 (8.4-10.2) mg/dL Adrenal panel 12/29/23 12/30/23 Range/Units 13:10 07:01 Sodium 136 L (137-145) mmol/L Potassium 4.4 (3.5-5.1) mmol/L Chloride 100 (98-107) mmol/L Carbon Dioxide 29 (22-30) mmol/L BUN 18 (9-20) mg/dL Creatinine 0.94 0.88 (0.66-1.25) mg/dL Glucose 101 H (74-99) mg/dL Calcium 9.3 (8.4-10.2) mg/dL Total Bilirubin 0.5 (0.2-1.3) mg/dL AST 21 (17-59) U/L ALT 17 (4-49) U/L Alkaline Phosphatase 85 (38-126) U/L Total Protein 7.1 (6.3-8.2) g/dL Albumin 4.0 (3.5-5.0) g/dL
[2023-12-30] MEDS: HYDROmorphone 1 MG/ML 1 ML SYRINGE IVP PRN (11:59)
[2023-12-30] MEDS: GABAPENTIN 400 MG CAP PO SCH (14:23)
--- NOTE | 2023-12-30 14:29 | P.HPIM ---
History of Present Illness H&P Date: 12/30/23 Chief Complaint: Groin abscess Luis Allen 88 y.o M w/ PMH of hypertension, hyperlipidemia reflux, squamous cell carcinoma status postradiation and chemo and right jaw osteomyelitis presents w/ groin abscess. Patient describes a 6 month hx of worsening groin abscess. Abscess is located on the right proximal medial groin area. He describes worsen pain and erythema recently. Denies significant drainage. Currently he reports absence of fever, chills. Gen: in no apparent distress, resting comfortably in bed Eyes: PERRL, no scleral injection or icterus HENT: normocephalic, atraumatic, good hearing acuity, moist mucous membranes Neck: no tracheal deviation, full range of motion Resp: good air exchange, breathing comfortably with no accessory muscle use, no tactile fremitus CVS: good distal perfusion x 4, no pitting edema GI: soft, NTTP, ND, no hepatosplenomegaly : right medial groin area, no suprapubic tenderness, no CVAT, rob catheter is present MSK: no clubbing, no cyanosis, no noted contractures of extremities Skin: no noted rashes, petechiae; temperature of skin is appropriate Neuro: moving all extremities without signs of weakness, CN II-XII intact Psych: cooperative, euthymic mood, insight and judgment intact All Systems reviewed and pertinent positives and negatives noted in HPI, all other symptoms are negative 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 Past Anesthesia/Blood Transfusion Reactions: No Reported Reaction Past Psychological History: No Psychological Hx Reported Smoking Status: Former smoker Past Alcohol Use History: None Reported Past Drug Use History: None Reported - Past Family History Mother Family Medical History: Unable to Obtain Father Family Medical History: Unable to Obtain Medications and Allergies Home Medications Medication Instructions Recorded Confirmed Type Acetaminophen [Tylenol Extra 500 mg PO DAILY 05/28/17 12/29/23 History Strength] Atorvastatin [Lipitor] 10 mg PO HS 05/28/17 12/29/23 History Gabapentin [Neurontin] 600 mg PO HS 09/30/20 12/29/23 History diphenhydrAMINE [Benadryl] 25 mg PO QID PRN 09/30/20 12/29/23 History Acetaminophen-Codeine 300-30mg 1 tab PO TID 07/09/22 12/29/23 History [Tylenol w/codeine #3] Azelastine HCl [Astepro] 2 spr EA NOSTRIL DAILY 07/09/22 12/29/23 History Calcium Carbonate [Tums] 500 mg PO TID PRN 07/09/22 12/29/23 History Carboxymethylcellulose Sodium 1 drop BOTH EYES TID PRN 07/09/22 12/29/23 History [Thera Tears] hydrOXYzine pamoate 25 mg PO DAILY PRN 07/09/22 12/29/23 History Ciprofloxacin HCl [Cipro] 750 mg PO DAILY 12/29/23 12/29/23 History Coffee Xt/Phosphatidyl Serine 1 cap PO DAILY@1600 12/29/23 12/29/23 History [Neuriva Original 100-100Mg Cap] Docusate [Colace] 100 mg PO DAILY 12/29/23 12/29/23 History Gabapentin [Neurontin] 400 mg PO BID@1400,1800 12/29/23 12/29/23 History Levothyroxine Sodium [Synthroid] 75 mcg PO DAILY@1600 12/29/23 12/29/23 History Multivitamins, Thera [Multivitamin 1 tab PO DAILY 12/29/23 12/29/23 History (formulary)] Allergies Allergy/AdvReac Type Severity Reaction Status Date / Time Sulfa (Sulfonamide Allergy Itching Verified 12/29/23 16:19 Antibiotics) Physical Exam Vitals: Vital Signs Temp Pulse Pulse Resp BP BP Pulse Ox 12/30/23 07:09 98.2 F 62 14 112/63 100 12/30/23 01:15 97.6 F 61 18 102/58 98 12/29/23 22:07 98.1 F 60 16 130/71 99 12/29/23 22:00 20 12/29/23 20:11 98.0 F 75 16 122/69 97 12/29/23 12:33 98 F 72 18 125/74 99 Intake and Output 12/29/23 12/30/2312/29/24 22:59 06:59 14:59 Intake Total 480 Output Total 951 003 6957 Balance -716 -411 -1893 Intake: Oral 480 Output: Urine 576 475 3209 Coude 375 1000 Other: Voiding Method Indwelling Catheter # Bowel Movements 1 Weight 68.039 kg Results CBC & Chem 7: 12/29/23 13:10 12/30/23 07:01 Labs: Abnormal Lab Results - Last 24 Hours (Table) 12/29/23 12/29/23 Range/Units 13:10 13:10 RBC 3.91 L (4.30-5.90) m/uL Hgb 12.0 L (13.0-17.5) gm/dL Hct 37.6 L (39.0-53.0) % Sodium 136 L (137-145) mmol/L Glucose 101 H (74-99) mg/dL Microbiology - Last 24 Hours (Table) 12/29/23 13:18 Gram Stain - Preliminary Groin Thrombosis Risk Factor Assmnt - Choose All That Apply Any of the Below Risk Factors Present?: Yes Each Factor Represents 1 point: Swollen legs (current) Other Risk Factors: Yes Each Risk Factor Represents 3 Points: Age 75 years or older Thrombosis Risk Factor Assessment Total Risk Factor Score: 4 Thrombosis Risk Factor Assessment Level: Moderate Risk Assessment and Plan (1) Abscess, groin Current Visit: Yes Status: Acute Code(s): L02.214 - CUTANEOUS ABSCESS OF GROIN SNOMED Code(s): 02049743 Plan: Groin abscess - ID consults - empiric vancomycin, Rocephin and ceftriaxone - culture mod gram + cocci, few gram bacilli - surgical consult for I+D - NS given Chronic medical conditions # hypothyroidism - continue home med #hyperlipidemia - continue home med
[2023-12-30] MEDS: polyethylene glycoL 3350 17 GM POWD.PACK PO SCH (14:31)
[2023-12-30] MEDS: hydrOXYzine pamoate 25 MG CAP PO PRN (15:45)
[2023-12-30] MEDS: LEVOTHYROXINE 75 MCG TAB PO SCH (15:50)
[2023-12-30] MEDS: DOCUSATE 100 MG CAP PO SCH (21:24)
[2023-12-31 08:48] LABS: African American GFR (CKD) 90 (>60 ml/min/1.73 sqM); Non-African American GFR(CKD) 78 (>60 ml/min/1.73 sqM)
--- NOTE | 2023-12-31 10:11 | P.PN ---
Subjective Progress Note Date: 12/31/23 Principal diagnosis: Groin Abscess Luis Allen 88 y.o M w/ PMH of hypertension, hyperlipidemia reflux, squamous cell carcinoma status postradiation and chemo and right jaw osteomyelitis presents w/ groin abscess. Patient describes a 6 month hx of worsening groin abscess. Abscess is located on the right proximal medial groin area. He describes worsen pain and erythema recently. Denies significant drainage. Currently he reports absence of fever, chills. 12-31-23 - Patient seen at bedside, no events overnight. He is well, I+D performed. Patient report swelling progressively decreasing. He denies fever, chills and pain. REVIEW OF SYSTEMS: CONSTITUTIONAL: No fever, no malaise, no fatigue. CARDIOVASCULAR: No chest pain, orthopnea, PND, no palpitations, no syncope. PULMONARY: No shortness of breath, no cough, no hemoptysis. GASTROINTESTINAL: No diarrhea, no nausea, no vomiting, no abdominal pain. HEMATOLOGICAL: Denies any bleeding or petechiae. PHYSICAL EXAMINATION: GENERAL: The patient is alert and oriented x3, not in any acute distress. Well developed, well nourished. HEENT: Pupils are round and equally reacting to light. EOMI. No scleral icterus. No conjunctival pallor. Normocephalic, atraumatic. No pharyngeal erythema. No thyromegaly. CARDIOVASCULAR: S1 and S2 present. No murmurs, rubs, or gallops. PULMONARY: Chest is clear to auscultation, no wheezing or crackles. ABDOMEN: Soft, nontender, nondistended, normoactive bowel sounds. No palpable or ganomegaly. MUSCULOSKELETAL: No joint swelling or deformity. EXTREMITIES: No cyanosis, clubbing, or pedal edema. NEUROLOGICAL: Gross neurological examination did not reveal any focal deficits. SKIN: No rashes. Assessment and plan Groin abscess - empiric vancomycin, Rocephin and ceftriaxone per surgery - culture mod gram + cocci, few gram bacilli - I+D performed at bedside - ID consulted Chronic medical conditions # hypothyroidism - continue home med #hyperlipidemia - continue home med Objective - Vital Signs Vital signs: Vital Signs Temp 98.3 F 12/31/23 07:24 Pulse 67 12/31/23 07:24 Resp 17 12/31/23 07:24 BP 154/71 12/31/23 07:24 Pulse Ox 94 L 07/03/24 07:24 FiO2 Intake & Output 12/30/23 12/31/23 12/31/23 18:59 06:59 18:59 Intake Total 1530 Output Total 3300 0 Balance -1769 -2049 Intake: Intake, IV Titration 1050 Amount Sodium Chloride 0.9% 1, 750 000 ml @ 75 mls/hr IV . [id number] [facility] Rx#:[id number] Vancomycin 1,250 mg In 250 Sodium Chloride 0.9% 250 ml @ 125 mls/hr IVPB Q24HR [facility] Rx#:[id number] cefTRIAXone 2 gm In 50 Sodium Chloride 0.9% 50 ml @ 100 mls/hr IVPB Q24HR [facility] Rx#:[id number] Oral 480 Output: Urine 3300 2049 Coude 1000 Other: Voiding Method Indwelling Catheter Indwelling Catheter # Bowel Movements 1 - Labs CBC & Chem 7: 12/29/23 13:10 12/31/23 08:18 Labs: Microbiology - Last 24 Hours (Table) 12/29/23 13:18 Blood Culture - Preliminary Blood 12/29/23 13:10 Blood Culture - Preliminary Blood 12/29/23 13:18 Gram Stain - Preliminary Groin Wound Culture - Preliminary Assessment and Plan (1) Abscess, groin Current Visit: Yes Status: Acute Code(s): L02.214 - CUTANEOUS ABSCESS OF GROIN SNOMED Code(s): 44637021
--- NOTE | 2023-12-31 13:53 | P.PN ---
Subjective Progress Note Date: 12/31/23 CHIEF COMPLAINT: Right groin abscess HISTORY OF PRESENT ILLNESS: Patient is postop day #1 status post bedside incision and drainage of right groin abscess. Patient reports his pain is improving. The abscess is still draining. Afebrile. Cultures pending. Patient did have 2 bowel movements yesterday. PHYSICAL EXAM: VITAL SIGNS: Reviewed. GENERAL: no acute distress. ABDOMEN: Soft. Nondistended. Right groin abscess still draining. small area of induration ASSESSMENT: 1. Right groin abscess status post bedside I&D 2. Constipation PLAN: -Continue antibiotics per infectious disease -Continue good bowel regimen. MiraLAX and Colace added yesterday -Surgical service will sign off. Please call with any questions or concerns Physician Grading Machine Feeder note has been reviewed by physician. Signing provider agrees with the documented findings, assessment, and plan of care. Objective - Vital Signs Vital signs: Vital Signs Temp 98.5 F 12/31/23 12:39 Pulse 69 12/31/23 12:39 Resp 17 12/31/23 12:39 BP 108/57 12/31/23 12:39 Pulse Ox 100 12/31/23 12:39 FiO2 Intake & Output 12/30/23 12/31/23 12/31/23 18:59 06:59 18:59 Intake Total 1530 598 Output Total 3300 2050 1800 Balance -1770 -2049 -1202 Intake: Intake, IV Titration 1050 Amount Sodium Chloride 0.9% 1, 750 000 ml @ 75 mls/hr IV . [id number] [facility] Rx#:[id number] Vancomycin 1,250 mg In 250 Sodium Chloride 0.9% 250 ml @ 125 mls/hr IVPB Q24HR [facility] Rx#:[id number] cefTRIAXone 2 gm In 50 Sodium Chloride 0.9% 50 ml @ 100 mls/hr IVPB Q24HR [facility] Rx#:[id number] Oral 480 598 Output: Urine 3300 2050 1800 Coude 1000 1800 Other: Voiding Method Indwelling Catheter Indwelling Catheter Indwelling Catheter # Bowel Movements 1 - Labs CBC & Chem 7: 12/29/23 13:10 12/31/23 08:18 Labs: Microbiology - Last 24 Hours (Table) 12/29/23 13:18 Gram Stain - Final Groin Wound Culture - Final 12/30/23 11:50 Gram Stain - Preliminary Groin Wound Culture - Preliminary 12/29/23 13:18 Blood Culture - Preliminary Blood 12/29/23 13:10 Blood Culture - Preliminary Blood
--- NOTE | 2023-12-31 15:25 | CT ---
EXAMINATION TYPE: CT facial bones wo con CT DLP: 674 mGycm, Automated exposure control for dose reduction was used. DATE OF EXAM: 12/31/2023 3:10 PM COMPARISON: 05/03/2023. CLINICAL INDICATION:Male, 88 years old with history of abcess rt face; PHH, abscess rt side face TECHNIQUE: Multiple unenhanced axial CT images were obtained of the facial bones soft tissue and bone windows. Coronal, axial and sagittal reformatted images were also provided in soft tissue and bone windows and submitted for interpretation. Additional 3-D reformatted images were obtained on a [employer] workstation. . Contrast used: mL of , (none if empty) Oral contrast used: (none if empty) FINDINGS: Redemonstration of extensive fat stranding changes around the right mandible with osseous destruction with cortical breakthrough and a mottled appearance to the right mandible osseous structures. There is soft tissue edema surrounding the right face centered around the osseous erosion. Destructive shell ges with possible fracture through the mandible on the right are present. Previous organizing fluid collection within the right masseter muscle is no longer visualized. Atherosclerosis of the bilateral carotid bifurcation secondary to predominantly noncalcified plaque i n the left up to Bilaterally aphakia. Anterior cranial portions of the exam are unremarkable. There is nonvisualization of the right vertebral artery with reconstitution near its confluence. Bilaterally aphakia. IMPRESSION: 1. Progression of extensive abnormality to the right mandible with osseous erosion. Suspected superi mposed fracture present. No organizing fluid collection definitively visualized on today's exam. Reso lution of prior intramuscularly abscess of the right masseter muscle. Findings suggestive of osteomye litis. 2. Atherosclerosis of the bilateral carotid bifurcation.
--- NOTE | 2023-12-31 15:50 | P.PN ---
Subjective Progress Note Date: 12/31/23 Principal diagnosis: Reason for follow-up is right groin abscess and possible osteomyelitis of the right jaw Patient is a 88-year-old male with a past medical history significant for hypertension hyperlipidemia reflux, squamous cell carcinoma status postradiation and chemo and right jaw osteomyelitis with recent reopening of a sinus to the right upper jaw area empirically treated with oral Cipro by the PCP presented to the hospital right groin swelling redness has been diagnosed with possible abscess.Patient is status post right groin abscess drainage at the [facility] by general surgery on 12/30/2023. On today's evaluation that is 12/31/2023,the patient denies any fever or any chills, patient is breathing comfortably on room air, the patient denies chest pain shortness of breath and no significant cough, patient denies abdominal pain, no nausea vomiting or diarrhea.Patient denies any worsening pain to the right groin area he did have more drainage from his right upper jaw. Patient did have a creatinine 0.87 cultures currently pending Objective - Vital Signs Vital signs: Vital Signs Temp 98.5 F 12/31/23 12:39 Pulse 69 12/31/23 12:39 Resp 17 12/31/23 12:39 BP 108/57 12/31/23 12:39 Pulse Ox 100 12/31/23 12:39 FiO2 Intake & Output 12/30/23 12/31/23 12/31/23 18:59 06:59 18:59 Intake Total 1530 598 Output Total 3300 2050 1800 Balance -1770 -2049 -1202 Intake: Intake, IV Titration 1050 Amount Sodium Chloride 0.9% 1, 750 000 ml @ 75 mls/hr IV . [id number] [facility] Rx#:[id number] Vancomycin 1,250 mg In 250 Sodium Chloride 0.9% 250 ml @ 125 mls/hr IVPB Q24HR [facility] Rx#:[id number] cefTRIAXone 2 gm In 50 Sodium Chloride 0.9% 50 ml @ 100 mls/hr IVPB Q24HR [facility] Rx#:[id number] Oral 480 598 Output: Urine 3300 2050 1800 Coude 1000 1800 Other: Voiding Method Indwelling Catheter Indwelling Catheter Indwelling Catheter # Bowel Movements 1 - Exam GENERAL DESCRIPTION: An elderly male lying in bed in no distress HEENT: Patient did have more purulent drainage from the right upper jaw area RESPIRATORY SYSTEM: Unlabored breathing , decreased breath sounds at bases HEART: S1 S2 regular rate and rhythm , ABDOMEN: Soft , no tenderness, right groin overall swelling redness has decreas ed EXTREMITIES: No edema feet - Labs CBC & Chem 7: 12/29/23 13:10 12/31/23 08:18 Labs: Microbiology - Last 24 Hours (Table) 12/29/23 13:18 Gram Stain - Final Groin Wound Culture - Final 12/30/23 11:50 Gram Stain - Preliminary Groin Wound Culture - Preliminary 12/29/23 13:18 Blood Culture - Preliminary Blood 12/29/23 13:10 Blood Culture - Preliminary Blood Assessment and Plan (1) Abscess, groin Current Visit: Yes Status: Acute Code(s): L02.214 - CUTANEOUS ABSCESS OF GROIN SNOMED Code(s): 13829380 (2) Osteomyelitis of mandible Current Visit: No Status: Acute Code(s): M27.2 - INFLAMMATORY CONDITIONS OF JAWS SNOMED Code(s): 324697080 (3) Allergy to sulfa drugs Current Visit: Yes Status: Acute Code(s): Z88.2 - ALLERGY STATUS TO SULFONAMIDES SNOMED Code(s): 77428185 Plan: 1patient presented to the hospital with increasing pain swelling to the right groin area and this patient apparently did have a swelling for almost 6 months is slightly concerning keeping in mind his history of squamous cell carcinoma to the head and neck area, patient benefit from surgical drainage as well as biopsy for pathology and cultures for microbiological diagnosis 2-patient also have 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 please excuse any grammatical, word or spelling errors. Time with Patient: Greater than 30
[2023-12-31] MEDS: NYSTATIN 100,000 UNIT/GM POWD 15 GM TOPICAL SCH (17:29)
[2024-01-01 07:57] LABS: ALT 13 U/L (4-49); African American GFR (CKD) 89 (>60 ml/min/1.73 sqM); Albumin 3.3 g/dL (3.5-5.0); Albumin/Globulin Ratio 1.2; Anion Gap 6 mmol/L; Blood Urea Nitrogen 10 mg/dL (9-20); C Reactive Protein 4.3 mg/dL (<1.0); Calcium 8.9 mg/dL (8.4-10.2); Carbon Dioxide 27 mmol/L (22-30); Chloride 106 mmol/L (98-107); Globulin 2.7 g/dL; Glucose 85 mg/dL (74-99); Non-African American GFR(CKD) 77 (>60 ml/min/1.73 sqM); Sodium 139 mmol/L (137-145); Total Bilirubin 0.4 mg/dL (0.2-1.3)
[2024-01-01 08:01] LABS: AST 25 U/L (17-59); Alkaline Phosphatase 73 U/L (38-126); Potassium 5.1 mmol/L (3.5-5.1)
--- NOTE | 2024-01-01 10:11 | P.PN ---
Subjective Progress Note Date: 01/01/24 Principal diagnosis: Groin Abscess Luis Allen 88 y.o M w/ PMH of hypertension, hyperlipidemia reflux, squamous cell carcinoma status postradiation and chemo and right jaw osteomyelitis presents w/ groin abscess. Patient describes a 6 month hx of worsening groin abscess. Abscess is located on the right proximal medial groin area. He describes worsen pain and erythema recently. Denies significant drainage. Currently he reports absence of fever, chills. 12-31-23 - Patient seen at bedside, no events overnight. He is well, I+D performed. Patient report swelling progressively decreasing. He denies fever, chills and pain. 01-01-24 - Patient seen at bedside, no events overnight. Patient is post op day #2. Patient reports swelling progressively decreasing. Mild pain in groin and jaw. Good BM. He denies fever, chills. REVIEW OF SYSTEMS: CONSTITUTIONAL: No fever, no malaise, no fatigue. CARDIOVASCULAR: No chest pain, orthopnea, PND, no palpitations, no syncope. PULMONARY: No shortness of breath, no cough, no hemoptysis. GASTROINTESTINAL: No diarrhea, no nausea, no vomiting, no abdominal pain. HEMATOLOGICAL: Denies any bleeding or petechiae. PHYSICAL EXAMINATION: GENERAL: The patient is alert and oriented x3, not in any acute distress. Well developed, well nourished. HEENT: Pupils are round and equally reacting to light. EOMI. No scleral icterus. No conjunctival pallor. Normocephalic, atraumatic. No pharyngeal erythema. No thyromegaly. CARDIOVASCULAR: S1 and S2 present. No murmurs, rubs, or gallops. PULMONARY: Chest is clear to auscultation, no wheezing or crackles. ABDOMEN: Soft, nontender, nondistended, normoactive bowel sounds. No palpable organomegaly. MUSCULOSKELETAL: No joint swelling or deformity. EXTREMITIES: No cyanosis, clubbing, or pedal edema. NEUROLOGICAL: Gross neurological examination did not reveal any focal deficits. SKIN: No rashes. Assessment and plan Groin abscess - IV Rocephin and vancomycin per ID - Final wound culture with mod gram + cocci, mod polymorphonuclear leukocytes and few gram - bacilli - I+D performed at bedside - ID following Osteomyelitis of jaw - CT scan showed evidence of osteomyelitis - awaiting cultures to narrow abx treatment - Continue abx regiment - ID following Chronic medical conditions # hypothyroidism - continue home med #hyperlipidemia - continue home med Attestation I have seen and examined this patient with my resident , discussed the same with the resident/LIZ, and agree with the dictator's assessment and plan as written ,documented as a scribe. CT scan of face reviewed, wound cultures pending. Continue current IV antibiotics. ID following Dr. Jasson spangler Objective - Vital Signs Vital signs: Vital Signs Temp 98.7 F 01/01/24 01:23 Pulse 80 01/01/24 01:23 Resp 20 01/01/24 01:23 BP 126/64 01/01/24 01:23 Pulse Ox 98 01/01/24 01:23 FiO2 Intake & Output 12/31/23 01/01/24 01/01/24 18:59 06:59 18:59 Intake Total 1078 Output Total 3100 2100 Balance -2021 -2099 Intake: Oral 1078 Output: Urine 3100 2100 Coude 3100 Other: Voiding Method Indwelling Catheter Indwelling Catheter - Labs CBC & Chem 7: 01/01/24 06:37 01/01/24 06:37 Labs: Microbiology - Last 24 Hours (Table) 12/30/23 17:58 Gram Stain - Preliminary Face 12/29/23 13:18 Blood Culture - Preliminary Blood 12/29/23 13:10 Blood Culture - Preliminary Blood 12/29/23 13:18 Gram Stain - Final Groin Wound Culture - Final 12/30/23 11:50 Gram Stain - Preliminary Groin Wound Culture - Preliminary Assessment and Plan (1) Abscess, groin Current Visit: Yes Status: Acute Code(s): L02.214 - CUTANEOUS ABSCESS OF GROIN SNOMED Code(s): 16162684 (2) Osteomyelitis of mandible Current Visit: Yes Status: Acute Code(s): M27.2 - INFLAMMATORY CONDITIONS OF JAWS SNOMED Code(s): 976298411 Plan: Groin abscess - ID consults - empiric vancomycin, Rocephin and ceftriaxone - culture mod gram + cocci, few gram bacilli - surgical consult for I+D - NS given Chronic medical conditions # hypothyroidism - continue home med #hyperlipidemia - continue home med
[2024-01-01 11:01] LABS: Basophils # (A) 0.02 X 10*3/uL (0.00-0.10); Basophils % (A) 0.3 %; Eosinophils # (A) 0.39 X 10*3/uL (0.04-0.35); HGB 11.2 g/dL (13.0-17.0); Lymphocytes # (A) 1.64 X 10*3/uL (0.90-5.00); Lymphocytes % (A) 25.4 %; MCH 30.7 pg (27.0-32.0); MCHC 31.1 g/dL (32.0-37.0); MCV 98.6 FL (80.0-97.0); Mean Platelet Volume 10.5 FL (9.5-12.2); Monocytes # (A) 0.42 X 10*3/uL (0.20-1.00); Monocytes % (A) 6.5 %; NRBC Per 100 WBC 0 X 10*3/uL (0.00-0.01); Neutrophils # (A) 3.97 X 10*3/uL (1.80-7.70); Neutrophils % (A) 61.5 %; Platelet Count 202 X 10*3/uL (140-440); RBC 3.65 X 10*6/uL (4.40-5.60); RDW 14.4 % (11.5-14.5); WBC 6.46 X 10*3/uL (4.50-10.00)
[2024-01-02 09:25] LABS: African American GFR (CKD) >90 (>60 ml/min/1.73 sqM); Non-African American GFR(CKD) 78 (>60 ml/min/1.73 sqM)
--- NOTE | 2024-01-02 10:04 | P.PN ---
Subjective Progress Note Date: 01/01/24 Principal diagnosis: Reason for follow-up is right groin abscess and possible osteomyelitis of the right jaw Patient is a 88-year-old male with a past medical history significant for hypertension hyperlipidemia reflux, squamous cell carcinoma status postradiation and chemo and right jaw osteomyelitis with recent reopening of a sinus to the right upper jaw area empirically treated with oral Cipro by the PCP presented to the hospital right groin swelling redness has been diagnosed with possible abscess.Patient is status post right groin abscess drainage at the [facility] by general surgery on 12/30/2023. On today's evaluation that is 01/01/2024,the patient remains to be afebrile, patient is on room air not requiring supplemental oxygen and denies any shortness of breath no chest pain or cough.Patient denies having any nausea or vomiting, no abdominal pain and no diarrhea still have drainage from the right upper jaw wound but no significant pain or any worsening pain to the right groin. Patient white count is 6.46, creatinine 0.89 cultures currently pending Objective - Vital Signs Vital signs: Vital Signs Temp 98.3 F 01/01/24 07:20 Pulse 80 01/01/24 07:20 Resp 16 01/01/24 07:20 BP 135/77 01/01/24 07:20 Pulse Ox 96 01/01/24 07:20 FiO2 Intake & Output 12/31/23 01/01/24 01/01/24 18:59 06:59 18:59 Intake Total 1078 480 Output Total 3100 2100 700 Balance -2021 Intake: Oral 1078 480 Output: Urine 3100 2100 700 Coude 3100 700 Other: Voiding Method Indwelling Catheter Indwelling Catheter Indwelling Catheter - Exam GENERAL DESCRIPTION: An elderly male lying in bed in no distress HEENT: Patient did have more purulent drainage from the right upper jaw area RESPIRATORY SYSTEM: Unlabored breathing , decreased breath sounds at bases HEART: S1 S2 regular rate and rhythm , ABDOMEN: Soft , no tenderness, right groin overall swelling redness has decreased EXTREMITIES: No edema feet - Labs CBC & Chem 7: 01/01/24 06:37 01/02/24 08:48 Labs: Abnormal Lab Results - Last 24 Hours (Table) 01/01/24 01/01/24 Range/Units 06:37 06:37 RBC 3.65 L (4.40-5.60) X 10*6/uL Hgb 11.2 L (13.0-17.0) g/dL Hct 36.0 L (39.6-50.0) % MCV 98.6 H (80.0-97.0) FL MCHC 31.1 L (32.0-37.0) g/dL Eosinophils # 0.39 H (0.04-0.35) X 10*3/uL C-Reactive Protein 4.3 H (<1.0) mg/dL Total Protein 6.0 L (6.3-8.2) g/dL Albumin 3.3 L (3.5-5.0) g/dL Microbiology - Last 24 Hours (Table) 12/30/23 11:50 Anaerobic Culture - Preliminary Groin 12/30/23 11:50 Gram Stain - Preliminary Groin Wound Culture - Preliminary 12/30/23 17:58 Gram Stain - Preliminary Face Wound Culture - Preliminary 12/29/23 13:18 Blood Culture - Preliminary Blood 12/29/23 13:10 Blood Culture - Preliminary Blood 12/29/23 13:18 Gram Stain - Final Groin Wound Culture - Final Assessment and Plan (1) Abscess, groin Current Visit: Yes Status: Acute Code(s): L02.214 - CUTANEOUS ABSCESS OF GROIN SNOMED Code(s): 64477685 (2) Osteomyelitis of mandible Current Visit: Yes Status: Acute Code(s): M27.2 - INFLAMMATORY CONDITIONS OF JAWS SNOMED Code(s): 705508461 (3) Allergy to sulfa drugs Current Visit: Yes Status: Acute Code(s): Z88.2 - ALLERGY STATUS TO SULFONAMIDES SNOMED Code(s): 05696310 Plan: 1patient presented to the hospital with increasing pain swelling to the right groin area and this patient apparently did have a swelling for almost 6 months is slightly concerning keeping in mind his history of squamous cell carcinoma to the head and neck area, patient benefit from surgical drainage as well as biopsy for pathology and cultures for microbiological diagnosis 2-patient also have a 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 please excuse any grammatical, word or spelling errors.
[2024-01-02] MEDS: VANCOMYCIN TROUGH DUE 1 EACH MISC MISCELLANE ONE (10:18)
--- NOTE | 2024-01-02 10:38 | P.PN ---
Subjective Progress Note Date: 01/02/24 Principal diagnosis: Groin Abscess Luis Allen 88 y.o M w/ PMH of hypertension, hyperlipidemia reflux, squamous cell carcinoma status postradiation and chemo and right jaw osteomyelitis presents w/ groin abscess. Patient describes a 6 month hx of worsening groin abscess. Abscess is located on the right proximal medial groin area. He describes worsen pain and erythema recently. Denies significant drainage. Currently he reports absence of fever, chills. 24 - Patient seen at bedside, no events overnight. He is well, I+D performed. Patient report swelling progressively decreasing. He denies fever, chills and pain. 24 - Patient seen at bedside, no events overnight. Patient is post op day #2. Patient reports swelling progressively decreasing. Mild pain in groin and jaw. Good BM. He denies fever, chills. 24 - Patient seen at bedside, no events overnight. Patient is post op day #3. Patient reports burning sensation with groin wound. Mild pain in groin and jaw pain. He denies fever, chills. Awaiting cultures. REVIEW OF SYSTEMS: CONSTITUTIONAL: No fever, no malaise, no fatigue. CARDIOVASCULAR: No chest pain, orthopnea, PND, no palpitations, no syncope. PULMONARY: No shortness of breath, no cough, no hemoptysis. GASTROINTESTINAL: No diarrhea, no nausea, no vomiting, no abdominal pain. HEMATOLOGICAL: Denies any bleeding or petechiae. PHYSICAL EXAMINATION: GENERAL: The patient is alert and oriented x3, not in any acute distress. Well developed, well nourished. HEENT: Pupils are round and equally reacting to light. EOMI. No scleral icterus. No conjunctival pallor. Normocephalic, atraumatic. No pharyngeal erythema. No thyromegaly. CARDIOVASCULAR: S1 and S2 present. No murmurs, rubs, or gallops. PULMONARY: Chest is clear to auscultation, no wheezing or crackles. ABDOMEN: Soft, nontender, nondistended, normoactive bowel sounds. No palpable organomegaly. MUSCULOSKELETAL: No joint swelling or deformity. EXTREMITIES: No cyanosis, clubbing, or pedal edema. NEUROLOGICAL: Gross neurological examination did not reveal any focal deficits. SKIN: No rashes. Assessment and plan Groin abscess - IV Rocephin and vancomycin per ID day #5 - final wound culture with mod gram + cocci, mod polymorphonuclear leukocytes and few gram - bacilli - I+D performed at bedside - start Nystatin powder given for groin irritation - ID following Chronic osteomyelitis of jaw - CT scan showed evidence of osteomyelitis - awaiting cultures to narrow abx treatment - Continue abx regiment day #5 - ID following Chronic medical conditions # hypothyroidism - continue home med #hyperlipidemia - continue home med Attestation I have seen and examined this patient with my resident , discussed the same with the resident/LIZ, and agree with the dictator's assessment and plan as written Dr. Jasson spangler Objective - Vital Signs Vital signs: Vital Signs Temp 98.5 F 01/02/24 07:27 Pulse 79 01/02/24 07:27 Resp 17 01/02/24 07:27 BP 154/77 01/02/24 07:27 Pulse Ox 97 01/02/24 07:27 FiO2 Intake & Output 01/01/24 01/02/24 01/02/24 18:59 06:59 18:59 Intake Total 2760 Output Total 2600 2900 Balance 160 -2900 Intake: Oral 2760 Output: Urine 2600 2900 Coude 700 Other: Voiding Method Indwelling Catheter Indwelling Catheter Indwelling Catheter # Bowel Movements 1 - Labs CBC & Chem 7: 01/01/24 06:37 01/02/24 08:48 Labs: Abnormal Lab Results - Last 24 Hours (Table) 01/01/24 Range/Units 06:37 RBC 3.65 L (4.40-5.60) X 10*6/uL Hgb 11.2 L (13.0-17.0) g/dL Hct 36.0 L (39.6-50.0) % MCV 98.6 H (80.0-97.0) FL MCHC 31.1 L (32.0-37.0) g/dL Eosinophils # 0.39 H (0.04-0.35) X 10*3/uL Microbiology - Last 24 Hours (Table) 12/29/23 13:18 Blood Culture - Preliminary Blood 12/29/23 13:10 Blood Culture - Preliminary Blood 12/30/23 11:50 Anaerobic Culture - Preliminary Groin 12/30/23 11:50 Gram Stain - Preliminary Groin Wound Culture - Preliminary 12/30/23 17:58 Gram Stain - Preliminary Face Wound Culture - Preliminary Assessment and Plan (1) Abscess, groin Current Visit: Yes Status: Acute Code(s): L02.214 - CUTANEOUS ABSCESS OF GROIN SNOMED Code(s): 81631270 (2) Osteomyelitis of mandible Current Visit: Yes Status: Acute Code(s): M27.2 - INFLAMMATORY CONDITIONS OF JAWS SNOMED Code(s): 214010551
--- NOTE | 2024-01-02 13:21 | P.PN ---
Subjective Progress Note Date: 01/02/24 Principal diagnosis: Reason for follow-up is right groin abscess and possible osteomyelitis of the right jaw Patient is a 88-year-old male with a past medical history significant for hypertension hyperlipidemia reflux, squamous cell carcinoma status postradiation and chemo and right jaw osteomyelitis with recent reopening of a sinus to the right upper jaw area empirically treated with oral Cipro by the PCP presented to the hospital right groin swelling redness has been diagnosed with possible abscess.Patient is status post right groin abscess drainage at the [facility] by general surgery on 12/30/2023. On today's evaluation that is 01/02/2024, the patient continues to be afebrile, the patient is on room air and breathing comfortably, the Pt denies having any chest pain or cough, the patient denies having any abdominal pain no vomiting or any diarrhea has been having some discomfort to the right in the groin area also complaining of some diarrhea. Patient did have a creatinine 0.85 Vanco trough was 12.6 cultures currently pending Objective - Vital Signs Vital signs: Vital Signs Temp 98.5 F 01/02/24 07:27 Pulse 79 01/02/24 07:27 Resp 17 01/02/24 07:27 BP 154/77 01/02/24 07:27 Pulse Ox 97 01/02/24 07:27 FiO2 Intake & Output 01/01/24 01/02/24 01/02/24 18:59 06:59 18:59 Intake Total 2760 Output Total 2600 2900 Balance 160 -2900 Intake: Oral 2760 Output: Urine 2600 2900 Coude 700 Other: Voiding Method Indwelling Catheter Indwelling Catheter Indwelling Catheter # Bowel Movements 1 1 - Exam GENERAL DESCRIPTION: An elderly male lying in bed in no distress HEENT: Patient did have more purulent drainage from the right upper jaw area RESPIRATORY SYSTEM: Unlabored breathing , decreased breath sounds at bases HEART: S1 S2 regular rate and rhythm , ABDOMEN: Soft , no tenderness, right groin overall swelling redness has decreased EXTREMITIES: No edema feet - Labs CBC & Chem 7: 01/01/24 06:37 01/02/24 08:48 Labs: Abnormal Lab Results - Last 24 Hours (Table) 01/01/24 Range/Units 06:37 RBC 3.65 L (4.40-5.60) X 10*6/uL Hgb 11.2 L (13.0-17.0) g/dL Hct 36.0 L (39.6-50.0) % MCV 98.6 H (80.0-97.0) FL MCHC 31.1 L (32.0-37.0) g/dL Eosinophils # 0.39 H (0.04-0.35) X 10*3/uL Microbiology - Last 24 Hours (Table) 12/29/23 13:18 Blood Culture - Preliminary Blood 12/29/23 13:10 Blood Culture - Preliminary Blood 12/30/23 11:50 Anaerobic Culture - Preliminary Groin 12/30/23 11:50 Gram Stain - Preliminary Groin Wound Culture - Preliminary 12/30/23 17:58 Gram Stain - Preliminary Face Wound Culture - Preliminary Assessment and Plan (1) Abscess, groin Current Visit: Yes Status: Acute Code(s): L02.214 - CUTANEOUS ABSCESS OF GROIN SNOMED Code(s): 64265971 (2) Osteomyelitis of mandible Current Visit: Yes Status: Acute Code(s): M27.2 - INFLAMMATORY CONDITIONS OF JAWS SNOMED Code(s): 052361562 (3) Allergy to sulfa drugs Current Visit: Yes Status: Acute Code(s): Z88.2 - ALLERGY STATUS TO SULFONAMIDES SNOMED Code(s): 58346217 Plan: 1patient presented to the hospital with increasing pain swelling to the right groin area and this patient apparently did have a swelling for almost 6 months is slightly concerning keeping in mind his history of squamous cell carcinoma to the head and neck area, patient benefit from surgical drainage as well as biopsy for pathology and cultures for microbiological diagnosis 2-patient also have a 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 due to pain and culture which are pending with high suspicious for osteomyelitis patient did have a CT did not show any pocket of abscess there was suspicious for bony destruction and osteomyelitis 3-patient did have bedside drainage of the right groin abscess" culture currently pending 4-patient to continue with Rocephin and vancomycin while waiting for the culture to finalize to determine his discharge antibiotics more likely oral keeping in mind chronicity of his osteomyelitis to the right jaw will benefit from a more chronic suppressive antibiotic therapy will discuss further with the as she was not at the bedside today at the time of evaluation Dictation was produced using [employer] software. please excuse any grammatical, word or spelling errors. Time with Patient: Less than 30
[2024-01-02] MEDS: NYSTATIN 100,000 UNIT/GM POWD 15 GM TOPICAL SCH (15:53)
--- NOTE | 2024-01-03 07:35 | P.PN ---
Subjective Progress Note Date: 01/03/24 Principal diagnosis: Groin Abscess Luis Allen 88 y.o M w/ PMH of hypertension, hyperlipidemia reflux, squamous cell carcinoma status postradiation and chemo and right jaw osteomyelitis presents w/ groin abscess. Patient describes a 6 month hx of worsening groin abscess. Abscess is located on the right proximal medial groin area. He describes worsen pain and erythema recently. Denies significant drainage. Currently he reports absence of fever, chills. 24 - Patient seen at bedside, no events overnight. He is well, I+D performed. Patient report swelling progressively decreasing. He denies fever, chills and pain. 24 - Patient seen at bedside, no events overnight. Patient is post op day #2. Patient reports swelling progressively decreasing. Mild pain in groin and jaw. Good BM. He denies fever, chills. 24 - Patient seen at bedside, no events overnight. Patient is post op day #3. Patient reports burning sensation with groin wound. Mild pain in groin and jaw pain. He denies fever, chills. Awaiting cultures. 24 - Patient seen at bedside, no events overnight. Patient is post op day #4. Mild pain in groin and jaw pain. He denies fever, chills. Jaw culture resulted, awaiting anaerobic final cultures. REVIEW OF SYSTEMS: CONSTITUTIONAL: No fever, no malaise, no fatigue. CARDIOVASCULAR: No chest pain, orthopnea, PND, no palpitations, no syncope. PULMONARY: No shortness of breath, no cough, no hemoptysis. GASTROINTESTINAL: No diarrhea, no nausea, no vomiting, no abdominal pain. HEMATOLOGICAL: Denies any bleeding or petechiae. PHYSICAL EXAMINATION: GENERAL: The patient is alert and oriented x3, not in any acute distress. Well developed, well nourished. HEENT: Pupils are round and equally reacting to light. EOMI. No scleral icterus. No conjunctival pallor. Normocephalic, atraumatic. No pharyngeal erythema. No thyromegaly. CARDIOVASCULAR: S1 and S2 present. No murmurs, rubs, or gallops. PULMONARY: Chest is clear to auscultation, no wheezing or crackles. ABDOMEN: Soft, nontender, nondistended, normoactive bowel sounds. No palpable organomegaly. MUSCULOSKELETAL: No joint swelling or deformity. EXTREMITIES: No cyanosis, clubbing, or pedal edema. NEUROLOGICAL: Gross neurological examination did not reveal any focal deficits. SKIN: No rashes. Assessment and plan Groin abscess - IV Rocephin and vancomycin per ID day #6 - final wound culture with mod gram + cocci, mod polymorphonuclear leukocytes and few gram - bacilli - I+D performed at bedside - start Nystatin powder given for groin irritation - ID following Osteomyelitis of jaw - CT scan showed evidence of osteomyelitis - Cultures with normal donna, no organisms - Continue abx regiment day #6 - ID following Chronic medical conditions # hypothyroidism - continue home med #hyperlipidemia - continue home med Objective - Vital Signs Vital signs: Vital Signs Temp 97.3 F L 01/03/24 01:10 Pulse 83 01/03/24 01:10 Resp 20 01/03/24 01:10 BP 129/74 01/03/24 01:10 Pulse Ox 99 01/03/24 01:10 FiO2 Intake & Output 01/02/24 01/03/24 01/03/24 18:59 06:59 18:59 Intake Total 550 Output Total 19740 Balance -1425 -2200 Intake: Intake, IV Titration 550 Amount Vancomycin 1,500 mg In 500 Sodium Chloride 0.9% 500 ml 500 ml @ 167 mls/hr IVPB Q24HR [facility] Rx#: [id number] cefTRIAXone 2 gm In 50 Sodium Chloride 0.9% 50 ml @ 100 mls/hr IVPB Q24HR [facility] Rx#:[id number] Output: Urine 1974 2199 Other: Voiding Method Indwelling Catheter Indwelling Catheter # Bowel Movements 3 - Labs CBC & Chem 7: 01/01/24 06:37 01/02/24 08:48 Labs: Abnormal Lab Results - Last 24 Hours (Table) 01/02/24 Range/Units 08:48 ESR 71 H (0-20) mm/Hr Microbiology - Last 24 Hours (Table) 12/30/23 17:58 Gram Stain - Final Face Wound Culture - Final Assessment and Plan (1) Abscess, groin Current Visit: Yes Status: Acute Code(s): L02.214 - CUTANEOUS ABSCESS OF GROIN SNOMED Code(s): 77698100 (2) Osteomyelitis of mandible Current Visit: Yes Status: Acute Code(s): M27.2 - INFLAMMATORY CONDITIONS OF JAWS SNOMED Code(s): 425053571
[2024-01-03 07:47] VITALS: RESP 16
[2024-01-03] MEDS: VANCOMYCIN 1,500 MG in SODIUM CHLORIDE 0.9% 500 ML 500 ML IVPB SCH (09:10)
[2024-01-03 09:25] LABS: Basophils % (A) 0 %; Eosinophils # (A) 0.4 k/uL (0-0.7); Eosinophils % (A) 5 %; HCT 38.3 % (39.0-53.0); HGB 11.9 gm/dL (13.0-17.5); Lymphocytes # (A) 1.3 k/uL (1.0-4.8); Lymphocytes % (A) 18 %; MCH 30.7 pg (25.0-35.0); MCHC 31.2 g/dL (31.0-37.0); MCV 98.4 fL (80.0-100.0); Monocytes # (A) 0.3 k/uL (0-1.0); Monocytes % (A) 4 %; Neutrophils # (A) 5.3 k/uL (1.3-7.7); Neutrophils % (A) 71 %; Platelet Count 259 k/uL (150-450); RBC 3.89 m/uL (4.30-5.90); RDW 13.6 % (11.5-15.5); WBC 7.5 k/uL (3.8-10.6)
[2024-01-03 09:35] LABS: African American GFR (CKD) >90 (>60 ml/min/1.73 sqM); Anion Gap 6 mmol/L; Blood Urea Nitrogen 9 mg/dL (9-20); Calcium 9.3 mg/dL (8.4-10.2); Carbon Dioxide 29 mmol/L (22-30); Chloride 104 mmol/L (98-107); Glucose 160 mg/dL (74-99); Non-African American GFR(CKD) 81 (>60 ml/min/1.73 sqM); Potassium 4.4 mmol/L (3.5-5.1); Sodium 139 mmol/L (137-145)
[2024-01-03 13:45] VITALS: BP 135/72; PULSE 81; TEMP 98
--- NOTE | 2024-01-03 14:12 | P.DS ---
Providers Date of admission: 12/29/23 17:58 Expected date of discharge: 01/03/24 Attending physician: Qamar Gagnon MD Consults: 12/29/23 17:55 Consult Physician Urgent Consulting Provider: Nikki Sheffield Consult Reason/Comments: Abscess groin Do you want consulting provider notified?: Yes Primary care physician: Irvin Sauceda - Discharge Diagnosis(es) (1) Abscess, groin Current Visit: Yes Status: Acute (2) Osteomyelitis of mandible Current Visit: Yes Status: Acute Hospital Course: Discharge diagnoses; Groin abscess - I+D performed at bedside - completed 6 day course of IV Rocephin and vancomycin - ID recommends Doxycycline and Ceftin course for 28 days Osteomyelitis of jaw - CT scan showed evidence of osteomyelitis - completed 6 day course of IV Rocephin and vancomycin - ID recommends Doxycycline and Ceftin course for 28 days Chronic medical conditions # hypothyroidism - continue home med #hyperlipidemia - continue home med Hospital course; Luis Allen 88 y.o M w/ PMH of hypertension, hyperlipidemia reflux, squamous cell carcinoma status postradiation and chemo and right jaw osteomyelitis presents w/ groin abscess. Patient describes a 6 month hx of worsening groin abscess. Abscess is located on the right proximal medial groin area. He describes worsen pain and erythema recently. Denies significant drainage. Currently he reports absence of fever, chills. 24 - Patient seen at bedside, no events overnight. He is well, I+D performed. Patient report swelling progressively decreasing. He denies fever, chills and pain. 24 - Patient seen at bedside, no events overnight. Patient is post op day #2. Patient reports swelling progressively decreasing. Mild pain in groin and jaw. Good BM. He denies fever, chills. 24 - Patient seen at bedside, no events overnight. Patient is post op day #3. Patient reports burning sensation with groin wound. Mild pain in groin and jaw pain. He denies fever, chills. Awaiting cultures. 24 - Patient seen at bedside, no events overnight. Patient is post op day #4. Mild pain in groin and jaw pain. He denies fever, chills. Jaw culture resulted. Discussed director of operations home health with , and planned with nurses. ID recommends d/c on oral antibiotics. PHYSICAL EXAMINATION: GENERAL: The patient is alert and oriented x3, not in any acute distress. Well developed, well nourished. HEENT: Pupils are round and equally reacting to light. EOMI. No scleral icterus. No conjunctival pallor. Normocephalic, atraumatic. No pharyngeal erythema. No thyromegaly. CARDIOVASCULAR: S1 and S2 present. No murmurs, rubs, or gallops. PULMONARY: Chest is clear to auscultation, no wheezing or crackles. ABDOMEN: Soft, nontender, nondistended, normoactive bowel sounds. No palpable organomegaly. MUSCULOSKELETAL: No joint swelling or deformity. EXTREMITIES: No cyanosis, clubbing, or pedal edema. NEUROLOGICAL: Gross neurological examination did not reveal any focal deficits. SKIN: as per HPI. Attestation I have seen and examined this patient with my resident , discussed the same with the resident/LIZ, and agree with the dictator's assessment and plan as written Being discharged on oral Ceftin and doxycycline for 28 days. Outpatient follow-up with ID Dr. Jasson spangler Dictation was produced using [employer] dictation software. please excuse any grammatical, word or spelling errors. Plan - Discharge Summary Discharge Rx Participant: No New Discharge Prescriptions: New cefUROXime axetiL [Ceftin] 500 mg PO BID 28 Days #56 tab Doxycycline [Vibramycin] 100 mg PO BID 28 Days #56 capsule Continue Atorvastatin [Lipitor] 10 mg PO HS Acetaminophen [Tylenol Extra Strength] 500 mg PO DAILY diphenhydrAMINE [Benadryl] 25 mg PO QID PRN PRN Reason: Allergy Symptoms Gabapentin [Neurontin] 600 mg PO HS hydrOXYzine pamoate 25 mg PO DAILY PRN PRN Reason: Anxiety/Allergies Calcium Carbonate [Tums] 500 mg PO TID PRN PRN Reason: Heartburn Carboxymethylcellulose Sodium [Thera Tears] 1 drop BOTH EYES TID PRN PRN Reason: Dry Eye(S) Azelastine HCl [Astepro] 2 spr EA NOSTRIL DAILY Levothyroxine Sodium [Synthroid] 75 mcg PO DAILY@1600 Multivitamins, Thera [Multivitamin (formulary)] 1 tab PO DAILY Gabapentin [Neurontin] 400 mg PO BID@1400,1800 Docusate [Colace] 100 mg PO DAILY Acetaminophen-Codeine 300-30mg [Tylenol w/codeine #3] 1 tab PO TID Coffee Xt/Phosphatidyl Serine [Neuriva Original 100-100Mg Cap] 1 cap PO DAILY@1600 Discontinued Ciprofloxacin HCl [Cipro] 750 mg PO DAILY Discharge Medication List Acetaminophen [Tylenol Extra Strength] 500 mg PO DAILY 05/28/17 [History] Atorvastatin [Lipitor] 10 mg PO HS 05/28/17 [History] Gabapentin [Neurontin] 600 mg PO HS 09/30/20 [History] diphenhydrAMINE [Benadryl] 25 mg PO QID PRN 09/30/20 [History] Acetaminophen-Codeine 300-30mg [Tylenol w/codeine #3] 1 tab PO TID 07/09/22 [ History] Azelastine HCl [Astepro] 2 spr EA NOSTRIL DAILY 07/09/22 [History] Calcium Carbonate [Tums] 500 mg PO TID PRN 07/09/22 [History] Carboxymethylcellulose Sodium [Thera Tears] 1 drop BOTH EYES TID PRN 07/09/22 [History] hydrOXYzine pamoate 25 mg PO DAILY PRN 07/09/22 [History] Coffee Xt/Phosphatidyl Serine [Neuriva Original 100-100Mg Cap] 1 cap PO DAILY@1600 12/29/23 [History] Docusate [Colace] 100 mg PO DAILY 12/29/23 [History] Gabapentin [Neurontin] 400 mg PO BID@1400,1800 12/29/23 [History] Levothyroxine Sodium [Synthroid] 75 mcg PO DAILY@1600 12/29/23 [History] Multivitamins, Thera [Multivitamin (formulary)] 1 tab PO DAILY 12/29/23 [History] Doxycycline [Vibramycin] 100 mg PO BID 28 Days #56 capsule 01/03/24 [Rx] cefUROXime axetiL [Ceftin] 500 mg PO BID 28 Days #56 tab 01/03/24 [Rx] Follow up Appointment(s)/Referral(s): Irvin Sauceda MD [Primary Care Provider] - 1-2 days Nikki Sheffield MD [STAFF PHYSICIAN] - 1 Week [facility] Visiting Nurse, [NON-STAFF] - 1-2 Days Discharge Disposition: HOME SELF-CARE
--- NOTE | 2024-01-03 14:38 | P.PN ---
Subjective Progress Note Date: 12/30/23 Principal diagnosis: Reason for follow-up is right groin abscess and possible osteomyelitis of the right jaw Patient is a 88-year-old male with a past medical history significant for hypertension hyperlipidemia reflux, squamous cell carcinoma status postradiation and chemo and right jaw osteomyelitis with recent reopening of a sinus to the right upper jaw area empirically treated with oral Cipro by the PCP presented to the hospital right groin swelling redness has been diagnosed with possible abscess. On today's evaluation that is 12/30/2023, Patient is afebrile this morning and denies any chills, patient mention breathing comfortably and is currently on room air, patient denies any chest pain occasional cough patient denies any abdominal pain no diarrhea no nausea no vomiting, denies any worsening pain to the right groin area. Patient did have a creatinine 0.88 no CBC was done today Objective - Vital Signs Vital signs: Vital Signs Temp 98.1 F 12/30/23 14:04 Pulse 66 12/30/23 14:04 Resp 16 12/30/23 14:04 BP 108/61 12/30/23 14:04 Pulse Ox 97 12/30/23 14:04 FiO2 Intake & Output 12/29/23 12/30/23 12/30/23 18:59 06:59 18:59 Intake Total 480 Output Total 1075 3000 Balance -1075 -2520 Weight 68.039 kg 68.039 kg Intake: Oral 480 Output: Urine 1075 3000 Coude 375 1000 Other: Voiding Method Indwelling Catheter Indwelling Catheter # Bowel Movements 1 - Exam GENERAL DESCRIPTION: An elderly male lying in bed in no distress RESPIRATORY SYSTEM: Unlabored breathing , decreased breath sounds at bases HEART: S1 S2 regular rate and rhythm , ABDOMEN: Soft , no tenderness EXTREMITIES: No edema feet - Labs CBC & Chem 7: 12/29/23 13:10 12/31/23 08:18 Labs: Microbiology - Last 24 Hours (Table) 12/29/23 13:18 Gram Stain - Preliminary Groin Wound Culture - Preliminary Assessment and Plan (1) Abscess, groin Current Visit: Yes Status: Acute Code(s): L02.214 - CUTANEOUS ABSCESS OF GROIN SNOMED Code(s): 26896949 (2) Osteomyelitis of mandible Current Visit: No Status: Acute Code(s): M27.2 - INFLAMMATORY CONDITIONS OF JAWS SNOMED Code(s): 053106277 (3) Allergy to sulfa drugs Current Visit: Yes Status: Acute Code(s): Z88.2 - ALLERGY STATUS TO SULFONAMIDES SNOMED Code(s): 11783508 Plan: 1patient presented to the hospital with increasing pain swelling to the right groin area and this patient apparently did have a swelling for almost 6 months is slightly concerning keeping in mind his history of squamous cell carcinoma to the head and neck area, patient benefit from surgical drainage as well as biopsy for pathology and cultures for microbiological diagnosis 2-patient also have 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 please excuse any grammatical, word or spelling errors.
--- NOTE | 2024-01-03 14:38 | P.PN ---
Subjective Progress Note Date: 01/03/24 Principal diagnosis: Reason for follow-up is right groin abscess and possible osteomyelitis of the right jaw Patient is a 88-year-old male with a past medical history significant for hypertension hyperlipidemia reflux, squamous cell carcinoma status postradiation and chemo and right jaw osteomyelitis with recent reopening of a sinus to the right upper jaw area empirically treated with oral Cipro by the PCP presented to the hospital right groin swelling redness has been diagnosed with possible abscess.Patient is status post right groin abscess drainage at the [facility] by general surgery on 12/30/2023. On today's evaluation that is 01/03/2024, Patient is afebrile patient is currently on room air and denies having any shortness of breath, the patient denies any chest pain or cough, the patient denies any nausea vomiting did not have any abdominal pain and no diarrhea, drainage from the right mandibular and right groin has decreased in intensity denies any worsening pain. Patient white count is 7.5 creatinine 0.79 culture has been negative so far Objective - Vital Signs Vital signs: Vital Signs Temp 98.1 F 01/03/24 07:10 Pulse 83 01/03/24 07:10 Resp 16 01/03/24 07:10 BP 148/77 01/03/24 07:10 Pulse Ox 99 01/03/24 07:10 FiO2 Intake & Output 01/02/24 01/03/24 01/03/24 18:59 06:59 18:59 Intake Total 720 Output Total 1974 Balance -1425 -2200 20 Intake: Intake, IV Titration 550 Amount Vancomycin 1,500 mg In 500 Sodium Chloride 0.9% 500 ml 500 ml @ 167 mls/hr IVPB Q24HR JERALD Rx#: [id number] cefTRIAXone 2 gm In 50 Sodium Chloride 0.9% 50 ml @ 100 mls/hr IVPB Q24HR JERALD Rx#:[id number] Oral 720 Output: Urine 1974 2199 700 Coude 700 Other: Voiding Method Indwelling Catheter Indwelling Catheter Indwelling Catheter # Bowel Movements 3 - Exam GENERAL DESCRIPTION: An elderly male lying in bed in no distress HEENT: Patient did have more purulent drainage from the right upper jaw area RESPIRATORY SYSTEM: Unlabored breathing , decreased breath sounds at bases HEART: S1 S2 regular rate and rhythm , ABDOMEN: Soft , no tenderness, right groin overall swelling redness has decreased EXTREMITIES: No edema feet - Labs CBC & Chem 7: 01/03/24 09:01 01/03/24 09:01 Labs: Abnormal Lab Results - Last 24 Hours (Table) 01/02/24 01/03/24 01/03/24 Range/Units 08:48 09:01 09:01 RBC 3.89 L (4.30-5.90) m/uL Hgb 11.9 L (13.0-17.5) gm/dL Hct 38.3 L (39.0-53.0) % ESR 71 H (0-20) mm/Hr Glucose 160 H (74-99) mg/dL Microbiology - Last 24 Hours (Table) 12/30/23 11:50 Anaerobic Culture - Final Groin 12/30/23 17:58 Gram Stain - Final Face Wound Culture - Final Assessment and Plan (1) Abscess, groin Current Visit: Yes Status: Acute Code(s): L02.214 - CUTANEOUS ABSCESS OF GROIN SNOMED Code(s): 60331942 (2) Osteomyelitis of mandible Current Visit: Yes Status: Acute Code(s): M27.2 - INFLAMMATORY CONDITIONS OF JAWS SNOMED Code(s): 456083720 (3) Allergy to sulfa drugs Current Visit: Yes Status: Acute Code(s): Z88.2 - ALLERGY STATUS TO SULFONAMIDES SNOMED Code(s): 67701891 Plan: 1patient presented to the hospital with increasing pain swelling to the right groin area and this patient apparently did have a swelling for almost 6 months is slightly concerning keeping in mind his history of squamous cell carcinoma to the head and neck area, patient benefit from surgical drainage as well as biopsy for pathology and cultures for microbiological diagnosis 2-patient also have a 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 due to pain and culture which are pending with high suspicious for osteomyelitis patient did have a CT did not show any pocket of abscess there was suspicious for bony destruction and osteomyelitis 3-patient did have bedside drainage of the right groin abscess" culture so far negative cultures from the right mandible area also negative 4-patient has shown clinical appointment on Rocephin and vancomycin we will consider finishing therapy with oral Ceftin and doxycycline keeping in mind the patient did have a chronic problem with his right jaw with chronic osteomyelitis IV antibiotic has been discussed with the however keeping in mind overall chronicity and no resistant organism growing in the culture we will consider oral Ceftin and doxycycline as suppressive antibiotics with close outpatient follow-up multiple questions were answered discussed with the admitting team Dictation was produced using [employer] software. please excuse any grammatical, word or spelling errors.
[2024-01-05] MEDS ORDERED: VANCOMYCIN TROUGH DUE 1 EACH MISC MISCELLANE ONE (08:00)
== END 2024-01-03 17:38 | disposition home or self-care (01) | DRG 581 ==
LOC: EC 12:30 → 5NMEDONC 17:58
PROVIDERS: ADMIT Internal Medicine; ATTEND Internal Medicine
PROC: 0Y950ZZ Drainage of Right Inguinal Region, Open Approach (ICD-10-PCS; principal; 2023-12-30)
DX: L02.214 Cutaneous abscess of groin (principal); Z88.2 Allergy status to sulfonamides; M27.2 Inflammatory conditions of jaws; B96.89 Other specified bacterial agents as the cause of diseases classified elsewhere; E03.9 Hypothyroidism, unspecified; E78.5 Hyperlipidemia, unspecified; Z79.890 Hormone replacement therapy; H91.90 Unspecified hearing loss, unspecified ear; I10 Essential (primary) hypertension; K21.9 Gastro-esophageal reflux disease without esophagitis; K59.00 Constipation, unspecified; Z92.21 Personal history of antineoplastic chemotherapy; Z92.3 Personal history of irradiation; Z87.891 Personal history of nicotine dependence; Z98.42 Cataract extraction status, left eye; Z98.41 Cataract extraction status, right eye; Z85.810 Personal history of malignant neoplasm of tongue; Z79.899 Other long term (current) drug therapy; Z90.49 Acquired absence of other specified parts of digestive tract
CPT/HCPCS: 36415; 70486; 72193; 80048; 80053; 80202; 82565; 83605; 85025; 85652; 86140; 87040; 87070; 87075; 87205; 96361; 96365; 96375; 99285

== ENCOUNTER 2024-05-19 13:38 | Emergency (ER) | payer MEDICARE, OTHER ==
[2024-05-19 13:45] VITALS: RESP 20; TEMP 97.4
[2024-05-19] MEDS: SODIUM CHLORIDE 0.9% 500 ML 500 ML IV STA (13:45)
[2024-05-19 14:05] LABS: Basophils % (A) 0 %; Eosinophils % (A) 0 %; HCT 38.7 % (39.0-53.0); HGB 12.5 gm/dL (13.0-17.5); Lymphocytes # (A) 3.5 k/uL (1.0-4.8); Lymphocytes % (A) 48 %; MCH 30.9 pg (25.0-35.0); MCHC 32.2 g/dL (31.0-37.0); MCV 95.9 fL (80.0-100.0); Mean Platelet Volume 7.6; Monocytes # (A) 0.2 k/uL (0-1.0); Monocytes % (A) 3 %; Neutrophils # (A) 3.4 k/uL (1.3-7.7); Neutrophils % (A) 47 %; Platelet Count 230 k/uL (150-450); RBC 4.04 m/uL (4.30-5.90); RDW 13.8 % (11.5-15.5); WBC 7.3 k/uL (3.8-10.6)
--- NOTE | 2024-05-19 14:06 | ED ---
General Adult HPI - General Chief complaint: Syncope Stated complaint: syncope Time Seen by Provider: 05/19/24 13:41 Source: patient, RN notes reviewed, old records reviewed Mode of arrival: ambulatory Limitations: no limitations - History of Present Illness Initial comments: 89-year-old male brought from outpatient CT for an episode of unresponsiveness, hypotension and bradycardia. Patient had apparently received CT with contrast and several minutes later felt lightheaded followed by syncopal episode. Patient was bradycardic and hypotensive when business support associate arrived on scene. By the time he presents to the emergency department he has returned to normal. He does have baseline dementia. He denies any complaints. He is alert and oriented at baseline. - Related Data Home Medications Medication Instructions Recorded Confirmed Acetaminophen [Tylenol Extra 500 mg PO BID@1000,1600 05/28/17 05/19/24 Strength] Atorvastatin [Lipitor] 10 mg PO HS 05/28/17 05/19/24 diphenhydrAMINE [Benadryl] 25 mg PO QID PRN 09/30/20 05/19/24 Acetaminophen-Codeine 300-30mg 1 tab PO HS 07/09/22 05/19/24 [Tylenol w/codeine #3] Azelastine HCl [Astepro] 2 spr EA NOSTRIL DAILY 07/09/22 05/19/24 Calcium Carbonate [Tums] 500 mg PO TID PRN 07/09/22 05/19/24 Carboxymethylcellulose Sodium 1 drop BOTH EYES DAILY PRN 07/09/22 05/19/24 [Thera Tears] Coffee Xt/Phosphatidyl Serine 1 cap PO DAILY@1600 12/29/23 05/19/24 [Neuriva Original 100-100Mg Cap] Gabapentin [Neurontin] 400 mg PO TID@1000,1600,2100 12/29/23 05/19/24 Levothyroxine Sodium [Synthroid] 75 mcg PO DAILY@1600 12/29/23 05/19/24 Donepezil [Aricept] 10 mg PO HS 05/19/24 05/19/24 hydrOXYzine HCL [Atarax] 25 mg PO TID PRN 05/19/24 05/19/24 Previous Rx's Medication Instructions Recorded Doxycycline [Vibramycin] 100 mg PO BID 28 Days #56 capsule 01/03/24 Allergies Allergy/AdvReac Type Severity Reaction Status Date / Time Sulfa (Sulfonamide Allergy Itching Verified 05/19/24 14:39 Antibiotics) Review of Systems ROS Statement: Those systems with pertinent positive or pertinent negative responses have been documented in the HPI. ROS Other: All systems not noted in ROS Statement are negative. 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 Past Anesthesia/Blood Transfusion Reactions: No Reported Reaction Past Psychological History: No Psychological Hx Reported Smoking Status: Former smoker Past Alcohol Use History: None Reported Past Drug Use History: None Reported - Past Family History Mother Family Medical History: Unable to Obtain Father Family Medical History: Unable to Obtain General Exam Limitations: no limitations General appearance: alert, in no apparent distress Head exam: Present: atraumatic, normocephalic Eye exam: Present: normal appearance, PERRL ENT exam: Present: normal exam Neck exam: Present: normal inspection Respiratory exam: Present: normal lung sounds bilaterally. Absent: respiratory distress, wheezes Cardiovascular Exam: Present: regular rate, normal rhythm GI/Abdominal exam: Present: soft. Absent: distended, tenderness Extremities exam: Present: normal inspection Neurological exam: Present: alert, oriented X3 Course Vital Signs 05/19/24 05/19/24 13:39 14:29 Temperature 97.4 F L Pulse Rate 92 72 Respiratory 20 20 Rate Blood Pressure 139/77 136/90 O2 Sat by Pulse 93 L 95 Oximetry Medical Decision Making - Medical Decision Making Was pt. sent in by a medical professional or institution (, PA, FURNISHINGS CONSERVATOR, urgent care, hospital, or retirement...) When possible be specific @ -No Did you speak to anyone other than the patient for history (EMS, parent, family, police, friend...)? What history was obtained from this source @ -Patient's is able to give a detailed history. Did you review nursing and triage notes (agree or disagree)? Why? @ -I reviewed and agree with nursing and triage notes Were old charts reviewed (outside hosp., previous admission, EMS record, old EKG, old radiological studies, urgent care reports/EKG's, retirement records)? Report findings @ -No old charts were reviewed Differential Syncope: Valvular disease, hypertrophic cardiomyopathy, pulmonary embolism, tamponade, tachycardia, bradycardia, VT, hypovolemia, hemorrhage, dissection, anemia, intracranial hemorrhage, seizure, hypoglycemia, carbon monoxide poisoning, this is not meant to be an all-inclusive list. EKG interpreted by me (3pts min.). @ -EKG: Sinus rhythm rate of 84, NV interval 189, QRS duration 113, QTc [address] segment elevation. X-rays interpreted by me (1pt min.). @ -Chest x-ray negative for consolidated pneumonia or pneumothorax, chronic changes similar to prior. CT interpreted by me (1pt min.). @ -None done U/S interpreted by me (1pt. min.). @ -None done What testing was considered but not performed or refused? (CT, X-rays, U/S, labs)? Why? @ -None What meds were considered but not given or refused? Why? @ -None Did you discuss the management of the patient with other professionals (professionals i.e. , PA, FURNISHINGS CONSERVATOR, lab, RT, psych nurse, renal social worker, customer solutions teammate, teacher, delinquency prevention officer, dependency case manager)? Give summary @ -No Was smoking cessation discussed for >3mins.? @ -No Was critical care preformed (if so, how long)? @ -No Were there social determinants of health that impacted care today? How? (Homelessness, low income, unemployed, alcoholism, drug addiction, transportation, low edu. Level, literacy, decrease access to med. care, skilled nursing, re hab)? @ -No Was there de-escalation of care discussed even if they declined (Discuss DNR or withdrawal of care, Hospice)? DNR status @ -No What co-morbidities impacted this encounter? (DM, HTN, Smoking, COPD, CAD, Cancer, CVA, ARF, Chemo, Hep., AIDS, mental health diagnosis, sleep apnea, morbid obesity)? @Previous cancer diagnoses Was patient admitted / discharged? Hospital course, mention meds given and route, prescriptions, significant lab abnormalities, going to OR and other pertinent info. @ -89-year-old male presenting from outpatient CT with an episode of unresponsiveness associated with hypotension and bradycardia. Patient has regained consciousness and is in a sinus rhythm with stable blood pressure at the time of my evaluation. He is alert and oriented and at baseline. I did check EKG, chest x-ray, laboratory testing which is essentially all unremarkable. I did offer an observation for telemetry, close monitoring and fluid hydration. Patient declines. He states that he feels well and would prefer to go home. is at bedside and states that he has had 2 episodes of what was diagnosed as vasovagal syncope in the past. Undiagnosed new problem with uncertain prognosis? @ -No Drug Therapy requiring intensive monitoring for toxicity (Heparin, Nitro, Insulin, Cardizem)? @ -No Were any procedures done? @ -No Diagnosis/symptom? @ -Vasovagal syncope after contrast dye Acute, or Chronic, or Acute on Chronic? @ -Acute Uncomplicated (without systemic symptoms) or Complicated (systemic symptoms)? @ -Default Side effects of treatment? @ -No Exacerbation, Progression, or Severe Exacerbation? @ -No Poses a threat to life or bodily function? How? (Chest pain, USA, VT, pneumonia, PE, COPD, DKA, ARF, appy, cholecystitis, CVA, Diverticulitis, Homicidal, Suicidal, threat to staff... and all critical care pts) @ -[Low risk at this time - Lab Data Result diagrams: 05/19/24 13:46 05/19/24 13:46 Lab Results 05/19/24 05/19/24 05/19/24 Range/Units 13:46 13:46 13:46 WBC 7.3 (3.8-10.6) k/uL RBC 4.04 L (4.30-5.90) m/uL Hgb 12.5 L (13.0-17.5) gm/dL Hct 38.7 L (39.0-53.0) % MCV 95.9 (80.0-100.0) fL MCH 30.9 (25.0-35.0) pg MCHC 32.2 (31.0-37.0) g/dL RDW 13.8 (11.5-15.5) % Plt Count 230 (150-450) k/uL MPV 7.6 Neutrophils % 47 % Lymphocytes % 48 % Monocytes % 3 % Eosinophils % 0 % Basophils % 0 % Neutrophils # 3.4 (1.3-7.7) k/uL Lymphocytes # 3.5 (1.0-4.8) k/uL Monocytes # 0.2 (0-1.0) k/uL Eosinophils # 0.0 (0-0.7) k/uL Basophils # 0.0 (0-0.2) k/uL PT 11.4 (10.0-12.5) sec INR 1.1 (<1.2) APTT 20.4 L (22.0-30.0) sec Sodium 135 L (137-145) mmol/L Potassium 3.9 (3.5-5.1) mmol/L Chloride 104 (98-107) mmol/L Carbon Dioxide 25 (22-30) mmol/L Anion Gap 6 mmol/L BUN 22 H (9-20) mg/dL Creatinine 1.03 (0.66-1.25) mg/dL Est GFR (CKD-EPI)AfAm 75 (>60 ml/min/1.73 sqM) Est GFR (CKD-EPI)NonAf 65 (>60 ml/min/1.73 sqM) Glucose 112 H (74-99) mg/dL Calcium 9.3 (8.4-10.2) mg/dL Magnesium 1.7 (1.6-2.3) mg/dL Total Bilirubin 0.3 (0.2-1.3) mg/dL AST 20 (17-59) U/L ALT 16 (4-49) U/L Alkaline Phosphatase 80 (38-126) U/L Troponin I (0.000-0.034) ng/mL Total Protein 6.2 L (6.3-8.2) g/dL Albumin 3.4 L (3.5-5.0) g/dL 05/19/24 Range/Units 13:46 WBC (3.8-10.6) k/uL RBC (4.30-5.90) m/uL Hgb (13.0-17.5) gm/dL Hct (39.0-53.0) % MCV (80.0-100.0) fL MCH (25.0-35.0) pg MCHC (31.0-37.0) g/dL RDW (11.5-15.5) % Plt Count (150-450) k/uL MPV Neutrophils % % Lymphocytes % % Monocytes % % Eosinophils % % Basophils % % Neutrophils # (1.3-7.7) k/uL Lymphocytes # (1.0-4.8) k/uL Monocytes # (0-1.0) k/uL Eosinophils # (0-0.7) k/uL Basophils # (0-0.2) k/uL PT (10.0-12.5) sec INR (<1.2) APTT (22.0-30.0) sec Sodium (137-145) mmol/L Potassium (3.5-5.1) mmol/L Chloride (98-107) mmol/L Carbon Dioxide (22-30) mmol/L Anion Gap mmol/L BUN (9-20) mg/dL Creatinine (0.66-1.25) mg/dL Est GFR (CKD-EPI)AfAm (>60 ml/min/1.73 sqM) Est GFR (CKD-EPI)NonAf (>60 ml/min/1.73 sqM) Glucose (74-99) mg/dL Calcium (8.4-10.2) mg/dL Magnesium (1.6-2.3) mg/dL Total Bilirubin (0.2-1.3) mg/dL AST (17-59) U/L ALT (4-49) U/L Alkaline Phosphatase (38-126) U/L Troponin I 0.022 (0.000-0.034) ng/mL Total Protein (6.3-8.2) g/dL Albumin (3.5-5.0) g/dL Disposition Clinical Impression: Vasovagal syncope Disposition: HOME SELF-CARE Condition: Fair Instructions (If sedation given, give patient instructions): Syncope (ED) Is patient prescribed a controlled substance at d/c from ED?: No Referrals: Irvin Sauceda MD [Primary Care Provider] - 1-2 days Time of Disposition: 16:03
[2024-05-19] MEDS: ONDANSETRON 4 MG/2 ML VIAL IVP STA (14:12)
[2024-05-19 14:13] LABS: ALT 16 U/L (4-49); AST 20 U/L (17-59); African American GFR (CKD) 75 (>60 ml/min/1.73 sqM); Albumin 3.4 g/dL (3.5-5.0); Alkaline Phosphatase 80 U/L (38-126); Anion Gap 6 mmol/L; Blood Urea Nitrogen 22 mg/dL (9-20); Calcium 9.3 mg/dL (8.4-10.2); Carbon Dioxide 25 mmol/L (22-30); Chloride 104 mmol/L (98-107); Glucose 112 mg/dL (74-99); Magnesium 1.7 mg/dL (1.6-2.3); Non-African American GFR(CKD) 65 (>60 ml/min/1.73 sqM); Potassium 3.9 mmol/L (3.5-5.1); Sodium 135 mmol/L (137-145); Total Bilirubin 0.3 mg/dL (0.2-1.3); Total Protein 6.2 g/dL (6.3-8.2)
[2024-05-19 14:17] LABS: INR 1.1 (<1.2); Prothrombin Time 11.4 sec (10.0-12.5)
[2024-05-19 14:18] LABS: Partial Thromboplastin Time 20.4 sec (22.0-30.0)
--- NOTE | 2024-05-19 14:27 | XR ---
EXAMINATION TYPE: XR chest 2V DATE OF EXAM: 05/19/2024 2:22 PM COMPARISON: Chest radiographs from 05/21/2017 TECHNIQUE: XR chest 2V Frontal and lateral views of the chest. CLINICAL INDICATION:Male, 89 years old with history of syncope; FINDINGS: Lungs/Pleura: Prominent interstitial lung markings are seen scattered throughout the lungs. No pneumo thorax or pleural effusion. Bibasilar patchy reticular opacities. Pulmonary vascularity: Unremarkable. Heart/mediastinum: Cardiomediastinal silhouette is unremarkable. Musculoskeletal: No acute osseous pathology. Bilateral shoulder arthropathy. IMPRESSION: Bibasilar patchy reticular opacities which may represent an infectious process versus chronic interst itial changes. [facility], , 05/19/2024 2:25 PM
[2024-05-19 16:20] VITALS: BP 134/80; PULSE 80
== END 2024-05-19 16:20 | disposition home or self-care (01) ==
LOC: EC 13:38
DX: R55 Syncope and collapse (principal); R00.1 Bradycardia, unspecified; Z87.891 Personal history of nicotine dependence; Z88.1 Allergy status to other antibiotic agents; Z88.2 Allergy status to sulfonamides; Z90.49 Acquired absence of other specified parts of digestive tract; Z90.89 Acquired absence of other organs
CPT/HCPCS: 36415; 93005; 80053; 83735; 84484; 85025; 85610; 85730; 71046; 99285; 96374; 96361; J2405

== ENCOUNTER → 2024-05-19 | Outpatient (CLI) | payer MEDICARE, OTHER ==
[2024-05-19 13:11] LABS: African American GFR (CKD) 72 (>60 ml/min/1.73 sqM); Blood Urea Nitrogen 22 mg/dL (9-20); Non-African American GFR(CKD) 62 (>60 ml/min/1.73 sqM)
[2024-05-19 13:33] LABS: Glucose,Whole Blood 116 mg/dL (70-110)
--- NOTE | 2024-05-19 14:11 | CT ---
EXAMINATION TYPE: CT brain wo/w con CT DLP: 3185 mGycm, Automated exposure control for dose reduction was used. DATE OF EXAM: 05/19/2024 1:51 PM COMPARISON: CT facial bones 12/31/2023, 06/18/2022, 01/03/2022, CT brain 10/21/2018. CLINICAL INDICATION:Male, 89 years old with history of F02.A0 DEM IN OTHER DIS CLASSD ELSWHR, MILD, W /O B; PHH, DEMENTIA TECHNIQUE: Axial CT images of the brain were obtained followed by contrast enhanced axial images of t he brain with 100 cc of ISO-view 370 IV contrast. Patient was rescanned due to motion artifact. One o r more CT dose reduction strategies were utilized during this examination. Coronal and sagittal refor mats reviewed. FINDINGS: Extra-axial spaces: No abnormal extra-axial fluid collections. Ventricular system: Within normal limits Cerebral parenchyma: Mild diffuse cerebral atrophy. No acute intraparenchymal hemorrhage or mass effe ct. There is hypodensity identified within the left caudate head consistent with remote lacunar inju ry. The fountain-white junction is well differentiated. Scattered hypoattenuating areas are seen within t he periventricular white matter. No abnormal enhancement is seen after the administration of intraven ous contrast. Cerebellum: Unremarkable. Mass effect: No evidence of midline shift. Intracranial vasculature: unremarkable Soft tissues: Redemonstration of extensive fat stranding changes and soft tissue thickening around th e right mandible with osseous destruction and cortical breakthrough and normal appearance of the righ t mandible. No organized fluid collection. Incompletely visualized due to CT brain only exam. Calvarium/osseous structures: No depressed skull fracture. Paranasal sinuses and mastoid air cells: The paranasal sinuses are clear with synechiae within the bi lateral maxillary sinuses. Minimal opacification inferior bilateral mastoid air cells which is unchan ged from prior exams. Visualized orbits: Bilateral aphakia IMPRESSION: 1. No acute intracranial process. 2. Remote lacunar injuries along with nonspecific white matter changes likely secondary to chronic mi croangiopathy. 3. Similar appearance of soft tissue inflammatory changes with erosive changes of the right mandible. No organizing visualized fluid collection. Underlying chronic inflammatory/infectious process is not excluded. [facility], , 05/19/2024 2:08 PM
== END | disposition home or self-care (01) ==
LOC: RADCTMAIN 12:15
PROVIDERS: ATTEND Psychiatry & Neurology Neurology
DX: F02.A0 Dementia in other diseases classified elsewhere, mild, without behavioral disturbance, psychotic disturbance, mood disturbance, and anxiety (principal); I73.89 Other specified peripheral vascular diseases; H27.03 Aphakia, bilateral; G31.9 Degenerative disease of nervous system, unspecified
CPT/HCPCS: 82565; 84520; 70470; 36415; Q9967

== ENCOUNTER 2024-07-17 12:55 | Inpatient (IN) | payer MEDICARE, OTHER ==
[2024-07-17] MEDS ORDERED: VANCOMYCIN IV PER PHARMACY 1 EACH MISC MISCELLANE PRN (13:38)
--- NOTE | 2024-07-17 13:45 | ED ---
General Adult HPI - General Chief complaint: Skin/Abscess/Foreign Body Stated complaint: infection in face Time Seen by Provider: 07/17/24 12:58 Source: patient, family Mode of arrival: ambulatory Limitations: no limitations - History of Present Illness Initial comments: Patient is a pleasant 89-year-old gentleman past medical history of squamous cell carinoma of the tongue, s/p radiation, osteonecrosis of the jaw, presenting today for a sore on the right side of his jaw that has been ongoing for the last 2 to 3 years. Patient's provides majority of history because she states the patient has mild dementia. She brings patient in today due to persistent discharge from the wound at his right jaw and now "a hole" in the region of that wound. She has been seeing he has been seeing Dr. Sauceda was been prescribing various outpatient antibiotics, the most recent round which was doxycycline twice daily without improvement of patient symptoms. Patient states that Dr. Sauceda supplement for IV antibiotics and CT max face and to see Dr. Sheffield - Related Data Home Medications Medication Instructions Recorded Confirmed Acetaminophen [Tylenol Extra 500 mg PO BID@0900,1600 05/28/17 07/17/24 Strength] Atorvastatin [Lipitor] 10 mg PO HS 05/28/17 07/17/24 diphenhydrAMINE [Benadryl] 25 mg PO QID PRN 09/30/20 07/17/24 Acetaminophen-Codeine 300-30mg 1 tab PO HS 07/09/22 07/17/24 [Tylenol w/codeine #3] Azelastine HCl [Astepro] 2 spr EA NOSTRIL DAILY PRN 07/09/22 07/17/24 Calcium Carbonate [Tums] 500 mg PO TID PRN 07/09/22 07/17/24 Carboxymethylcellulose Sodium 1 drop BOTH EYES DAILY PRN 07/09/22 07/17/24 [Thera Tears] Coffee Xt/Phosphatidyl Serine 1 cap PO DAILY@1600 12/29/23 07/17/24 [Neuriva Original 100-100Mg Cap] Gabapentin [Neurontin] 400 mg PO TID@0900,1600,2100 12/29/23 07/17/24 Levothyroxine Sodium [Synthroid] 75 mcg PO DAILY@1600 12/29/23 07/17/24 Donepezil [Aricept] 10 mg PO HS 05/19/24 07/17/24 hydrOXYzine HCL [Atarax] 25 mg PO TID PRN 05/19/24 07/17/24 Multivitamins, Thera [Multivitamin 1 tab PO DAILY@1600 07/17/24 07/17/24 (formulary)] Previous Rx's Medication Instructions Recorded Doxycycline [Vibramycin] 100 mg PO BID 28 Days #56 capsule 01/03/24 Allergies Allergy/AdvReac Type Severity Reaction Status Date / Time Sulfa (Sulfonamide Allergy Itching Verified 07/17/24 16:06 Antibiotics) Review of Systems ROS Statement: Those systems with pertinent positive or pertinent negative responses have been documented in the HPI. ROS Other: All systems not noted in ROS Statement are negative. 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 Past Anesthesia/Blood Transfusion Reactions: No Reported Reaction Past Psychological History: No Psychological Hx Reported Smoking Status: Former smoker Past Alcohol Use History: None Reported Past Drug Use History: None Reported - Past Family History Mother Family Medical History: Unable to Obtain Father Family Medical History: Unable to Obtain General Exam - General Exam Comments Initial Comments: PE: CONSTITUTIONAL: No apparent distress, well appearing SKIN: Warm, dry, no jaundice, hives or petechiae. 1 x 2cm scabbed lesion aong angle of right mandible, with pressure, there is thick yellow discharge and the wound appears to extend through to the inner buccal mucosa EYES: Pupils are equally round, extraocular movements intact without nystagmus, clear conjunctiva, non-icteric sclera HENT: Normocephalic, atraumatic, moist mucus membranes, oropharynx clear, right inner buccal mucosa displays mild erythema with a small exophytic lesion present, javon jaw occlusion NECK: , Full range of motion, normal appearance PULMONARY: Clear to auscultation without wheezes, rhonchi, or rales, normal excursion, no accessory muscle use and no stridor CARDIOVASCULAR: Regular rate, rhythm, normal S1 and S2. No appreciated murmurs, rubs or gallops. Strong radial pulses with intact distal perfusion. No lower extremity edema GASTROINTESTINAL: Soft, active bowel sounds throughout, non-tender, non- distended, no palpable masses, no rebound or guarding. No hepatosplenomegaly MUSCULOSKELETAL: Extremities have no gross deformity, no edema, redness, or swelling. No calf swelling NEUROLOGIC:_a/o x 3, GCS 15, normal mentation and speech. Moves all extremities x 4 without motor or sensory deficit PSYCHIATRIC:_normal mood and affect, thought process is clear and linear Limitations: no limitations Course Vital Signs 07/17/24 13:02 Temperature 98.2 F Pulse Rate 80 Respiratory 20 Rate Blood Pressure 121/60 O2 Sat by Pulse 99 Oximetry Medical Decision Making - Medical Decision Making Was pt. sent in by a medical professional or institution (, PA, SHADE CUTTER, urgent care, hospital, or skilled nursing...) When possible be specific @ -No Did you speak to anyone other than the patient for history (EMS, parent, family, police, friend...)? What history was obtained from this source @ -No Did you review nursing and triage notes (agree or disagree)? Why? @ -I reviewed nursing and triage notes Were old charts reviewed (outside hosp., previous admission, EMS record, old EKG, old radiological studies, urgent care reports/EKG's, skilled nursing records)? Report findings @ -Medical records reviewed patient was seen here previously on 02/19 for similar complaint, history squamous of carcinoma of the base of the tongue and subsequent osteo radionecrosis of the jaw after treatment CT at that time showed extensive abnormality of the right mandibular region with erosion and finding suggestive intramuscular abscess of the right masseter with osteomyelitis Differential Diagnosis (chest pain, altered mental status, abdominal pain women, abdominal pain men, vaginal bleeding, weakness, fever, dyspnea, syncope, headache, dizziness, GI bleed, back pain, seizure, CVA, palpatations, mental health, musculoskeletal)? @Differential diagnosis remains broad however top considerations include cellulitis, necrotic ulcer, facial abscess, skin cancer, osteonecrosis of the jaw, this is not an all inclusive list EKG interpreted by me (3pts min.). @ -As above X-rays interpreted by me (1pt min.). @ -None done CT interpreted by me (1pt min.). No visible abscess formation in area of concern, there does appear to be some bony destruction along the right mandible as well U/S interpreted by me (1pt. min.). @ -None done What testing was considered but not performed or refused? (CT, X-rays, U/S, labs)? Why? @ -None What meds were considered but not given or refused? Why? @ -None Did you discuss the management of the patient with other professionals (professionals i.e. DrBrendan, PA, SHADE CUTTER, lab, RT, psych nurse, social science research assistant, market asset protection manager, teacher, juvenile officer, lead case manager)? Give summary @ -No Was smoking cessation discussed for >3mins.? @ -No Was critical care preformed (if so, how long)? @ -No Were there social determinants of health that impacted care today? How? (Homelessness, low income, unemployed, alcoholism, drug addiction, transportation, low edu. Level, literacy, decrease access to med. care, penitentiary, rehab)? @ -No Was there de-escalation of care discussed even if they declined (Discuss DNR or withdrawal of care, Hospice)? @ -No What co-morbidities impacted this encounter? (DM, HTN, Smoking, COPD, CAD, Cancer, CVA, ARF, Chemo, Hep., AIDS, mental health diagnosis, sleep apnea, morbid obesity)? @ Hx squamous cell CA of the tongue w/ resultant radiation Was patient admitted / discharged? Hospital course, mention meds given and route, prescriptions, significant lab abnormalities, going to OR and other pertinent info. @ -Admission- Pt is a pleasant 89-year-old gentleman with a past medical history of mild dementia, squamous cell cancer of the tongue s/p radiation, recurrent ulcerative lesion/wound on the right mandible presenting with his today for worsening of right sided facial infection. Has been on multiple rounds of antibiotics. Was sent in by his primary care provider Dr. Sauceda for consult from Dr. Sheffield, IV antibiotics and admission. Patient seen and assessed by myself, complete history of physical exam performed. He is well-appearing and in no acute distress. Does show necrotic appearing ulcer to the right face with yellow discharge, no swelling. Patient is currently oriented x 4 and accompanied by his . His is adamant that they do not want to be transferred to another facility as they have been in the past. They have been offered surgery of his mandible twice to remove the necrotic region and patient's does not wish for the patient to have surgery at any point. She requests IV antibiotics and nothing further. Discussed with patient and plan for CT face, will initiate IV antibiotics obtain basic labs. Patient and are agreeable with plan of care. Labs Grossly within normal limits. Abnormal values not concerning for acute pathology related to presenting complaint. Additionally, I personally reviewed patient CT face, I see no evidence of abscess formation in the region of patient's facial wound. Read pending at time of admission. Case was discussed with Dr. Gagnon, kindly accepts patient for admission. Undiagnosed new problem with uncertain prognosis? @ -No Drug Therapy requiring intensive monitoring for toxicity (Heparin, Nitro, Insulin, Cardizem)? @ -No Were any procedures done? @ -No Diagnosis/symptom? @ Recurrent nonhealing facial wound Acute, or Chronic, or Acute on Chronic? acute on chronic Uncomplicated (without systemic symptoms) or Complicated (systemic symptoms)? @ -uncomplicated Side effects of treatment? @ -No Exacerbation, Progression, or Severe Exacerbation? @ -No Poses a threat to life or bodily function? How? (Chest pain, USA, NH, pneumonia, PE, COPD, DKA, ARF, appy, cholecystitis, CVA, Diverticulitis, Homicidal, Suicidal, threat to staff... and all critical care pts) Potentially, if infection leads to sepsis if were left untreated - Lab Data Result diagrams: 07/18/24 05:59 07/18/24 05:59 Lab Results 07/17/24 07/17/24 Range/Units 13:48 13:48 WBC 7.1 (3.8-10.6) k/uL RBC 3.56 L (4.30-5.90) m/uL Hgb 11.6 L (13.0-17.5) gm/dL Hct 34.6 L (39.0-53.0) % MCV 97.2 (80.0-100.0) fL MCH 32.6 (25.0-35.0) pg MCHC 33.6 (31.0-37.0) g/dL RDW 13.7 (11.5-15.5) % Plt Count 208 (150-450) k/uL MPV 7.9 Neutrophils % 65 % Lymphocytes % 27 % Monocytes % 5 % Eosinophils % 1 % Basophils % 0 % Neutrophils # 4.6 (1.3-7.7) k/uL Lymphocytes # 1.9 (1.0-4.8) k/uL Monocytes # 0.4 (0-1.0) k/uL Eosinophils # 0.1 (0-0.7) k/uL Basophils # 0.0 (0-0.2) k/uL Sodium 137 (137-145) mmol/L Potassium 5.5 H (3.5-5.1) mmol/L Chloride 101 (98-107) mmol/L Carbon Dioxide 30 (22-30) mmol/L Anion Gap 6 mmol/L BUN 27 H (9-20) mg/dL Creatinine 0.99 (0.66-1.25) mg/dL Est GFR (CKD-EPI)AfAm 78 (>60 ml/min/1.73 sqM) Est GFR (CKD-EPI)NonAf 68 (>60 ml/min/1.73 sqM) Glucose 106 H (74-99) mg/dL Calcium 9.6 (8.4-10.2) mg/dL Total Bilirubin 0.5 (0.2-1.3) mg/dL AST 27 (17-59) U/L ALT 17 (4-49) U/L Alkaline Phosphatase 61 (38-126) U/L C-Reactive Protein 1.4 H (<1.0) mg/dL Total Protein 6.5 (6.3-8.2) g/dL Albumin 3.5 (3.5-5.0) g/dL Disposition Clinical Impression: Wound infection Disposition: ADMITTED IP TO THIS HOSP Condition: Stable
[2024-07-17 14:01] LABS: Basophils % (A) 0 %; Eosinophils # (A) 0.1 k/uL (0-0.7); Eosinophils % (A) 1 %; HCT 34.6 % (39.0-53.0); HGB 11.6 gm/dL (13.0-17.5); Lymphocytes # (A) 1.9 k/uL (1.0-4.8); Lymphocytes % (A) 27 %; MCH 32.6 pg (25.0-35.0); MCHC 33.6 g/dL (31.0-37.0); MCV 97.2 fL (80.0-100.0); Mean Platelet Volume 7.9; Monocytes # (A) 0.4 k/uL (0-1.0); Monocytes % (A) 5 %; Neutrophils # (A) 4.6 k/uL (1.3-7.7); Neutrophils % (A) 65 %; Platelet Count 208 k/uL (150-450); RBC 3.56 m/uL (4.30-5.90); RDW 13.7 % (11.5-15.5); WBC 7.1 k/uL (3.8-10.6)
[2024-07-17] MEDS: AMPICILLIN-SULBACTAM 3 GM in SODIUM CHLORIDE 0.9% 100 ML IVPB STA (14:01)
[2024-07-17 14:34] LABS: ALT 17 U/L (4-49); African American GFR (CKD) 78 (>60 ml/min/1.73 sqM); Albumin 3.5 g/dL (3.5-5.0); Anion Gap 6 mmol/L; Blood Urea Nitrogen 27 mg/dL (9-20); C Reactive Protein 1.4 mg/dL (<1.0); Calcium 9.6 mg/dL (8.4-10.2); Carbon Dioxide 30 mmol/L (22-30); Chloride 101 mmol/L (98-107); Glucose 106 mg/dL (74-99); Non-African American GFR(CKD) 68 (>60 ml/min/1.73 sqM); Sodium 137 mmol/L (137-145); Total Bilirubin 0.5 mg/dL (0.2-1.3); Total Protein 6.5 g/dL (6.3-8.2)
[2024-07-17 14:39] LABS: AST 27 U/L (17-59); Alkaline Phosphatase 61 U/L (38-126); Potassium 5.5 mmol/L (3.5-5.1)
[2024-07-17] MEDS: VANCOMYCIN 1,250 MG in SODIUM CHLORIDE 0.9% 250 ML IVPB ONE (14:49)
[2024-07-17] MEDS ORDERED: CALCIUM CARBONATE 500 MG CHEWABLE PO PRN (16:22)
[2024-07-17] MEDS ORDERED: hydrOXYzine HCL 25 MG TAB PO PRN (16:22)
[2024-07-17] MEDS ORDERED: diphenhydrAMINE 25 MG CAP PO PRN (16:22)
[2024-07-17] MEDS ORDERED: AZELASTINE 137MCG/SPRAY EA NOSTRIL PRN (16:22)
[2024-07-17] MEDS ORDERED: ARTIFICIAL TEARS-HYPROMELLOSE DROPS 15 ML BTL BOTH EYES PRN (16:22)
[2024-07-17] MEDS ORDERED: DOCUSATE 100 MG CAP PO PRN (16:25)
[2024-07-17] MEDS ORDERED: NALOXONE 0.4 MG/ML 1 ML VIAL IV PRN (16:25)
[2024-07-17] MEDS: LEVOTHYROXINE 75 MCG TAB PO SCH (17:26)
[2024-07-17] MEDS: GABAPENTIN 400 MG CAP PO SCH (17:26)
[2024-07-17] MEDS ORDERED: AMPICILLIN-SULBACTAM 3 GM in SODIUM CHLORIDE 0.9% 100 ML IVPB SCH (18:00)
--- NOTE | 2024-07-17 18:34 | CT ---
EXAMINATION TYPE: CT facial bones wo con DATE OF EXAM: 07/17/2024 2:44 PM COMPARISON: 12/31/2023, 05/03/2023. CLINICAL INDICATION: Male, 89 years old with history of right facial wound, non healing, likely necro tic; PHH, Right facial wound, non healing, likely necrotic. TECHNIQUE: Multiple unenhanced axial CT images were obtained of the facial bones soft tissue and bone windows. Coronal, axial and sagittal reformatted images were also provided in soft tissue and bone windows and submitted for interpretation. Contrast used: mL of , (none if empty) Oral contrast used: (none if empty) CT DLP: 539 mGycm, Automated exposure control for dose reduction was used. FINDINGS: Redemonstration of extensive fat stranding changes around the right mandible with osseous destruction with cortical breakthrough and a mottled appearance to the right mandible osseous structures. There remains soft tissue edema surrounding the right face centered around the osseous erosion. There is a a small defect noted within the skin series 207 image 44. Destructive changes with possible fracture through the mandible on the right are present. Few foci of gas are now within the mandible possibly t racking into the oral cavity. There remains no evidence for organizing fluid collection however evaluation limited due to technique without contrast and CT imaging. Atherosclerosis of the bilateral carotid bifurcation secondary to predominantly noncalcified plaque i n the left up to Bilaterally aphakia. Anterior cranial portions of the exam are unremarkable. There is nonvisualization of the right vertebral artery with reconstitution near its confluence. Bilaterally aphakia. Mild paranasal mucosal thickening of the turbinates IMPRESSION: Redemonstration of extensive abnormality to the right mandible with osseous erosion and now a few foc i of gas. Suspected pathologic fracture not definitively excluded. There remains no organizing fluid collection definitively visualized on today's exam. Chronic osteomyelitis changes are thought to be p resent. [facility], , 07/17/2024 6:32 PM
--- NOTE | 2024-07-17 20:04 | P.HPIM ---
History of Present Illness This is a pleasant 89 years old male who presents today because of worsening discharge from his right cheek wound. 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 Sheffield but that was several months ago. However this was worsening over the last 3 to 4 days ago. Patient was recently on the doxycycline chronically for about 4 months. He denies any other specific complaint. No smoking alcohol or illicit drug. Patient had history of cancer at the base of the tongue that was more than a year ago. Patient has been on oral antibiotics for about 1 year Also patient has evidence of induration around the right ankle, looks like at least mass or fibrous tissue There are 2 openings on the right cheek, 1 regarding the middle with some yellowish liquidy discharge. And 1 be needed with no significant discharge Patient is afebrile and vital stable WBC 7.1 Hemoglobin 11.1 Rest of CBC, BMP and LFT are unremarkable except for mildly elevated potassium 5.5 CT of the face showing right mandible abnormal with osseous erosions and new foci of gas Patient started on Unasyn IV vancomycin and admitted with IV team consult Review of Systems Review of systems CONSTITUTIONAL: No fever, no malaise, no fatigue. HEENT: No recent visual problems or hearing problems. Denied any sore throat. CARDIOVASCULAR: No orthopnea, PND, no palpitations, no syncope. PULMONARY: No shortness of breath, no cough, no hemoptysis. GASTROINTESTINAL: No diarrhea, no nausea, no vomiting, no abdominal pain. Normoactive bowel sounds. NEUROLOGICAL: No headaches, no weakness, no numbness. HEMATOLOGICAL: Denies any bleeding or petechiae. GENITOURINARY: Denies any burning micturition, frequency, or urgency. MUSCULOSKELETAL/RHEUMATOLOGICAL: Denies any joint pain, swelling, or any muscle pain. ENDOCRINE: Denies any polyuria or polydipsia. 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 Past Anesthesia/Blood Transfusion Reactions: No Reported Reaction Past Psychological History: No Psychological Hx Reported Smoking Status: Former smoker Past Alcohol Use History: None Reported Past Drug Use History: None Reported - Past Family History Mother Family Medical History: Unable to Obtain Father Family Medical History: Unable to Obtain Medications and Allergies Home Medications Medication Instructions Recorded Confirmed Type Acetaminophen [Tylenol Extra 500 mg PO BID@0900,1600 05/28/17 07/17/24 History Strength] Atorvastatin [Lipitor] 10 mg PO HS 05/28/17 07/17/24 History diphenhydrAMINE [Benadryl] 25 mg PO QID PRN 09/30/20 07/17/24 History Acetaminophen-Codeine 300-30mg 1 tab PO HS 07/09/22 07/17/24 History [Tylenol w/codeine #3] Azelastine HCl [Astepro] 2 spr EA NOSTRIL DAILY PRN 07/09/22 07/17/24 History Calcium Carbonate [Tums] 500 mg PO TID PRN 07/09/22 07/17/24 History Carboxymethylcellulose Sodium 1 drop BOTH EYES DAILY PRN 07/09/22 07/17/24 History [Thera Tears] Coffee Xt/Phosphatidyl Serine 1 cap PO DAILY@1600 12/29/23 07/17/24 History [Neuriva Original 100-100Mg Cap] Gabapentin [Neurontin] 400 mg PO TID@0900,1600,2100 12/29/23 07/17/24 History Levothyroxine Sodium [Synthroid] 75 mcg PO DAILY@1600 12/29/23 07/17/24 History Doxycycline [Vibramycin] 100 mg PO BID 28 Days #56 capsule 01/03/24 07/17/24 Rx Donepezil [Aricept] 10 mg PO HS 05/19/24 07/17/24 History hydrOXYzine HCL [Atarax] 25 mg PO TID PRN 05/19/24 07/17/24 History Multivitamins, Thera [Multivitamin 1 tab PO DAILY@1600 07/17/24 07/17/24 History (formulary)] Allergies Allergy/AdvReac Type Severity Reaction Status Date / Time Sulfa (Sulfonamide Allergy Itching Verified 07/17/24 16:06 Antibiotics) Physical Exam Vitals: Vital Signs Temp Pulse Pulse Resp BP BP Pulse Ox 07/17/24 17:47 97.7 F 62 19 149/59 99 07/17/24 13:02 98.2 F 80 20 121/60 99 Intake and Output 07/17/24 07/17/24 07/17/24 06:59 14:59 22:59 Other: Weight 65.317 kg GENERAL: The patient is alert and oriented x3, not in any acute distress. Well developed, well nourished. HEENT: Pupils are round and equally reacting to light. EOMI. No scleral icterus. No conjunctival pallor. Normocephalic, atraumatic. No pharyngeal erythema. No thyromegaly. --Right cheek with small opening of the middle, with a dried scab on the top. No surrounding cellulitis. Underneath area of induration around the right jaw angle CARDIOVASCULAR: S1 and S2 present. No murmurs, rubs, or gallops. PULMONARY: Chest is clear to auscultation, no wheezing , no crackles. ABDOMEN: Soft, nontender, nondistended, normoactive bowel sounds. No palpable organomegaly. MUSCULOSKELETAL: No joint swelling or deformity. EXTREMITIES: No cyanosis, clubbing, or pedal edema. NEUROLOGICAL: Gross neurological examination did not reveal any focal deficits. SKIN: No rashes. no petechiae. Results CBC & Chem 7: 07/17/24 13:48 07/17/24 13:48 Labs: Abnormal Lab Results - Last 24 Hours (Table) 07/17/24 07/17/24 Range/Units 13:48 13:48 RBC 3.56 L (4.30-5.90) m/uL Hgb 11.6 L (13.0-17.5) gm/dL Hct 34.6 L (39.0-53.0) % Potassium 5.5 H (3.5-5.1) mmol/L BUN 27 H (9-20) mg/dL Glucose 106 H (74-99) mg/dL C-Reactive Protein 1.4 H (<1.0) mg/dL Assessment and Plan Assessment: Acute on chronic right cheek wound with recent worsening discharge medication wound infection, nonhealing. Associated with abnormal lower right mandible and osseous erosions with new foci of gas on CT of the face Mild hyperkalemia Mild anemia, chronic History of squamous cell cancer of the tongue Plan: continue with IV antibiotic, currently on IV vancomycin and Unasyn Infectious disease consult Follow-up culture results Orofacial surgical consult Labs and medication were reviewed.. Continue same treatment. Continue with symptomatic treatment. Resume home medication. Monitor labs and vitals. DVT and GI prophylaxis. Further recommendations as per clinical course of the patient DVT prophylaxis: Subcutaneous heparin GI Prophylaxis: Pepcid Prognosis is guarded
[2024-07-17] MEDS: FAMOTIDINE 20 MG TAB PO SCH (20:47)
[2024-07-17] MEDS: Acetaminophen-Codeine 300-30mg TAB PO SCH (20:47)
[2024-07-17] MEDS: DONEPEZIL 10 MG TAB PO SCH (20:47)
[2024-07-17] MEDS: ATORVASTATIN 10 MG TAB PO SCH (20:47)
[2024-07-17] MEDS: AMPICILLIN-SULBACTAM 3 GM in SODIUM CHLORIDE 0.9% 100 ML IVPB SCH (21:00)
[2024-07-18 06:24] LABS: African American GFR (CKD) 76 (>60 ml/min/1.73 sqM); Anion Gap 4 mmol/L; Blood Urea Nitrogen 19 mg/dL (9-20); Calcium 9.2 mg/dL (8.4-10.2); Carbon Dioxide 33 mmol/L (22-30); Chloride 102 mmol/L (98-107); Glucose 82 mg/dL (74-99); Non-African American GFR(CKD) 66 (>60 ml/min/1.73 sqM); Potassium 4.4 mmol/L (3.5-5.1); Sodium 139 mmol/L (137-145)
[2024-07-18] MEDS: PHOSPHATIDYL SERINE PO SCH (07:51)
[2024-07-18] MEDS: [UNRECOGNIZED DRUG - OTHER] PO SCH (07:51)
[2024-07-18] MEDS: ENOXAPARIN 40 MG/0.4 ML SYRINGE SQ SCH (09:04)
[2024-07-18 11:27] LABS: Basophils # (A) 0.01 X 10*3/uL (0.00-0.10); Basophils % (A) 0.2 %; Eosinophils # (A) 0.13 X 10*3/uL (0.04-0.35); Eosinophils % (A) 2.6 %; HCT 34.8 % (39.6-50.0); HGB 11.4 g/dL (13.0-17.0); Lymphocytes # (A) 1.68 X 10*3/uL (0.90-5.00); Lymphocytes % (A) 34.2 %; MCH 31.6 pg (27.0-32.0); MCHC 32.8 g/dL (32.0-37.0); MCV 96.4 FL (80.0-97.0); Mean Platelet Volume 10.4 FL (9.5-12.2); Monocytes # (A) 0.48 X 10*3/uL (0.20-1.00); Monocytes % (A) 9.8 %; NRBC Per 100 WBC 0 X 10*3/uL (0.00-0.01); Platelet Count 187 X 10*3/uL (140-440); RBC 3.61 X 10*6/uL (4.40-5.60); RDW 14.2 % (11.5-14.5); WBC 4.91 X 10*3/uL (4.50-10.00)
--- NOTE | 2024-07-18 13:01 | P.PN ---
Subjective This is a pleasant 89 years old male who presents today because of worsening discharge from his right cheek wound. 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 Sheffield but that was several months ago. However this was worsening over the last 3 to 4 days ago. Patient was recently on the doxycycline chronically for about 4 months. He denies any other specific complaint. No smoking alcohol or illicit drug. Patient had history of cancer at the base of the tongue that was more than a year ago. Patient has been on oral antibiotics for about 1 year Also patient has evidence of induration around the right ankle, looks like at least mass or fibrous tissue There are 2 openings on the right cheek, 1 regarding the middle with some yellowish liquidy discharge. And 1 be needed with no significant discharge Patient is afebrile and vital stable WBC 7.1 Hemoglobin 11.1 Rest of CBC, BMP and LFT are unremarkable except for mildly elevated potassium 5.5 CT of the face showing right mandible abnormal with osseous erosions and new foci of gas Patient started on Unasyn IV vancomycin and admitted with IV team consult 07/18 Patient clinically was improving He denies any pain in his right cheek His right cheek wound looks drying, currently there is no purulent discharge and no surrounding cellulitis He was kept on IV vancomycin and Unasyn Wound culture was sent Objective - Vital Signs Vital signs: Vital Signs Temp 97.3 F L 07/18/24 07:15 Pulse 60 07/18/24 07:15 Resp 20 07/18/24 07:15 BP 135/68 07/18/24 07:15 Pulse Ox 97 07/18/24 07:15 FiO2 Intake & Output 07/17/24 07/18/24 07/18/24 18:59 06:59 18:59 Intake Total 240 Balance 240 Weight 65.317 kg Intake: Oral 240 Other: Voiding Method Self-Catheterization Self-Catheterization # Voids 2 - Exam GENERAL: The patient is alert and oriented x3, not in any acute distress. Well developed, well nourished. -HEENT: Pupils are round and equally reacting to light. EOMI. No scleral icterus. No conjunctival pallor. Normocephalic, atraumatic. No pharyngeal erythema. No thyromegaly. Right cheek wound, swellin and induration around the right jaw angle CARDIOVASCULAR: S1 and S2 present. No murmurs, rubs, or gallops. PULMONARY: Chest is clear to auscultation, no wheezing , no crackles. ABDOMEN: Soft, nontender, nondistended, normoactive bowel sounds. No palpable organomegaly. MUSCULOSKELETAL: No joint swelling or deformity. EXTREMITIES: No cyanosis, clubbing, or pedal edema. NEUROLOGICAL: Gross neurological examination did not reveal any focal deficits. SKIN: No rashes. no petechiae. - Labs CBC & Chem 7: 07/18/24 05:59 07/18/24 05:59 Labs: Abnormal Lab Results - Last 24 Hours (Table) 07/17/24 07/17/24 07/18/24 Range/Units 13:48 13:48 05:59 RBC 3.56 L (4.30-5.90) m/uL Hgb 11.6 L (13.0-17.5) gm/dL Hct 34.6 L (39.0-53.0) % Potassium 5.5 H (3.5-5.1) mmol/L Carbon Dioxide 33 H (22-30) mmol/L BUN 27 H (9-20) mg/dL Glucose 106 H (74-99) mg/dL C-Reactive Protein 1.4 H (<1.0) mg/dL 07/18/24 Range/Units 05:59 RBC 3.61 L (4.30-5.90) m/uL Hgb 11.4 L (13.0-17.5) gm/dL Hct 34.8 L (39.0-53.0) % Potassium (3.5-5.1) mmol/L Carbon Dioxide (22-30) mmol/L BUN (9-20) mg/dL Glucose (74-99) mg/dL C-Reactive Protein (<1.0) mg/dL Assessment and Plan Assessment: Acute on chronic right cheek wound with recent worsening discharge medication wound infection, nonhealing. Associated with abnormal lower right mandible and osseous erosions with new foci of gas on CT of the face Mild hyperkalemia Mild anemia, chronic History of squamous cell cancer of the tongue Plan: continue with IV antibiotic, currently on IV vancomycin and Unasyn Infectious disease consult Follow-up culture results Orofacial surgical consult Labs and medication were reviewed.. Continue same treatment. Continue with symptomatic treatment. Resume home medication. Monitor labs and vitals. DVT and GI prophylaxis. Further recommendations as per clinical course of the patient DVT prophylaxis: Subcutaneous heparin GI Prophylaxis: Pepcid Prognosis is guarded
[2024-07-18] MEDS: AMPICILLIN-SULBACTAM 3 GM in SODIUM CHLORIDE 0.9% 100 ML IVPB SCH (14:27)
[2024-07-18] MEDS: VANCOMYCIN 1,250 MG in SODIUM CHLORIDE 0.9% 250 ML IVPB SCH (16:02)
[2024-07-18] MEDS: MULTIVITAMINS, THERA 1 EACH TAB PO SCH (17:57)
[2024-07-18] MEDS: ACETAMINOPHEN TAB 500 MG TAB PO SCH (17:57)
[2024-07-19 05:31] LABS: African American GFR (CKD) 75 (>60 ml/min/1.73 sqM); Non-African American GFR(CKD) 65 (>60 ml/min/1.73 sqM)
--- NOTE | 2024-07-19 08:00 | P.CONS ---
History of Present Illness - Reason for Consult Consult date: 07/18/24 Necrotic wound Requesting physician: Berta Salas - Chief Complaint Sore to the right side of the face x months - History of Present Illness Patient is a 89-year-old male with a past medical history significant for squamous cell carcinoma of the base of the tongue history of radiation treatment patient also have a extensive surgery to the jaw and has been dealing with osteonecrosis/osteomyelitis for couple of years now also with a history of reflux hyperlipidemia patient presenting to the ER concerning for the sore on the right side of the jaw that has been ongoing for the last few months and has been treated with multiple course of antibiotic by the PCP patient mention the ED will drain some purulent material subsequently scab off and then opened up again has been complaining of pain to the area mostly dull aching moderate intensity without radiation with associated swelling and some purulent drainage patient denies high-grade fever difficulty swallowing no nausea no vomiting no abdominal pain or any diarrhea on presentation to the hospital the patient was afebrile and no fever have been recorded subsequently patient was not tachycardic hypotensive or hypoxic patient did have a white count of 7.1 creatinine is 1.02 liver isms are normal CRP is 1.4 patient did have a face CT extensive fat stranding changes around the right mandible with bony destruction soft tissue edema few foci of gas along within the mandible possibly tracking into the oral cavity no evidence for organizing fluid collection patient was started on Unasyn and vancomycin infectious disease was consulted for further management of antibiotic therapy Review of Systems Positive point and negatives has been mentioned in the HPI, complete review of systems was performed and all other systems are negative 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 Past Anesthesia/Blood Transfusion Reactions: No Reported Reaction Past Psychological History: No Psychological Hx Reported Smoking Status: Former smoker Past Alcohol Use History: None Reported Past Drug Use History: None Reported - Past Family History Mother Family Medical History: Unable to Obtain Father Family Medical History: Unable to Obtain Medications and Allergies Home Medications Medication Instructions Recorded Confirmed Type Acetaminophen [Tylenol Extra 500 mg PO BID@0900,1600 05/28/17 07/17/24 History Strength] Atorvastatin [Lipitor] 10 mg PO HS 05/28/17 07/17/24 History diphenhydrAMINE [Benadryl] 25 mg PO QID PRN 09/30/20 07/17/24 History Acetaminophen-Codeine 300-30mg 1 tab PO HS 07/09/22 07/17/24 History [Tylenol w/codeine #3] Azelastine HCl [Astepro] 2 spr EA NOSTRIL DAILY PRN 07/09/22 07/17/24 History Calcium Carbonate [Tums] 500 mg PO TID PRN 07/09/22 07/17/24 History Carboxymethylcellulose Sodium 1 drop BOTH EYES DAILY PRN 07/09/22 07/17/24 History [Thera Tears] Coffee Xt/Phosphatidyl Serine 1 cap PO DAILY@1600 12/29/23 07/17/24 History [Neuriva Original 100-100Mg Cap] Gabapentin [Neurontin] 400 mg PO TID@0900,1600,2100 12/29/23 07/17/24 History Levothyroxine Sodium [Synthroid] 75 mcg PO DAILY@1600 12/29/23 07/17/24 History Doxycycline [Vibramycin] 100 mg PO BID 28 Days #56 capsule 01/03/24 07/17/24 Rx Donepezil [Aricept] 10 mg PO HS 05/19/24 07/17/24 History hydrOXYzine HCL [Atarax] 25 mg PO TID PRN 05/19/24 07/17/24 History Multivitamins, Thera [Multivitamin 1 tab PO DAILY@1600 07/17/24 07/17/24 History (formulary)] Allergies Allergy/AdvReac Type Severity Reaction Status Date / Time Sulfa (Sulfonamide Allergy Itching Verified 07/17/24 16:06 Antibiotics) Physical Exam Vitals: Vital Signs Temp Pulse Resp BP Pulse Ox 07/18/24 07:15 97.3 F L 60 20 135/68 97 07/18/24 01:50 97.5 F L 67 18 103/64 95 07/17/24 22:59 61 16 07/17/24 19:42 97.8 F 61 16 146/78 100 07/17/24 17:47 97.7 F 62 19 149/59 99 Intake and Output 07/17/24 07/18/24 07/18/24 22:59 06:59 14:59 Intake Total 240 Balance 240 Intake: Oral 240 Other: Voiding Method Self-Catheterization Self-Catheterization # Voids 2 Weight 65.317 kg GENERAL DESCRIPTION: Elderly male lying in bed, no distress. No tachypnea or accessory muscle of respiration use. HEENT: Shows Pallor , no scleral icterus. Oral mucous membrane is dry. Right mandible area did have a scab which was easily lifted up with Q-tip underlying purulent drainage was cultured NECK: Trachea central, no thyromegaly. LUNGS: Unlabored breathing. Clear to auscultation anteriorly. No wheeze or crackle. HEART: S1, S2, regular rate and rhythm. No loud murmur ABDOMEN: Soft, no tenderness , guarding or rigidity, no organomegaly EXTREMITIES: No edema of feet. SKIN: No rash, no masses palpable. NEUROLOGICAL: The patient is awake, alert, oriented x3, mood and affect normal. Results CBC & Chem 7: 07/18/24 05:59 07/19/24 03:45 Labs: Abnormal Lab Results - Last 24 Hours (Table) 07/17/24 07/17/24 07/18/24 Range/Units 13:48 13:48 05:59 RBC 3.56 L (4.30-5.90) m/uL Hgb 11.6 L (13.0-17.5) gm/dL Hct 34.6 L (39.0-53.0) % Potassium 5.5 H (3.5-5.1) mmol/L Carbon Dioxide 33 H (22-30) mmol/L BUN 27 H (9-20) mg/dL Glucose 106 H (74-99) mg/dL C-Reactive Protein 1.4 H (<1.0) mg/dL 07/18/24 Range/Units 05:59 RBC 3.61 L (4.30-5.90) m/uL Hgb 11.4 L (13.0-17.5) gm/dL Hct 34.8 L (39.0-53.0) % Potassium (3.5-5.1) mmol/L Carbon Dioxide (22-30) mmol/L BUN (9-20) mg/dL Glucose (74-99) mg/dL C-Reactive Protein (<1.0) mg/dL Assessment and Plan (1) Wound infection Current Visit: Yes Status: Acute Code(s): T14.8XXA - OTHER INJURY OF UNSPECIFIED BODY REGION, INITIAL ENCOUNTER; L08.9 - LOCAL INFECTION OF THE SKIN AND SUBCUTANEOUS TISSUE, UNSP SNOMED Code(s): 67434913 (2) Osteomyelitis of mandible Current Visit: No Status: Acute Code(s): M27.2 - INFLAMMATORY CONDITIONS OF JAWS SNOMED Code(s): 836203798 Plan: 1patient with the extensive history of squamous cell carcinoma of the base of the tongue in this patient who has received radiation treatment and then subsequent developing osteonecrosis of the jaw and osteomyelitis and has been on multiple courses of antibiotics patient was offered extensive surgery at [facility] few years ago which was refused as the chances of healing were low and the patient has been dealing with draining sinuses initially from the lower end of the mandible and now in the upper end of the mandible concerning for infection and underlying osteomyelitis. 2local culture have been obtained that will guide further antibiotic therapy. 3await oral surgery evaluation for any surgical intervention for deep culture 4patient will be treated with vancomycin pharmacy to dose increase the dose of Unasyn to 3 g every 6 hours pending culture completion. We will follow on clinical condition and cultures to further adjust medication if needed Thank you for this consultation we will follow the patient along with you Dictation was produced using [employer] dictation software. please excuse any grammatical, word or spelling errors. Time with Patient: Greater than 30
--- NOTE | 2024-07-19 12:15 | P.PN ---
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 On today's evaluation that is 07/19/2023, patient has been afebrile, patient is breathing comfortably and is currently on room air, patient denies having any significant cough no chest pain, patient denies nausea vomiting or diarrhea and no abdominal pain, denies any worsening pain to the right jaw Patient did have a creatinine 1.03 cultures are currently pending Objective - Vital Signs Vital signs: Vital Signs Temp 97.3 F L 07/19/24 07:14 Pulse 57 L 07/19/24 09:45 Resp 16 07/19/24 09:45 BP 152/57 07/19/24 07:14 Pulse Ox 100 07/19/24 07:14 FiO2 Intake & Output 07/18/24 07/19/24 07/19/24 18:59 06:59 18:59 Intake Total 300 Balance 300 Intake: Oral 300 Other: Voiding Method Self-Catheterization Self-Catheterization Self-Catheterization # Voids 4 2 # Bowel Movements 3 - Exam GENERAL DESCRIPTION: An elderly male lying in bed in no distress HEENT: Right-sided facial/mandibular area wound is currently dressed no drainage RESPIRATORY SYSTEM: Unlabored breathing , decreased breath sounds at bases HEART: S1 S2 regular rate and rhythm , ABDOMEN: Soft , no tenderness EXTREMITIES: No edema feet - Labs CBC & Chem 7: 07/18/24 05:59 07/19/24 03:45 Labs: Microbiology - Last 24 Hours (Table) 07/18/24 12:00 Gram Stain - Preliminary Face Assessment and Plan (1) Wound infection Current Visit: Yes Status: Acute Code(s): T14.8XXA - OTHER INJURY OF UNSPECIFIED BODY REGION, INITIAL ENCOUNTER; L08.9 - LOCAL INFECTION OF THE SKIN AND SUBCUTANEOUS TISSUE, UNSP SNOMED Code(s): 89498945 (2) Osteomyelitis of mandible Current Visit: No Status: Acute Code(s): M27.2 - INFLAMMATORY CONDITIONS OF JAWS SNOMED Code(s): 176805120 Plan: 1patient with the extensive history of squamous cell carcinoma of the base of the tongue in this patient who has received radiation treatment and then subsequent developing osteonecrosis of the jaw and osteomyelitis and has been on multiple courses of antibiotics patient was offered extensive surgery at [facility] few years ago which was refused as the chances of healing over low and the patient has been dealing with draining sinuses initially from the lower end of the mandible and now in the upper end of the mandible concerning for infection and underlying osteomyelitis. 2local culture have been obtained which are currently pending 3await oral surgery evaluation for any surgical intervention for deep culture 4patient currently being treated with vancomycin pharmacy to dose and Unasyn to 3 g every 6 hours while waiting for the culture to finalize Dictation was produced using [employer] software. please excuse any gr ammatical, word or spelling errors.
--- NOTE | 2024-07-19 12:34 | P.PN ---
Subjective This is a pleasant 89 years old male who presents today because of worsening discharge from his right cheek wound. 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 Sheffield but that was several months ago. However this was worsening over the last 3 to 4 days ago. Patient was recently on the doxycycline chronically for about 4 months. He denies any other specific complaint. No smoking alcohol or illicit drug. Patient had history of cancer at the base of the tongue that was more than a year ago. Patient has been on oral antibiotics for about 1 year Also patient has evidence of induration around the right ankle, looks like at least mass or fibrous tissue There are 2 openings on the right cheek, 1 regarding the middle with some yellowish liquidy discharge. And 1 be needed with no significant discharge Patient is afebrile and vital stable WBC 7.1 Hemoglobin 11.1 Rest of CBC, BMP and LFT are unremarkable except for mildly elevated potassium 5.5 CT of the face showing right mandible abnormal with osseous erosions and new foci of gas Patient started on Unasyn IV vancomycin and admitted with IV team consult 07/18 Patient clinically was improving He denies any pain in his right cheek His right cheek wound looks drying, currently there is no purulent discharge and no surrounding cellulitis He was kept on IV vancomycin and Unasyn Wound culture was sent 07/19 Patient right cheek wound infection is improving On IV vancomycin and Unasyn Pending final results of culture sent to the lab Possible discharge in 24 to 48 hours No new complaint Plan of care discussed with patient and at bedside and they agree. Also they agreed to close follow-up outpatient with Dr. Sauceda in [address] Carvalho in 1 week as instructed Objective - Vital Signs Vital signs: Vital Signs Temp 97.3 F L 07/19/24 07:14 Pulse 57 L 07/19/24 09:45 Resp 16 07/19/24 09:45 BP 152/57 07/19/24 07:14 Pulse Ox 100 07/19/24 07:14 FiO2 Intake & Output 07/18/24 07/19/24 07/19/24 18:59 06:59 18:59 Intake Total 300 Balance 300 Intake: Oral 300 Other: Voiding Method Self-Catheterization Self-Catheterization Self-Catheterization # Voids 4 2 # Bowel Movements 3 - Exam GENERAL: The patient is alert and oriented x3, not in any acute distress. Well developed, well nourished. -HEENT: Pupils are round and equally reacting to light. EOMI. No scleral icterus. No conjunctival pallor. Normocephalic, atraumatic. No pharyngeal irma thema. No thyromegaly. Right cheek wound, swellin and induration around the right jaw angle CARDIOVASCULAR: S1 and S2 present. No murmurs, rubs, or gallops. PULMONARY: Chest is clear to auscultation, no wheezing , no crackles. ABDOMEN: Soft, nontender, nondistended, normoactive bowel sounds. No palpable organomegaly. MUSCULOSKELETAL: No joint swelling or deformity. EXTREMITIES: No cyanosis, clubbing, or pedal edema. NEUROLOGICAL: Gross neurological examination did not reveal any focal deficits. SKIN: No rashes. no petechiae. - Labs CBC & Chem 7: 07/18/24 05:59 07/19/24 03:45 Labs: Microbiology - Last 24 Hours (Table) 07/18/24 12:00 Gram Stain - Preliminary Face Assessment and Plan Assessment: Acute on chronic right cheek wound with recent worsening discharge medication wound infection, nonhealing. Associated with abnormal lower right mandible and osseous erosions with new foci of gas on CT of the face Mild hyperkalemia Mild anemia, chronic History of squamous cell cancer of the tongue Plan: continue with IV antibiotic, currently on IV vancomycin and Unasyn Infectious disease consult Follow-up culture results Orofacial surgical consult Labs and medication were reviewed.. Continue same treatment. Continue with symptomatic treatment. Resume home medication. Monitor labs and vitals. DVT and GI prophylaxis. Further recommendations as per clinical course of the patient DVT prophylaxis: Subcutaneous heparin GI Prophylaxis: Pepcid Prognosis is guarded
--- NOTE | 2024-07-19 17:12 | P.CON ---
Consult Note - . Consult date: 07/19/24 Assessment/Plan:: Subjective: 89-year-old male known to my practice with a history of squamous cell carcinoma of the base of the tongue diagnosed in 2003. It was treated with resection chemo and radiation. 2020 the patient was referred to [facility] for jaw resection and free flap reconstruction. This treatment was rejected at the time with a conservative debridement and IV antibiotics when necessary. Patient's is primary caregiver and has been doing all of his home care. She recently noticed that the wound on his face had doubled in size and appeared to be getting deeper and she sought care with Dr. Sauceda's office outpatient. He advised that she see the ER and at that time was admitted. She reports he is taking an appropriate fluids and food at home. She also reports there is been no episodes of saliva draining into the neck through the 2 openings in his right face. Objective: Patient wounds on the right face are approximately 5 mm x 5 mm in the superior portion over the right mandibular ramus. This is filled with a silver wound dressing and a Band-Aid over top of that skin. No discharge is noted from this wound. Inferior to this by approximately 2 cm is a smaller skin wound which has yellow crust around the outside and no discharge at this time. The tissues and skin over this area are normal color and are firm most likely secondary to her chronic radiation injury. There is some hair growth in the area but it is sparse. The patient's mouth can open 20 mm with some discomfort on the right. Patient has exposed bone in the area of the right mandibular body. The mucosa in this area is pink with no obvious discharge. His oral hygiene is good given the limited opening. No pus or swelling noted intraorally. 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 Long conversation with the and patient regarding how the surgery to resect this portion of the mandible is not something they would like to do. 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 He may not tolerate the anesthesia for that period of time that is required to resect the mandible and replace it with free fibular graft. Recommend continuing oral care. Important to keep the mouth clean as best as possible due to the open wound inside the mouth. Based on their past success at keeping this wound clean I would be confident that they can continue to do so in the future. Offered another referral to [facility] and patient and declined
[2024-07-20] MEDS: VANCOMYCIN TROUGH DUE 1 EACH MISC MISCELLANE ONE (14:38)
--- NOTE | 2024-07-20 15:34 | P.PN ---
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 On today's evaluation that is 07/20/2024, Patient is afebrile this morning patient denies having any chest pain shortness of breath or cough, the patient is currently on room air, patient denies any abdominal pain no diarrhea no n ausea no vomiting denies any worsening pain to the right jaw area. No new lab has been repeated today cultures are currently pending Objective - Vital Signs Vital signs: Vital Signs Temp 97.5 F L 07/20/24 07:28 Pulse 55 L 07/20/24 07:28 Resp 16 07/20/24 07:28 BP 113/71 07/20/24 07:28 Pulse Ox 98 07/20/24 07:28 FiO2 Intake & Output 07/19/24 07/20/24 07/20/24 18:59 06:59 18:59 Other: Voiding Method Self-Catheterization Self-Catheterization # Voids 3 1 - Exam GENERAL DESCRIPTION: An elderly male lying in bed in no distress HEENT: Right-sided facial/mandibular area wound is currently dressed no drainage RESPIRATORY SYSTEM: Unlabored breathing , decreased breath sounds at bases HEART: S1 S2 regular rate and rhythm , ABDOMEN: Soft , no tenderness EXTREMITIES: No edema feet - Labs CBC & Chem 7: 07/18/24 05:59 07/19/24 03:45 Labs: Microbiology - Last 24 Hours (Table) 07/18/24 12:00 Gram Stain - Preliminary Face Wound Culture - Preliminary Assessment and Plan (1) Wound infection Current Visit: Yes Status: Acute Code(s): T14.8XXA - OTHER INJURY OF U NSPECIFIED BODY REGION, INITIAL ENCOUNTER; L08.9 - LOCAL INFECTION OF THE SKIN AND SUBCUTANEOUS TISSUE, UNSP SNOMED Code(s): 76193153 (2) Osteomyelitis of mandible Current Visit: No Status: Acute Code(s): M27.2 - INFLAMMATORY CONDITIONS OF JAWS SNOMED Code(s): 861044791 Plan: 1patient with the extensive history of squamous cell carcinoma of the base of the tongue in this patient who has received radiation treatment and then subsequent developing osteonecrosis of the jaw and osteomyelitis and has been on multiple courses of antibiotics patient was offered extensive surgery at [facility] few years ago which was refused as the chances of healing over low and the patient has been dealing with draining sinuses initially from the lower end of the mandible and now in the upper end of the mandible concerning for infection and underlying osteomyelitis. 2local culture have been obtained which are currently pending 3patient has been evaluated by oral surgery recommendation noted was offered referral to [facility] which the family has refused 4patient currently treated vancomycin pharmacy to dose and Unasyn to 3 g every 6 hours while waiting for the culture to finalize to determine discharge antibi otics Dictation was produced using [employer] dictation software. please excuse any grammatical, word or spelling errors. Time with Patient: Less than 30
[2024-07-20 15:47] LABS: African American GFR (CKD) 63 (>60 ml/min/1.73 sqM); Non-African American GFR(CKD) 55 (>60 ml/min/1.73 sqM)
[2024-07-20] MEDS: AMPICILLIN-SULBACTAM 3 GM in SODIUM CHLORIDE 0.9% 100 ML IVPB SCH (16:19)
--- NOTE | 2024-07-20 18:40 | P.PN ---
Subjective This is a pleasant 89 years old male who presents today because of worsening discharge from his right cheek wound. 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 Sheffield but that was several months ago. However this was worsening over the last 3 to 4 days ago. Patient was recently on the doxycycline chronically for about 4 months. He denies any other specific complaint. No smoking alcohol or illicit drug. Patient had history of cancer at the base of the tongue that was more than a year ago. Patient has been on oral antibiotics for about 1 year Also patient has evidence of induration around the right ankle, looks like at least mass or fibrous tissue There are 2 openings on the right cheek, 1 regarding the middle with some yellowish liquidy discharge. And 1 be needed with no significant discharge Patient is afebrile and vital stable WBC 7.1 Hemoglobin 11.1 Rest of CBC, BMP and LFT are unremarkable except for mildly elevated potassium 5.5 CT of the face showing right mandible abnormal with osseous erosions and new foci of gas Patient started on Unasyn IV vancomycin and admitted with IV team consult 07/18 Patient clinically was improving He denies any pain in his right cheek His right cheek wound looks drying, currently there is no purulent discharge and no surrounding cellulitis He was kept on IV vancomycin and Unasyn Wound culture was sent 07/19 Patient right cheek wound infection is improving On IV vancomycin and Unasyn Pending final results of culture sent to the lab Possible discharge in 24 to 48 hours No new complaint Plan of care discussed with patient and at bedside and they agree. Also they agreed to close follow-up outpatient with Dr. Sauceda in [address] Carvalho in 1 week as instructed 07/20 Patient remains clinically stable and improving slowly and gradually Her right cheek wound is clean, no discharge nor cellulitis. Remains on broad-spectrum antibiotic Wound culture still pending Still with no fever or leukocytosis Patient evaluated by Dr. Bassett from oral surgery and input is appreciated. No surgical intervention for now and patient with family refused referral to [facility]. Objective - Vital Signs Vital signs: Vital Signs Temp 97.3 F L 07/20/24 13:12 Pulse 64 07/20/24 13:12 Resp 16 07/20/24 13:12 BP 111/75 07/20/24 13:12 Pulse Ox 99 07/20/24 13:12 FiO2 Intake & Output 07/19/24 07/20/24 07/20/24 18:59 06:59 18:59 Intake Total 430 Balance 430 Intake: Oral 430 Other: Voiding Method Self-Catheterization Self-Catheterization Self-Catheterization # Voids 3 1 3 - Exam GENERAL: The patient is alert and oriented x3, not in any acute distress. Well developed, well nourished. -HEENT: Pupils are round and equally reacting to light. EOMI. No scleral icterus. No conjunctival pallor. Normocephalic, atraumatic. No pharyngeal erythema. No thyromegaly. Right cheek wound, swellin and induration around the right jaw angle CARDIOVASCULAR: S1 and S2 present. No murmurs, rubs, or gallops. PULMONARY: Chest is clear to auscultation, no wheezing , no crackles. ABDOMEN: Soft, nontender, nondistended, normoactive bowel sounds. No palpable organomegaly. MUSCULOSKELETAL: No joint swelling or deformity. EXTREMITIES: No cyanosis, clubbing, or pedal edema. NEUROLOGICAL: Gross neurological examination did not reveal any focal deficits. SKIN: No rashes. no petechiae. - Labs CBC & Chem 7: 07/18/24 05:59 07/20/24 14:38 Labs: Microbiology - Last 24 Hours (Table) 07/18/24 12:00 Gram Stain - Preliminary Face Wound Culture - Preliminary Assessment and Plan Assessment: Acute on chronic right cheek wound with recent worsening discharge medication wound infection, nonhealing. Associated with abnormal lower right mandible and osseous erosions with new foci of gas on CT of the face Mild hyperkalemia Mild anemia, chronic History of squamous cell cancer of the tongue Plan: continue with IV antibiotic, currently on IV vancomycin and Unasyn Infectious disease consult Follow-up culture results Orofacial surgical consult is appreciated and recommendation is noted Labs and medication were reviewed.. Continue same treatment. Continue with symptomatic treatment. Resume home medication. Monitor labs and vitals. DVT and GI prophylaxis. Further recommendations as per clinical course of the patient DVT prophylaxis: Subcutaneous heparin GI Prophylaxis: Pepcid Prognosis is guarded
[2024-07-21 04:41] LABS: African American GFR (CKD) 70 (>60 ml/min/1.73 sqM); Non-African American GFR(CKD) 60 (>60 ml/min/1.73 sqM)
[2024-07-21] MEDS: VANCOMYCIN 1,500 MG in SODIUM CHLORIDE 0.9% 500 ML 500 ML IVPB SCH (09:09)
--- NOTE | 2024-07-21 12:11 | P.PN ---
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 On today's evaluation that is 07/21/2024,the patient denies any fever or any chills, patient is breathing comfortably on room air, the patient denies chest pain shortness of breath and no significant cough, patient denies abdominal pain, no nausea vomiting or diarrhea. Patient circumventing of pain to the right jaw area and weakness. Patient did have a creatinine 1.09 cultures are currently pending Objective - Vital Signs Vital signs: Vital Signs Temp 97.4 F L 07/21/24 07:18 Pulse 86 07/21/24 07:18 Resp 18 07/21/24 07:18 BP 138/67 07/21/24 07:18 Pulse Ox 99 07/21/24 07:18 FiO2 Intake & Output 07/20/24 07/21/24 07/21/24 18:59 06:59 18:59 Intake Total 430 Balance 430 Intake: Oral 430 Other: Voiding Method Self-Catheterization Self-Catheterization # Voids 3 0 - Exam GENERAL DESCRIPTION: An elderly male lying in bed in no distress HEENT: Right-sided facial/mandibular area wound is currently dressed no drainage RESPIRATORY SYSTEM: Unlabored breathing , decreased breath sounds at bases HEART: S1 S2 regular rate and rhythm , ABDOMEN: Soft , no tenderness EXTREMITIES: No edema feet - Labs CBC & Chem 7: 07/18/24 05:59 07/21/24 04:01 Labs: Microbiology - Last 24 Hours (Table) 07/18/24 12:00 Anaerobic Culture - Preliminary Face 07/18/24 12:00 Gram Stain - Preliminary Face Wound Culture - Preliminary Assessment and Plan (1) Wound infection Current Visit: Yes Status: Acute Code(s): T14.8XXA - OTHER INJURY OF UNSPECIFIED BODY REGION, INITIAL ENCOUNTER; L08.9 - LOCAL INFECTION OF THE SKIN AND SUBCUTANEOUS TISSUE, UNSP SNOMED Code(s): 23726383 (2) Osteomyelitis of mandible Current Visit: No Status: Acute Code(s): M27.2 - INFLAMMATORY CONDITIONS OF JAWS SNOMED Code(s): 859355083 Plan: 1patient with the extensive history of squamous cell carcinoma of the base of the tongue in this patient who has received radiation treatment and then subsequent developing osteonecrosis of the jaw and osteomyelitis and has been on multiple courses of antibiotics patient was offered extensive surgery at [facility] few years ago which was refused as the chances of healing over low and the patient has been dealing with draining sinuses initially from the lower end of the mandible and now in the upper end of the mandible concerning for infection and underlying osteomyelitis. 2local culture have been obtained which are currently pending, patient is currently being treated with vancomycin pharmacy to dose and Unasyn to 3 g every 6 hours while waiting for the culture to finalize to determine discharge antibiotics Grandson at the bedside questions answered Dictation was produced using [employer] dictation software. please excuse any grammatical, word or spelling errors. Time with Patient: Less than 30
--- NOTE | 2024-07-22 04:33 | P.PN ---
Subjective This is a pleasant 89 years old male who presents today because of worsening discharge from his right cheek wound. 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 Sheffield but that was several months ago. However this was worsening over the last 3 to 4 days ago. Patient was recently on the doxycycline chronically for about 4 months. He denies any other specific complaint. No smoking alcohol or illicit drug. Patient had history of cancer at the base of the tongue that was more than a year ago. Patient has been on oral antibiotics for about 1 year Also patient has evidence of induration around the right ankle, looks like at least mass or fibrous tissue There are 2 openings on the right cheek, 1 regarding the middle with some yellowish liquidy discharge. And 1 be needed with no significant discharge Patient is afebrile and vital stable WBC 7.1 Hemoglobin 11.1 Rest of CBC, BMP and LFT are unremarkable except for mildly elevated potassium 5.5 CT of the face showing right mandible abnormal with osseous erosions and new foci of gas Patient started on Unasyn IV vancomycin and admitted with IV team consult 07/18 Patient clinically was improving He denies any pain in his right cheek His right cheek wound looks drying, currently there is no purulent discharge and no surrounding cellulitis He was kept on IV vancomycin and Unasyn Wound culture was sent 07/19 Patient right cheek wound infection is improving On IV vancomycin and Unasyn Pending final results of culture sent to the lab Possible discharge in 24 to 48 hours No new complaint Plan of care discussed with patient and at bedside and they agree. Also they agreed to close follow-up outpatient with Dr. Sauceda in [address] Carvalho in 1 week as instructed 07/20 Patient remains clinically stable and improving slowly and gradually Her right cheek wound is clean, no discharge nor cellulitis. Remains on broad-spectrum antibiotic Wound culture still pending Still with no fever or leukocytosis Patient evaluated by Dr. Bassett from oral surgery and input is appreciated. No surgical intervention for now and patient with family refused referral to [facility]. 07/21 Patient is clinically improving Pending wound culture final results Objective - Vital Signs Vital signs: Vital Signs Temp 98.5 F 07/21/24 19:00 Pulse 76 07/21/24 19:00 Resp 18 07/21/24 19:00 BP 103/61 07/21/24 19:00 Pulse Ox 100 07/21/24 19:00 FiO2 Intake & Output 07/21/24 07/21/24 07/22/24 06:59 18:59 06:59 Other: Voiding Method Self-Catheterization Self-Catheterization # Voids 0 2 # Bowel Movements 1 - Exam GENERAL: The patient is alert and oriented x3, not in any acute distress. Well developed, well nourished. -HEENT: Pupils are round and equally reacting to light. EOMI. No scleral icterus. No conjunctival pallor. Normocephalic, atraumatic. No pharyngeal irma thema. No thyromegaly. Right cheek wound, swellin and induration around the right jaw angle CARDIOVASCULAR: S1 and S2 present. No murmurs, rubs, or gallops. PULMONARY: Chest is clear to auscultation, no wheezing , no crackles. ABDOMEN: Soft, nontender, nondistended, normoactive bowel sounds. No palpable organomegaly. MUSCULOSKELETAL: No joint swelling or deformity. EXTREMITIES: No cyanosis, clubbing, or pedal edema. NEUROLOGICAL: Gross neurological examination did not reveal any focal deficits. SKIN: No rashes. no petechiae. - Labs CBC & Chem 7: 07/18/24 05:59 07/21/24 04:01 Labs: Microbiology - Last 24 Hours (Table) 07/18/24 12:00 Anaerobic Culture - Preliminary Face 07/18/24 12:00 Gram Stain - Preliminary Face Wound Culture - Preliminary Assessment and Plan Assessment: Acute on chronic right cheek wound with recent worsening discharge medication wound infection, nonhealing. Associated with abnormal lower right mandible and osseous erosions with new foci of gas on CT of the face Mild hyperkalemia Mild anemia, chronic History of squamous cell cancer of the tongue Plan: continue with IV antibiotic, currently on IV vancomycin and Unasyn Infectious disease consult Follow-up culture results Orofacial surgical consult is appreciated and recommendation is noted Labs and medication were reviewed.. Continue same treatment. Continue with symptomatic treatment. Resume home medication. Monitor labs and vitals. DVT and GI prophylaxis. Further recommendations as per clinical course of the patient DVT prophylaxis: Subcutaneous heparin GI Prophylaxis: Pepcid Prognosis is guarded
[2024-07-22 05:19] LABS: African American GFR (CKD) 66 (>60 ml/min/1.73 sqM); Anion Gap 4 mmol/L; Blood Urea Nitrogen 18 mg/dL (9-20); Calcium 9.1 mg/dL (8.4-10.2); Carbon Dioxide 31 mmol/L (22-30); Chloride 103 mmol/L (98-107); Glucose 87 mg/dL (74-99); Non-African American GFR(CKD) 57 (>60 ml/min/1.73 sqM); Potassium 4.1 mmol/L (3.5-5.1); Sodium 138 mmol/L (137-145)
[2024-07-22 09:23] LABS: Basophils # (A) 0.01 X 10*3/uL (0.00-0.10); Basophils % (A) 0.2 %; Eosinophils # (A) 0.28 X 10*3/uL (0.04-0.35); Eosinophils % (A) 4.8 %; HCT 31.6 % (39.6-50.0); HGB 10.4 g/dL (13.0-17.0); Lymphocytes # (A) 1.97 X 10*3/uL (0.90-5.00); MCH 31.3 pg (27.0-32.0); MCHC 32.9 g/dL (32.0-37.0); MCV 95.2 FL (80.0-97.0); Mean Platelet Volume 10.5 FL (9.5-12.2); Monocytes # (A) 0.46 X 10*3/uL (0.20-1.00); Monocytes % (A) 7.9 %; NRBC Per 100 WBC 0 X 10*3/uL (0.00-0.01); Neutrophils # (A) 3.06 X 10*3/uL (1.80-7.70); Neutrophils % (A) 52.8 %; Platelet Count 176 X 10*3/uL (140-440); RBC 3.32 X 10*6/uL (4.40-5.60); RDW 14.2 % (11.5-14.5)
[2024-07-22 11:57] LABS: Erythrocyte Sedimentation Rate 21 mm/Hr (0-20)
--- NOTE | 2024-07-22 12:04 | P.PN ---
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 On today's evaluation that is 07/22/2024,the patient remains to be afebrile, patient is on room air not requiring supplemental oxygen and denies any shortness of breath no chest pain or cough.Patient denies having any nausea or vomiting, no abdominal pain and no diarrhea has been reported, the patient pain to the right jaw is about the same as yesterday. Patient white count is 5.80 creatinine is 1.15 Vanco trough is 10.1 local culture growing anaerobic gram-negative bacilli Objective - Vital Signs Vital signs: Vital Signs Temp 97.6 F 07/22/24 07:05 Pulse 64 07/22/24 07:05 Resp 17 07/22/24 07:05 BP 123/72 07/22/24 07:05 Pulse Ox 100 07/22/24 07:05 FiO2 Intake & Output 07/21/24 07/22/24 07/22/24 18:59 06:59 18:59 Other: Voiding Method Self-Catheterization Self-Catheterization # Voids 2 1 # Bowel Movements 1 1 - Exam GENERAL DESCRIPTION: An elderly male lying in bed in no distress HEENT: Right-sided facial/mandibular area wound is currently dressed no drainage RESPIRATORY SYSTEM: Unlabored breathing , decreased breath sounds at bases HEART: S1 S2 regular rate and rhythm , ABDOMEN: Soft , no tenderness EXTREMITIES: No edema feet - Labs CBC & Chem 7: 07/22/24 04:15 07/22/24 04:15 Labs: Abnormal Lab Results - Last 24 Hours (Table) 07/22/24 07/22/24 Range/Units 04:15 04:15 RBC 3.32 L (4.40-5.60) X 10*6/uL Hgb 10.4 L (13.0-17.0) g/dL Hct 31.6 L (39.6-50.0) % Carbon Dioxide 31 H (22-30) mmol/L Microbiology - Last 24 Hours (Table) 07/18/24 12:00 Anaerobic Culture - Final Face Anaerobic Gm Negative Bacilli Anaerobic Gm Positive Bacill Assessment and Plan (1) Wound infection Current Visit: Yes Status: Acute Code(s): T14.8XXA - OTHER INJURY OF UNSPECIFIED BODY REGION, INITIAL ENCOUNTER; L08.9 - LOCAL INFECTION OF THE SKIN AND SUBCUTANEOUS TISSUE, UNSP SNOMED Code(s): 18390586 (2) Osteomyelitis of mandible Current Visit: No Status: Acute Code(s): M27.2 - INFLAMMATORY CONDITIONS OF JAWS SNOMED Code(s): 365048961 Plan: 1patient with the extensive history of squamous cell carcinoma of the base of the tongue in this patient who has received radiation treatment and then subsequent developing osteonecrosis of the jaw and osteomyelitis and has been on multiple courses of antibiotics patient was offered extensive surgery at [facility] few years ago which was refused as the chances of healing over low and the patient has been dealing with draining sinuses initially from the lower end of the mandible and now in the upper end of the mandible concerning for infection and underlying osteomyelitis. 2local culture have been obtained which are currently growing anaerobic gram- negative patient to continue with Unasyn discontinue vancomycin discharge antibiotics on the basis of final culture Dictation was produced using [email or web address] dictation software. please excuse any grammatical, word or spelling errors. Time with Patient: Less than 30
[2024-07-22 12:59] VITALS: BMI 24.7
--- NOTE | 2024-07-22 13:27 | P.PN ---
Subjective Progress Note Date: 07/22/24 This is a pleasant 89 years old male who presents today because of worsening discharge from his right cheek wound. 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 Sheffield but that was several months ago. However this was worsening over the last 3 to 4 days ago. Patient was recently on the doxycycline chronically for about 4 months. He denies any other specific complaint. No smoking alcohol or illicit drug. Patient had history of cancer at the base of the tongue that was more than a year ago. Patient has been on oral antibiotics for about 1 year Also patient has evidence of induration around the right ankle, looks like at least mass or fibrous tissue There are 2 openings on the right cheek, 1 regarding the middle with some yellowish liquidy discharge. And 1 be needed with no significant discharge Patient is afebrile and vital stable WBC 7.1 Hemoglobin 11.1 Rest of CBC, BMP and LFT are unremarkable except for mildly elevated potassium 5.5 CT of the face showing right mandible abnormal with osseous erosions and new foci of gas Patient started on Unasyn IV vancomycin and admitted with IV team consult 07/18 Patient clinically was improving He denies any pain in his right cheek His right cheek wound looks drying, currently there is no purulent discharge and no surrounding cellulitis He was kept on IV vancomycin and Unasyn Wound culture was sent 07/19 Patient right cheek wound infection is improving On IV vancomycin and Unasyn Pending final results of culture sent to the lab Possible discharge in 24 to 48 hours No new complaint Plan of care discussed with patient and at bedside and they agree. Also they agreed to close follow-up outpatient with Dr. Sauceda in [address] Carvalho in 1 week as instructed 07/20 Patient remains clinically stable and improving slowly and gradually Her right cheek wound is clean, no discharge nor cellulitis. Remains on broad-spectrum antibiotic Wound culture still pending Still with no fever or leukocytosis Patient evaluated by Dr. Bassett from oral surgery and input is appreciated. No surgical intervention for now and patient with family refused referral to [facility]. 07/21 Patient is clinically improving Pending wound culture final results 07/22. Patient seen and examined. Laying comfortably in the bed. Patient noted to be afebrile REVIEW OF SYSTEMS: CONSTITUTIONAL: No fever, no malaise,. CARDIOVASCULAR: No chest pain, no palpitations, no syncope. PULMONARY: No shortness of breath, no cough, GASTROINTESTINAL: No diarrhea, no nausea, no vomiting, no abdominal pain. NEUROLOGICAL: No headaches, no weakness, PHYSICAL EXAMINATION: GENERAL: The patient is alert and oriented x3, not in any acute distress. Well developed, well nourished. HEENT: Pupils are round and equally reacting to light. EOMI. No scleral icterus. No conjunctival pallor. Normocephalic, atraumatic. No pharyngeal erythema. No thyromegaly. Right cheek dressing seen CARDIOVASCULAR: S1 and S2 present. No murmurs, rubs, or gallops. PULMONARY: Chest is clear to auscultation, no wheezing or crackles. ABDOMEN: Soft, nontender, nondistended, normoactive bowel sounds. No palpable organomegaly. MUSCULOSKELETAL: No joint swelling or deformity. EXTREMITIES: No cyanosis, clubbing, or pedal edema. NEUROLOGICAL: Gross neurological examination did not reveal any focal deficits. SKIN: No rashes. Assessment and plan Acute on chronic right cheek wound with recent worsening discharge medication wound infection, nonhealing. Associated with abnormal lower right mandible and osseous erosions with new foci of gas on CT of the face Osteomyelitis of mandible Mild hyperkalemia Mild anemia, chronic History of squamous cell cancer of the tongue Monitor vital signs Monitor CBC Monitor CMP Follow-up on wound cultures Continue IV Unasyn ID following Labs and medication were reviewed.. Continue same treatment. Continue with symptomatic treatment. Resume home medication. Monitor labs and vitals. DVT and GI prophylaxis. Further recommendations as per clinical course of the patient Dictation was produced using [employer] dictation software. please excuse any grammatical, word or spelling errors. Objective - Vital Signs Vital signs: Vital Signs Temp 97.6 F 07/22/24 07:05 Pulse 64 07/22/24 07:05 Resp 17 07/22/24 07:05 BP 123/72 07/22/24 07:05 Pulse Ox 100 07/22/24 07:05 FiO2 Intake & Output 07/21/24 07/22/24 07/22/24 18:59 06:59 18:59 Other: Voiding Method Self-Catheterization Self-Catheterization # Voids 2 1 # Bowel Movements 1 1 - Labs CBC & Chem 7: 07/22/24 04:15 07/22/24 04:15 Labs: Abnormal Lab Results - Last 24 Hours (Table) 07/22/24 07/22/24 Range/Units 04:15 04:15 RBC 3.32 L (4.40-5.60) X 10*6/uL Hgb 10.4 L (13.0-17.0) g/dL Hct 31.6 L (39.6-50.0) % ESR 21 H (0-20) mm/Hr Carbon Dioxide 31 H (22-30) mmol/L Microbiology - Last 24 Hours (Table) 07/18/24 12:00 Anaerobic Culture - Final Face Anaerobic Gm Negative Bacilli Anaerobic Gm Positive Bacill
[2024-07-23 08:22] VITALS: RESP 18
[2024-07-23 13:13] VITALS: BP 123/71; PULSE 80; TEMP 98.1
--- NOTE | 2024-07-23 13:22 | P.DS ---
Providers Date of admission: 07/17/24 16:25 Expected date of discharge: 07/23/24 Attending physician: Qamar aGgnon MD Consults: 07/17/24 16:25 Consult Physician Routine Consulting Provider: Nikki Sheffield Consult Reason/Comments: necrotic wound Do you want consulting provider notified?: Yes, Notify in am 07/17/24 19:54 Consult Physician Urgent Consulting Provider: Chucho Bassett Consult Reason/Comments: abn right mandible with osseoius erosion and new foci of gas Do you want consulting provider notified?: Yes, Notify in am Primary care physician: Irvin Sauceda Hospital Course: Discharge diagnoses; Acute on chronic right cheek wound with recent worsening discharge medication wound infection, nonhealing. Associated with abnormal lower right mandible and osseous erosions with new foci of gas on CT of the face Osteomyelitis of mandible Mild hyperkalemia Mild anemia, chronic History of squamous cell cancer of the tongue Hospital course; This is a pleasant 89 years old male who presents today because of worsening discharge from his right cheek wound. 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 Sheffield but that was several months ago. However this was worsening over the last 3 to 4 days ago. Patient was recently on the doxycycline chronically for about 4 months. He denies any other specific complaint. No smoking alcohol or illicit drug. Patient had history of cancer at the base of the tongue that was more than a year ago. Patient has been on oral antibiotics for about 1 year Also patient has evidence of induration around the right ankle, looks like at least mass or fibrous tissue There are 2 openings on the right cheek, 1 regarding the middle with some yellowish liquidy discharge. And 1 be needed with no significant discharge Patient is afebrile and vital stable WBC 7.1 Hemoglobin 11.1 Rest of CBC, BMP and LFT are unremarkable except for mildly elevated potassium 5.5 CT of the face showing right mandible abnormal with osseous erosions and new foci of gas Patient started on Unasyn IV vancomycin and admitted with IV team consult 07/18 Patient clinically was improving He denies any pain in his right cheek His right cheek wound looks drying, currently there is no purulent discharge and no surrounding cellulitis He was kept on IV vancomycin and Unasyn Wound culture was sent 07/19 Patient right cheek wound infection is improving On IV vancomycin and Unasyn Pending final results of culture sent to the lab Possible discharge in 24 to 48 hours No new complaint Plan of care discussed with patient and at bedside and they agree. Also they agreed to close follow-up outpatient with Dr. Sauceda in [address] Carvalho in 1 week as instructed 07/20 Patient remains clinically stable and improving slowly and gradually Her right cheek wound is clean, no discharge nor cellulitis. Remains on broad-spectrum antibiotic Wound culture still pending Still with no fever or leukocytosis Patient evaluated by Dr. Bassett from oral surgery and input is appreciated. No surgical intervention for now and patient with family refused referral to [facility]. 07/21 Patient is clinically improving Pending wound culture final results 07/22. Patient seen and examined. Laying comfortably in the bed. Patient noted to be afebrile 07/23. Patient seen and examined. ID recommended discharging patient on oral Augmentin. Outpatient follow-up with ID PHYSICAL EXAMINATION: GENERAL: The patient is alert and oriented x3, not in any acute distress. Well developed, well nourished. HEENT: Pupils are round and equally reacting to light. EOMI. No scleral icterus. No conjunctival pallor. Normocephalic, atraumatic. No pharyngeal erythema. No thyromegaly. Right cheek dressing seen CARDIOVASCULAR: S1 and S2 present. No murmurs, rubs, or gallops. PULMONARY: Chest is clear to auscultation, no wheezing or crackles. ABDOMEN: Soft, nontender, nondistended, normoactive bowel sounds. No palpable organomegaly. MUSCULOSKELETAL: No joint swelling or deformity. EXTREMITIES: No cyanosis, clubbing, or pedal edema. NEUROLOGICAL: Gross neurological examination did not reveal any focal deficits. SKIN: No rashes. Dictation was produced using [employer] dictation software. please excuse any grammatical, word or spelling errors. Patient Condition at Discharge: Stable Plan - Discharge Summary Discharge Rx Participant: No New Discharge Prescriptions: New Amoxic-Pot Clav 875-125Mg [Augmentin 875-125] 1 tab PO BID #60 tab Continue Atorvastatin [Lipitor] 10 mg PO HS Acetaminophen [Tylenol Extra Strength] 500 mg PO BID@0900,1600 diphenhydrAMINE [Benadryl] 25 mg PO QID PRN PRN Reason: Allergy Symptoms Calcium Carbonate [Tums] 500 mg PO TID PRN PRN Reason: Heartburn Carboxymethylcellulose Sodium [Thera Tears] 1 drop BOTH EYES DAILY PRN PRN Reason: Dry Eye(S) Azelastine HCl [Astepro] 2 spr EA NOSTRIL DAILY PRN PRN Reason: Allergy Symptoms Levothyroxine Sodium [Synthroid] 75 mcg PO DAILY@1600 Gabapentin [Neurontin] 400 mg PO TID@0900,1600,2099 Donepezil [Aricept] 10 mg PO HS hydrOXYzine HCL [Atarax] 25 mg PO TID PRN PRN Reason: Anxiety/Itching Multivitamins, Thera [Multivitamin (formulary)] 1 tab PO DAILY@1600 Acetaminophen-Codeine 300-30mg [Tylenol w/codeine #3] 1 tab PO HS Coffee Xt/Phosphatidyl Serine [Neuriva Original 100-100Mg Cap] 1 cap PO DAILY@1600 Discontinued Doxycycline [Vibramycin] 100 mg PO BID 28 Days #56 capsule Discharge Medication List Acetaminophen [Tylenol Extra Strength] 500 mg PO BID@0900,1600 05/28/17 [History] Atorvastatin [Lipitor] 10 mg PO HS 05/28/17 [History] diphenhydrAMINE [Benadryl] 25 mg PO QID PRN 09/30/20 [History] Acetaminophen-Codeine 300-30mg [Tylenol w/codeine #3] 1 tab PO HS 07/09/22 [History] Azelastine HCl [Astepro] 2 spr EA NOSTRIL DAILY PRN 07/09/22 [History] Calcium Carbonate [Tums] 500 mg PO TID PRN 07/09/22 [History] Carboxymethylcellulose Sodium [Thera Tears] 1 drop BOTH EYES DAILY PRN 07/09/22 [History] Coffee Xt/Phosphatidyl Serine [Neuriva Original 100-100Mg Cap] 1 cap PO DAILY@1600 12/29/23 [History] Gabapentin [Neurontin] 400 mg PO TID@0900,1600,209912/29/23 [History] Levothyroxine Sodium [Synthroid] 75 mcg PO DAILY@1600 12/29/23 [History] Donepezil [Aricept] 10 mg PO HS 05/19/24 [History] hydrOXYzine HCL [Atarax] 25 mg PO TID PRN 05/19/24 [History] Multivitamins, Thera [Multivitamin (formulary)] 1 tab PO DAILY@1600 07/17/24 [History] Amoxic-Pot Clav 875-125Mg [Augmentin 875-125] 1 tab PO BID #60 tab 07/23/24 [Rx] Follow up Appointment(s)/Referral(s): Irvin Sauceda MD [Primary Care Provider] - 1-2 days Nikki Sheffield MD [STAFF PHYSICIAN] - 1 Week Discharge Disposition: HOME SELF-CARE
--- NOTE | 2024-07-23 15:13 | P.PN ---
Subjective Progress Note Date: 07/23/24 Principal diagnosis: Reason for follow-up is right toe wound and osteomyelitis Patient is a 89-year-old male with a past medical history significant for squamous cell carcinoma of the base of the tongue history of radiation treatment patient also have a extensive surgery to the jaw and has been dealing with osteonecrosis/osteomyelitis of the right jaw for couple of years now presented to hospital with worsening sore to the right side of the facial area did have significant normality on the CT and purulent drainage has been cultured. On today's evaluation that is 07/23/2024, the patient continues to be afebrile, the patient is on room air and breathing comfortably, the Pt denies having any chest pain or cough, the patient denies having any abdominal pain no vomiting or any diarrhea has been reported by the nursing staff, denies any worsening pain of the right jaw area. Patient white count is 5.0, creatinine is 1.25 culture with anaerobic, positive and negative bacilli Objective - Vital Signs Vital signs: Vital Signs Temp 97.5 F L 07/23/24 07:23 Pulse 72 07/23/24 07:23 Resp 18 07/23/24 07:23 BP 135/78 07/23/24 07:23 Pulse Ox 98 07/23/24 07:23 FiO2 Intake & Output 07/22/24 07/23/24 07/23/24 18:59 06:59 18:59 Intake Total 400 Balance 400 Weight 65.317 kg Intake: Oral 400 Other: Voiding Method Self-Catheterization # Voids 2 3 # Bowel Movements 1 1 - Exam GENERAL DESCRIPTION: An elderly male lying in bed in no distress HEENT: Right-sided facial/mandibular area wound is currently dressed no drainage RESPIRATORY SYSTEM: Unlabored breathing , decreased breath sounds at bases HEART: S1 S2 regular rate and rhythm , ABDOMEN: Soft , no tenderness EXTREMITIES: No edema feet - Labs CBC & Chem 7: 07/22/24 04:15 07/22/24 04:15 Labs: Microbiology - Last 24 Hours (Table) 07/18/24 12:00 Gram Stain - Final Face Wound Culture - Final Assessment and Plan (1) Wound infection Current Visit: Yes Status: Acute Code(s): T14.8XXA - OTHER INJURY OF UNSPECIFIED BODY REGION, INITIAL ENCOUNTER; L08.9 - LOCAL INFECTION OF THE SKIN AND SUBCUTANEOUS TISSUE, UNSP SNOMED Code(s): 29878646 (2) Osteomyelitis of mandible Current Visit: No Status: Acute Code(s): M27.2 - INFLAMMATORY CONDITIONS OF JAWS SNOMED Code(s): 812942889 Plan: 1patient with the extensive history of squamous cell carcinoma of the base of the tongue in this patient who has received radiation treatment and then subsequent developing osteonecrosis of the jaw and osteomyelitis and has been on multiple courses of antibiotics patient was offered extensive surgery at [facility] few years ago which was refused as the chances of h ealing over low and the patient has been dealing with draining sinuses initially from the lower end of the mandible and now in the upper end of the mandible concerning for infection and underlying osteomyelitis. 2local culture have been obtained which are currently growing anaerobic gram negative and gram-positive bacilli 3patient care has been discussed in detail with the and family member at the bedside keeping in mind his chronic condition patient likely to be on lifelong suppressive oral antibiotic therapy on the basis of this culture recommend Augmentin 875 twice daily prescription was sent to the pharmacy advised to follow-up in the office in 1 to 2 weeks multiple question concern answered at the bedside Dictation was produced using [employer] dictation software. please excuse any grammatical, word or spelling errors. Time with Patient: Less than 30
== END 2024-07-23 15:11 | disposition home or self-care (01) | DRG 605 ==
LOC: EC 12:55 → 4SSUR 16:25
PROVIDERS: ADMIT Internal Medicine; ATTEND Internal Medicine
DX: S01.401A Unspecified open wound of right cheek and temporomandibular area, initial encounter (principal); D64.9 Anemia, unspecified; M87.88 Other osteonecrosis, other site; E78.5 Hyperlipidemia, unspecified; E87.5 Hyperkalemia; Z85.810 Personal history of malignant neoplasm of tongue; K21.9 Gastro-esophageal reflux disease without esophagitis; Y84.2 Radiological procedure and radiotherapy as the cause of abnormal reaction of the patient, or of later complication, without mention of misadventure at the time of the procedure; Z79.890 Hormone replacement therapy; Z87.891 Personal history of nicotine dependence; Z79.899 Other long term (current) drug therapy
CPT/HCPCS: 36415; 70486; 80048; 80053; 80202; 82565; 85025; 85652; 86140; 87070; 87075; 87205; 96365; 96366; 96375; 99285